=== PATIENT | female | born 1940 | race Caucasian/White ===

== ENCOUNTER 2019-12-24 14:30 | Outpatient (CLI) | payer OTHER, SELFPAY ==
[2019-12-24 16:51] LABS: CRP 0.5 mg/dL (<1.0); Rheumatoid Factor < 8.6 IU/ML (<12); Uric Acid 4.6 mg/dL (2.5-7.5)
[2019-12-24 16:55] LABS: Erythrocyte Sedimentation Rate 25 mm/hr (0-20)
[2019-12-26 09:56] LABS: ANA Cascade Screen Positive (Negative)
[2019-12-26 22:09] LABS: Anti Cyclic Citrullinated Pept <16 Units (<20)
[2019-12-27 10:32] LABS: ANCA Screen Negative (Negative); Myeloperoxidase Ab <1.0 AI (<1.0); Proteinase-3 Ab <1.0 AI (<1.0); S cerevisiae Ab (IgA) 4.9 U (<=20.0); S cerevisiae Ab (IgG) 13.4 U (<=20.0)
[2019-12-29 11:56] LABS: Chromatin (Nucleosomal) Ab <1.0; Chromatin Antibody Charge YES; DNA (ds) Antibody Charge YES; RNP Antibody 1.4; RNP Antibody Charge YES; Sm Antibody <1.0; Sm Antibody Charge YES; Sm/RNP Antibody <1.0; Sm/RNP Antibody Charge YES
== END 2019-12-24 14:31 | disposition home or self-care (01) ==
PROVIDERS: PCP Family Medicine; Visit Provider Internal Medicine
DX: M19.90 Unspecified osteoarthritis, unspecified site (principal); Z11.59 Encounter for screening for other viral diseases
CPT/HCPCS: 36415; 84550; 85652; 86021; 86038; 86140; 86200; 86430; 86671

== ENCOUNTER 2019-12-24 15:29 | Outpatient (CLI) | payer OTHER, SELFPAY ==
--- NOTE | ~2019-12-24 | XR_ITS ---
EXAMINATION: XR foot LT standing 2V EXAM DATE: 12/24/2019 16:15 INDICATION: Polyarticular osteoarthritis. TECHNIQUE: Frontal and lateral projections of the left foot. There is no prior study for comparison . FINDINGS: There is moderate left 1st MTP primary osteoarthritis. There is severe talonavicular primar y osteoarthritis. Otherwise relatively mild osteoarthritis. There are no acute fractures or dislocati ons identified. There is no subcutaneous gas. The soft tissue is unremarkable. There are no radio paque foreign bodies. There are no bony erosions identified. IMPRESSION: Advanced left talonavicular and moderate 1st MTP osteoarthritis. Reviewed, dictated and finalized at location G.
--- NOTE | ~2019-12-24 | XR_ITS ---
EXAMINATION: XR foot RT standing 2V EXAM DATE: 12/24/2019 16:15 INDICATION: Osteoarthritis. TECHNIQUE: Frontal and lateral projections of the right foot. There is no prior study for compariso n. 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 There is severe hallu x valgus and moderate 1st MTP osteoarthritis. There are no bony erosions identified. There are no acu te fractures or dislocations identified. There is no subcutaneous gas. The soft tissue is unremarka ble. There are no radiopaque foreign bodies. IMPRESSION: Severe right hallux valgus, moderate 1st MTP osteoarthritis. Reviewed, dictated and finalized at location G.
--- NOTE | ~2019-12-24 | XR_ITS ---
XR knee LT 3V, XR knee RT 3V 12/24/2019 16:16 (accession [id number]), 12/24/2019 16:15 (accession [id number]) Indication: Osteoarthritis. Knee pain. Procedure: 3 views of each knee Comparison: No prior studies for comparison. Findings: There is mild tricompartment osteoarthritis of the right knee. No significant degenerative change of the left knee. No fracture or traumatic malalignment. No significant joint effusion. Impression: 1: Mild tricompartment osteoarthritis of the right knee. Reviewed, dictated and finalized at location A. Impression: 1: Mild tricompartment osteoarthritis of the right knee. Impression: 1: Mild tricompartment osteoarthritis of the right knee.
--- NOTE | ~2019-12-24 | XR_ITS ---
EXAMINATION: XR hand BI arthritis min 3V EXAM DATE: 12/24/2019 16:16 INDICATION: Osteoarthritis. TECHNIQUE: Right hand frontal, lateral and oblique projections obtained and reviewed. Left hand fron joey, lateral and oblique projections obtained and reviewed. Catchers projection of both hands. There is no prior study for comparison. FINDINGS: Right hand: Severe primary osteoarthritis at the 3rd, 4th and 5th MCP joints and the 1st carpometacar pal joint with subluxations. Moderate primary osteoarthritis at the distal interphalangeal joints and triscaphe joint. This osteoarthritis at other joints. There are no bony erosions identified. Left hand: Symmetric to the contralateral side with severe osteoarthritis at the 3rd 4th and 5th MCP joints and 1st carpometacarpal joint, with subluxations. There is moderate distal interphalangeal umair nt and triscaphe primary osteoarthritis. There are no bony erosions identified. IMPRESSION: Symmetric advanced bilateral osteoarthritis with the 2nd-5th MCP joints and 1st CMC joint s most affected. Reviewed, dictated and finalized at location G. IMPRESSION: Symmetric advanced bilateral osteoarthritis with the 2nd-5th MCP raya ints and 1st CMC joints most affected.
== END 2019-12-24 15:30 | disposition home or self-care (01) ==
LOC: ANHIMG 15:33
PROVIDERS: PCP Family Medicine; Visit Provider Internal Medicine
DX: M19.041 Primary osteoarthritis, right hand (principal); M19.042 Primary osteoarthritis, left hand; M20.11 Hallux valgus (acquired), right foot; M19.072 Primary osteoarthritis, left ankle and foot; M17.0 Bilateral primary osteoarthritis of knee
CPT/HCPCS: 36415; 73130; 73562; 73620; 84550; 85652; 86021; 86038; 86140; 86200; 86430; 86671

== ENCOUNTER 2020-01-27 11:01 | Observation (INO) | payer OTHER, SELFPAY ==
[2020-01-27] VITALS (9 sets, daily range): BP systolic 110–163; BP diastolic 50–94; PULSE 62–92; RESP 16–20; TEMP 36.8–37.1; O2SAT 96–100; BMI 21.9
--- NOTE | ~2020-01-27 | CT_ITS ---
EXAMINATION: CT abdomen pelvis w con DATE: 01/27/2020 13:59 INDICATION: Lower abdominal pain, diarrhea. Rectal bleeding. TECHNIQUE: Computed tomography (CT) of the abdomen and pelvis was performed with 100 cc Omnipaque 350 intravenous contrast. Automated exposure control and iterative reconstruction technique were employe d. Exam dose: 208.18 mGy-cm total exam DLP. COMPARISON: 03/02/2017 CT abdomen pelvis. FINDINGS: There are stable bilateral lower thoracic pleural and pulmonary nodules compared to 03/02/20 17. There are occasional hepatic hypoattenuating lesions, most likely hepatic cysts, measuring up to 8 mm . There is mild intrahepatic and extrahepatic bile duct prominence, likely secondary to cholecystect john. Bilateral renal cysts, measuring up to 12 mm on the right. 5.7 mm on the left. The liver, spleen, pancreas, adrenal glands and kidneys are otherwise unremarkable. No ureteral calc ulus or hydroureteronephrosis. The abdominal aorta is of normal caliber, without aneurysm or dissection. No intraperitoneal or retroperitoneal or pelvic mass lesion or lymphadenopathy. There is diffuse colonic wall thickening. Consider infectious, inflammatory or less likely ischemic c olitis. No bowel obstruction. The urinary bladder is unremarkable. Degenerative spurring of the lower thoracic spine. Status post posterior spinal fusion at L4-5. Multi-level degenerative disc disease of the lumbar spine. There is grade 1 anterolisthesis at L3-4, L4-5 IMPRESSION: Diffuse colonic wall thickening. Consider infectious, inflammatory or less likely ischem ic colitis. No bowel obstruction. Status post cholecystectomy, likely causing mild intrahepatic and extrahepatic bile duct dilatation Hepatic and renal cysts Reviewed, dictated and finalized at Location A. Reviewed, dictated and finalized at location B. IMPRESSION: Diffuse colonic wall thickening. Consider infectious, inflammatory or less likely ischemic colitis. No bowel obstruction. Status post cholecystectomy, likely causing mild intrahepatic and extrahepatic bile duct dilatation Hepatic and renal cysts
--- NOTE | 2020-01-27 12:01 | ED.GIBLEED ---
HPI - GI Bleed General Chief complaint: Nausea/Vomiting/Diarrhea Stated complaint: BLOODY DIAHRREA Time Seen by Provider: 01/27/20 11:53 History of Present Illness HPI Narrative: Patient presents with abdominal pain and rectal bleeding. Yesterday afternoon she had diarrhea which then proceeded to just jimy blood. Today she is only had blood. She has a history of diverticulosis, but not diverticulitis. She has not had rectal bleeding before. The pain was 10 out of 10 earlier today but now is gone. She has not been sick with cough cold fever or chills. She has been self isolating due to COVID. She does not smoke drink or do drugs. Her previous surgeries include hysterectomy, appendectomy, and oophorectomy. Related Data Home Medications Medication Instructions Recorded Confirmed magnesium 250 mg tablet 250 mg PO 3XW 05/28/19 zinc acetate 50 mg (zinc) capsule 50 mg PO DAILY 01/07/20 Allergies Allergy/AdvReac Type Severity Reaction Status Date / Time alendronate sodium Allergy Severe Severe Verified 01/14/20 14:29 joint pain Review of Systems Review of Systems: Narrative: CONSTITUTIONAL: Denies fever, chills, or sweats. EYES: Denies visual changes, redness, or discharge. ENT: Denies rhinorrhea, congestion, sore throat, or otalgia. CARDIOVASCULAR: Denies chest pain, palpitations, or edema. RESPIRATORY: Denies cough or dyspnea. GASTROINTESTINAL: He had abdominal pain, and diarrhea, but not nausea or vomiting. GENITOURINARY: Denies dysuria or hematuria. SKIN: Denies rash or itching. MUSCULOSKELETAL: Denies back pain, joint pain, or myalgia. NEUROLOGIC: Denies headache, numbness, or weakness. PSYCHIATRIC: Denies anxiety or depression. 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 Hx of blood clots Hyperlipidemia LDL goal <100 Inflammatory arthritis Osteoporosis (~2008) Other specified counseling Screening for malignant neoplasm of breast Undifferentiated connective tissue disease (~2017) Surgical History Surgical History H/O dilation and curettage H/O: hysterectomy History of carpal tunnel release of both wrists History of oophorectomy Hx of cholecystectomy Hx of repair of right rotator cuff Social History Social History Smoking status: Never smoker Alcohol intake: current Exam Narrative: Exam Narrative: GENERAL: Well-appearing, well-nourished, and in no acute distress. Aleksandra little lady HEAD: Normocephalic, atraumatic. EYES: PERRLA and EOMI. ENT: Nares clear, no rhinorrhea or epistaxis. Mucous membranes moist. NECK: Supple. CHEST: Clear to auscultation. No respiratory distress. HEART: Regular rate and rhythm. No murmur heard. Normal peripheral pulses. ABDOMEN: Soft, nontender, nondistended, normal active bowel sounds. Rectal exam has nontender hemorrhoid, and blood-streaked mucus. EXTREMITIES: Normal range of motion. No edema. SKIN: Warm, dry, no rash. NEURO: No focal deficits. Alert and oriented x3. PSYCH: Normal mood and affect. Course Reevaluation(s) Reevaluation #1: We need to talk to the patient about colitis and being admitted. She is very worried about her cat Jose Luis, who has lymphoma, that needs to be fed every 6 hours soft Food not hard food. She has 2 daughters that she is going to try to call and see if they can feed the cat. I explained she needed to stay to get the blood counts to be sure she did not need a blood transfusion. She will also get IV antibiotics to kill the infection. She agreed to stay. Date: 01/27/20 Time: 15:15 Consultations Consultation #1: Call Dr. Sifuentes to consult on the colitis and he agrees. Date:
[2020-01-27] MEDS: SODIUM CHLORIDE 0.9% IV 1,000 ML 500 ML IV CONT (12:05)
[2020-01-27 12:38] LABS: Basophils Percent Auto 0.3 % (0.2-1.2); Eosinophils Percent Auto 0.1 % (0-4.4); Hematocrit 40.3 % (37.0-47.0); Hemoglobin 12.8 g/dL (12.0-15.0); Immature Granulocyte Absolute 0.03 K/mm3 (0.00-0.031); Immature Granulocyte Percent A 0.3 % (0-0.5); Lymphocytes Absolute Auto 1.26 K/mm3 (0.9-3.2); Lymphocytes Percent Auto 11.5 % (18.3-44.2); Mean Corpuscular HGB Conc 31.8 g/dl (32-36); Mean Corpuscular Hemoglobin 27.9 pg (26-34); Mean Platelet Volume 9.7 fl (7.4-10.4); Monocytes Absolute Auto 0.6 K/mm3 (0.1-0.6); Monocytes Percent Auto 5.8 % (2.6-8.5); Platelet Count Result 272 k/mm3 (150-375); Red Blood Count 4.58 M/mm3 (4.2-5.4)
[2020-01-27 13:42] LABS: Alanine Aminotransferase 15 U/L (4-35); Alkaline Phosphatase 115 U/L (38-126); Aspartate Amino Transferase 28 U/L (14-36); Bilirubin,Total 0.8 mg/dL (0.2-1.3); Blood Urea Nitrogen 19 mg/dL (7-17); Calcium 9.5 mg/dL (8.4-10.2); Carbon Dioxide 23 mmol/L (22-30); Chloride 105 mmol/L (98-107); Estimated CRCL calculation 47 ml/min; Estimated Glomerular Filt Rate > 60; Glucose 91 mg/dL (65-105); Lipase 61 U/L (23-300); Potassium 3.6 mmol/L (3.4-5.0); Sodium 140 mmol/L (137-145)
[2020-01-27 14:54] LABS: Add Urine Microscopic? YES; Appearance Urine Clear (Clear); Bilirubin Urine Negative (Negative); Blood Urine 1+ (Negative); Color Urine Yellow (Yellow); Glucose Urine UA Negative (Negative); Ketones Urine 2+ mg/dL (Negative); Leukocyte Esterase Ur Trace LEU/UL (Negative); Mucus Urine Rare /lpf; Nitrate Urine Negative (Negative); Protein Urine Negative (Negative); Squamous Epithelial Cell Urine Rare /hpf (Few); Urobilinogen Urine Negative mg/dL (<2.0); WBC Urine 0-3 /hpf
[2020-01-27 14:58] LABS: Specific Grav Ur 1.034 (1.001-1.035)
[2020-01-27 15:33] LABS: Hematocrit 44.6 % (37.0-47.0); Hemoglobin 14.3 g/dL (12.0-15.0)
--- NOTE | 2020-01-27 16:44 | ADMGEN ---
This patient, Rula Nix, was admitted to 2 Medical Room 249-01. Patient/family oriented to hospital policies and general routines including ID bracelet, bed and alarms, visiting hours, pain management, procedures, bathroom and other care routines, personal items, smoking policy, room service/diet, and visiting hours. Valuables list has been completed. Information on how to activate the Rapid Response Team has been discussed. Patient/Family are encouraged to report perceived risks to care and to ask questions if they do not understand what they are told or what they should do.
[2020-01-27 20:52] LABS: Hematocrit 36.8 % (37.0-47.0); Hemoglobin 11.9 g/dL (12.0-15.0)
--- NOTE | 2020-01-28 00:12 | PM.IMHP ---
H&P: HPI History of Present Illness Chief complaint: colitis Narrative: Rula Nix is a 79 year old female who has a history of lupus possibly RA and has been on Plaquenil. The patient stated that a couple days ago she got some yogurts from the store and they felt warm. The patient stated that she eats those on her cereal every day. She ate it on her cereal yesterday morning. She started to have diarrhea and settle down for few hours and she did a few things at home and she started to feel weak in then the diarrhea started again last night but it was normal color. There was no blood in her stool at that time. Later in the evening she noticed that there was bright red blood and that it was leaking in her underpants. She said she had 3 bloody stools last night and then 3 more bloody stools this morning. She said at 1st they were hard black stools with blood around it. And then it just turned did to watery blood. She has not seen any more blood since she has been admitted. Of any hemorrhoids. A DVT in the past but is no longer on any antibiotics not for some time. She is not currently on any anticoagulation or aspirin. The patient stated that she stop taking her Plaquenil couple days ago because she thought maybe it was causing her to have some side effects. She said she has kind of had an upset stomach for couple days I cramping and acid reflux. Patient has been self isolating due to covid 19. Patient feels like she got food poisoning from her yogurt. She had severe pain earlier and a CT scan was obtained diffuse colonic wall thickening. Consider infectious inflammatory least likely ischemic colitis. No bowel obstruction. Status post cholecystectomy likely causing mild intrahepatic and extrahepatic biliary duct dilatation. Hepatic and renal cyst. GI specialist has been consulted. H&H is been ordered every 6 hours. Her H&H went from 14.3 and 44.6 to 11.9 and 36.8. At this time her bleeding has stopped. Patient has been typed and screened but no blood is ordered at this time. She is not having any signs and symptoms. Earlier which had all the regular diarrhea she did have some weakness but not at this point. Patient was started on and IV fluids. No fever no nausea no vomiting no chills. Date of service 01/27/2020 Review of Systems Review of Systems: All systems reviewed & are unremarkable except as noted in HPI and below Constitutional: Constitutional: Reports as per HPI and Reports no additional constitutional complaints Eyes: Eyes: Reports as per HPI and Reports no additional eye complaints ENT: Reports system reviewed and no additional complaints, except as documented and Reports Normal hearing present Cardiovascular: Cardiovascular: Reports no additional cardiovascular complaints Respiratory: Respiratory: Reports no additional respiratory complaints and Reports no additional respiratory complaints Gastrointestinal: Gastrointestinal: Reports as per HPI and Reports no additional gastrointestinal complaints Musculoskeletal: Musculoskeletal: Reports no additional musculoskeletal complaints Integumentary/Breasts: Skin/Breast: Reports system reviewed and no additional complaints, except as docu and Reports as per HPI Neurologic: Reports system reviewed and no additional complaints, except as documented, Reports as per HPI and Reports Normal hearing present Psychiatric: Psychiatric: Reports no additional psychiatric complaints and Reports as per HPI Endocrine: Endocrine: Reports no additional endocrine complaints Hematologic/Lymphatic: Hematologic/Lymphatic: Reports no additional hematologic/lymphatic complaints Allergic/Immunologic: Allergic/Immunologic: Reports no additional allergic/immunologic complaints PMFSH Past Medical History Medical History Allergies LITA positive Arthritis Encounter for screening for other viral diseases Generalized osteoarthritis of multiple
[2020-01-28 02:00] VITALS: BP 100/44; PULSE 68; RESP 20; TEMP 36.1; O2SAT 98
[2020-01-28 04:07] LABS: Hematocrit 36.5 % (37.0-47.0); Hemoglobin 11.8 g/dL (12.0-15.0)
[2020-01-28 06:00] VITALS: BP 110/57; PULSE 66; RESP 21; TEMP 36.8; O2SAT 100
[2020-01-28 09:00] LABS: Hematocrit 42.7 % (37.0-47.0)
[2020-01-28 10:14] LABS: IFOB Positive Control Positive; Immunochemical Fecal Occult Bl Positive (N)
--- NOTE | 2020-01-28 13:08 | ECG_ITS ---
Measurements Intervals [place] Rate: 70 P: 52 KS: 168 QRS: -2 QRSD: 98 T: 36 QT: 400 QTc: 432 Interpretive Statements SINUS RHYTHM EARLY PRECORDIAL R/S TRANSITION BORDERLINE ECG Electronically Signed On 01-28-2020 14:08:38 CDT by Cruz Weinstein D.O.
--- NOTE | 2020-01-28 14:51 | PM.DS ---
DS: Admitting Diagnosis Admitting Diagnosis Admitting Diagnosis: Noninfective gastroenteritis and colitis, unspecified DS: Discharge Diagnosis Discharge Diagnosis (1) Colitis: Code(s): K52.9 - Noninfective gastroenteritis and colitis, unspecified Status: Acute Assessment and Plan: Patient admitted for abdominal pain, colitis on CT, and diarrhea with some blood had to have colitis. Patient states this has resolved she is not having any more abdominal pain or diarrhea. She explains that she ate some yogert and then had symptoms. She is eager for discharge as she has a sick pet at home. I do believe she is stable for discharge since she is having no more symptoms, no diarrhea, WBC is normal, and she has no fevers. She is up walking around the room without issue. I have called GI and discussed this with him. He saw the patient and agreed. May consider getting an EGD later on. She does have stool cultures pending and these will be monitored until finaliazed. She was given 3 days of azithromycin and told to hold her Plaquenil until monday. Her QTc is normal, low risk of ventricular arrhythmias. She should follow up with GI and her PCP (2) RB (rectal bleeding): Code(s): K62.5 - Hemorrhage of anus and rectum Status: Acute Assessment and Plan: Hgb wax and wanes but back to normal today. Last colonoscopy 2019 normal with some hemorrhoids. No additional blood per rectum. (3) Generalized osteoarthritis of multiple sites: Code(s): M15.9 - Polyosteoarthritis, unspecified Status: Acute Assessment and Plan: Patient initially was diagnosed with RA and then lupus she had been on Plaquenil but decided to stop taking it. f/u with prescribing doctor. (4) Lupus: Code(s): M32.9 - Systemic lupus erythematosus, unspecified Status: Chronic Assessment and Plan: seee above DS: Summary Hospital Course Reason for hospitalization: colitis Hospital Course: Patient is 79-year-old female who presented emergency room for diffuse abdominal pain, diarrhea and blood per rectum after eating warm yogurt. Patient's vitals in the ER were temperature 98.2?, pulse 92, respiratory rate 18, blood pressure 155/80, pulse ox 98 on room air. White blood cell count slightly elevated 11.0, hemoglobin 12.8, hematocrit 40.3, platelets 272. BMP within normal limits. CT of the abdomen pelvis showed diffuse colonic wall thickening with no obstruction. Patient was started on IV Zosyn and admitted to the hospitalist Service, her hemoglobin wax and waned but was stable at discharge. She had no fevers, further diarrhea, or further bleeding per rectum. Please see above for further details. Patient was eager for discharge and was stable. Patient was educated about the worrisome signs and symptoms to come back to emergency room for was discharged stable condition. Status at Discharge Functional status at discharge: independent ambulation Overall status at discharge: patient is back to baseline Time Spent with Patient Time attestation: Total time spent providing and/or coordinating discharge services:38 min Time spent: Greater than 30 minutes Exam Narrative: Exam Narrative: General: Elderly patient resting comfortably in bed in no acute distress HEENT: normocephalic Neck: supple Neuro: Alert and oriented x4 CV:RRR Resp:CTA Abd: Soft, non distended. No pain to palpation. Positive bowel sounds Extremities: No swelling, erythema, or pain to palpation. DS: Data Data Completed and Pending Labs on day of discharge: Labs from last 24 hours 01/28/20 01/28/20 01/28/20 09:56 09:55 08:50 Hgb 14.0 Hct 42.7 Urine Color Urine Appearance Urine pH Ur Specific [place] Urine Protein Urine Glucose (UA) Urine Ketones Ur Blood (Man) Urine Nitrate Urine Bilirubin Urine Urobilinogen Leukocyte Esterase Rfl Urine RBC Urine WBC Ur [place]
--- NOTE | 2020-01-28 15:37 | WPDGICN ---
Assessment and Plan Assessment and plan (1) Colitis: Code(s): K52.9 - Noninfective gastroenteritis and colitis, unspecified Status: Acute Assessment and Plan: improved now, she is doing better and no more rectal bleeding, could have been infectious or ischemic. tolerating diet, exam is benign stool samples pending ok to go home with 3 more days of abx and follow up office in ~ 2 weeks. (2) RB (rectal bleeding): Code(s): K62.5 - Hemorrhage of anus and rectum Status: Acute Assessment and Plan: hb stable, resolved- from colitis (3) Epigastric discomfort: Code(s): R10.13 - Epigastric pain Status: Acute Assessment and Plan: intermittent, will reassess when she comes to office may need to have EGD as outpatient (4) Undifferentiated connective tissue disease: Onset Date: ~2017 Code(s): M35.9 - Systemic involvement of connective tissue, unspecified Status: Acute Assessment and Plan: she has seen rheumatologits, now holding plaquenil with recent diarrhea (5) Lupus: Code(s): M32.9 - Systemic lupus erythematosus, unspecified Status: Chronic GI Consult Note Consult date/time: 01/28/20 15:37 Reason for consult: diarrhea, colitis HPI: Rula Nix is a 79 year old female history of RA and recently diagnosed of SLU started on Plaquenil, also few days ago had some yogurt that she thinks could have been . She had new onset of liquid stools then followed by bloody stools with abdominal pain. She came to ER, CT scan showed diffuse colitis and admitted to the hospital, got iv zosyn. No more blood in stools and feeling much better. She had a colonoscopy about a year ago in [facility], had EGD but years ago. She also is complaining of intermittent epigastric discomfort, gurgling sensation and wonders if could have gas/gerd but prefers not to take antacids. Review of Systems Constitutional: Constitutional: Denies headache(s) and Denies weakness Eyes: Eyes: Denies blurry vision ENT: Reports Normal hearing present, Denies headache(s) and Denies neck pain Cardiovascular: Cardiovascular: Denies chest pain and Denies dyspnea Respiratory: Respiratory: Denies dyspnea Gastrointestinal: Gastrointestinal: Reports no additional gastrointestinal complaints Genitourinary: Genitourinary: Denies dysuria Musculoskeletal: Musculoskeletal: Denies neck pain Integumentary/Breasts: Skin/Breast: Denies dry skin Neurologic: Reports Normal hearing present, Denies headache(s) and Denies weakness Psychiatric: Psychiatric: Denies anxiety Endocrine: Endocrine: Denies change in body appearance Hematologic/Lymphatic: Hematologic/Lymphatic: Denies easy bleeding Allergic/Immunologic: Allergic/Immunologic: Denies urticaria PMFSH Past Medical History Medical History (Updated 01/28/20 @ 15:42 by Sam Merrill MD) Allergies LITA positive Arthritis Encounter for screening for other viral diseases Epigastric discomfort 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 Screening for malignant neoplasm of breast Undifferentiated connective tissue disease (~2017) Surgical History Surgical History (Updated 01/28/20 @ 00:23 by Dianna Gurbbs NP) H/O dilation and curettage H/O: hysterectomy History of appendectomy History of carpal tunnel release of both wrists History of oophorectomy Hx of cholecystectomy Hx of repair of right rotator cuff Family History Family History (Updated 01/28/20 @ 00:21 by Dianna Grubbs NP) Mother Family history of malignant neoplasm of breast in first degree relative, Onset Age: 70 Family history of arthritis Sibling Family history of arthritis Father Pneumo
[2020-02-04 23:41] LABS: Norovirus RNA PCR, Stool NOT DETECTED
--- NOTE | 2020-02-05 11:09 | PC.NURSE ---
Stool cx and Noro virus are both negative.
== END 2020-01-28 16:55 | disposition home or self-care (01) ==
LOC: ANHED 15:05 → ANH2MED 16:03
PROVIDERS: Emergency Medicine Emergency Medical Services; Nurse Practitioner; Admitting Provider Family Medicine; Emergency Provider Emergency Medicine; PCP Family Medicine; Visit Provider Internal Medicine
DX: K52.9 Noninfective gastroenteritis and colitis, unspecified (principal); K62.5 Hemorrhage of anus and rectum; E78.5 Hyperlipidemia, unspecified; M81.0 Age-related osteoporosis without current pathological fracture; M32.9 Systemic lupus erythematosus, unspecified; M19.90 Unspecified osteoarthritis, unspecified site
CPT/HCPCS: 36415; 74177; 80053; 81001; 82274; 83690; 85014; 85018; 85025; 85610; 86850; 86900; 86901; 87045; 87046; 87427; 87798; 89055; 93005; 96361; 96365; 96366; 96367; 99285; G0378; J2543; J7030; Q9967

== ENCOUNTER 2020-03-16 00:46 | Outpatient (CLI) | payer OTHER, SELFPAY ==
[2020-03-16 19:34] LABS: SARS-CoV-2 RNA PCR Negative
== END 2020-03-16 00:47 | disposition home or self-care (01) ==
LOC: ANHCOVIDDT 00:46
PROVIDERS: PCP Family Medicine; Visit Provider Internal Medicine Gastroenterology
DX: Z01.812 Encounter for preprocedural laboratory examination (principal); Z20.828 Contact with and (suspected) exposure to other viral communicable diseases
CPT/HCPCS: 87635; C9803; U0003

== ENCOUNTER 2020-03-18 01:48 | Day surgery (SDC) | payer OTHER, SELFPAY ==
[2020-03-10 10:38] VITALS: BMI 22.4
--- NOTE | 2020-03-16 14:48 | WPDANESEPPF ---
Anes - Initial Pre Proc Eval Procedure: Operation Date: 03/18/20 10:30 Proposed Procedures p Esophagogastroduodenoscopy - Sam Merrill MD Date/Time: 03/16/20 14:48 Surgeon: Sam Merrill MD Pre Op Diagnosis: ABDOMINAL PAIN Patient Data Age: 79 Gender: F Height: 1.52 m Weight: 52 kg Allergies Allergy/AdvReac Type Severity Reaction Status Date / Time alendronate sodium Allergy Severe Severe Verified 03/18/20 09:49 joint pain wheat Allergy Mild Abdominal Verified 03/18/20 09:49 Pain Home Medications Medication Instructions Recorded Confirmed Type magnesium 250 mg tablet 250 mg PO 3XW 05/28/19 03/10/20 History zinc acetate 50 mg (zinc) capsule 50 mg PO DAILY 01/07/20 03/10/20 History hydroxychloroquine 200 mg tablet 400 mg PO DAILY #60 tablet 01/14/20 03/10/20 Rx Patient hx anesthesia problems: none Family hx anesthesia problems: none PMFSH Social History Social History Smoking status: Never smoker Alcohol intake: former Substance use: never Substance use type: does not use Gender identity (if verbalized by the patient): Female Spiritual care concerns: No Anes - Eval Final PreProcedure Day of Procedure 03/16/20 14:48 Patient weight: normal Heart: regular rate and rhythm Lungs: clear to auscultation and normal air movement Airway: Mallampati scale class II Neurological: alert and oriented Last oral intake: >/= 8 hours ASA classification: III Emergent: no Anesthetic plan: proceed Anesthesia type and monitoring: general GIVS and standard monitoring Informed Consent: The patient's anesthetic plan and its attendant risks and benefits were discussed with the patient/family/POA. Questions were solicited and answers provided to the satisfaction of the patient/family/POA.
[2020-03-18 09:50] VITALS: BP 144/67; PULSE 72; RESP 18; TEMP 36.6; O2SAT 99
[2020-03-18] MEDS: LACTATED RINGERS 1,000 ML 150 ML IV CONT (10:15)
--- NOTE | 2020-03-18 10:15 | PM.HPGS ---
History of Present Illness History of Present Illness Consent: Risks, benefits, and alternatives have been discussed and questions answered. Patient agrees to proceed with procedure. Chief complaint: ABDOMINAL PAIN Narrative: Rula Nix is a 79 year old female with bloating and occasionally throat discomfort after swallowing Review of Systems Constitutional: Constitutional: Denies headache(s) and Denies weakness Eyes: Eyes: Denies blurry vision ENT: Reports Normal hearing present, Denies headache(s) and Denies neck pain Cardiovascular: Cardiovascular: Denies chest pain and Denies dyspnea Respiratory: Respiratory: Denies dyspnea Gastrointestinal: Gastrointestinal: Reports no additional gastrointestinal complaints Genitourinary: Genitourinary: Denies dysuria Musculoskeletal: Musculoskeletal: Denies neck pain Integumentary/Breasts: Skin/Breast: Denies dry skin Neurologic: Reports Normal hearing present, Denies headache(s) and Denies weakness Psychiatric: Psychiatric: Denies anxiety Endocrine: Endocrine: Denies change in body appearance Hematologic/Lymphatic: Hematologic/Lymphatic: Denies easy bleeding Allergic/Immunologic: Allergic/Immunologic: Denies urticaria [facility] Social History Social History Smoking status: Never smoker Alcohol intake: former Substance use: never Substance use type: does not use Gender identity (if verbalized by the patient): Female Spiritual care concerns: No Meds Home Medications and Allergies Home Medications Medication Instructions Recorded Confirmed Type magnesium 250 mg tablet 250 mg PO 3XW 05/28/19 03/10/20 History zinc acetate 50 mg (zinc) capsule 50 mg PO DAILY 01/07/20 03/10/20 History hydroxychloroquine 200 mg tablet 400 mg PO DAILY #60 tablet 01/14/20 03/10/20 Rx Allergies Allergy/AdvReac Type Severity Reaction Status Date / Time alendronate sodium Allergy Severe Severe Verified 03/18/20 09:49 joint pain wheat Allergy Mild Abdominal Verified 03/18/20 09:49 Pain Vital Signs Vital Signs - 24 hr 03/18/20 09:50 Temperature 97.9 F Pulse Rate 72 Respiratory Rate 18 Blood Pressure 144/67 H Pulse Oximetry 99 Exam Const: General: comfortable and no acute distress HENMT: General nose exam: Normal nares present Eyes: General: appearance normal, both eyes and all related structures Neck: Neck: no JVD Resp: Auscultation: clear to auscultation bilaterally Cardio: Rate: regular rate Rhythm: regular rhythm GI: Inspection: non-distended GI Palp: Yes Soft to palpation Skin: General skin exam: normal color Neuro: General: gait normal Speech: normal speech Extrem: General: normal to inspection Psych: Mental Status: mental status grossly normal Assessment and Plan Assessment and plan (1) Epigastric discomfort: Code(s): R10.13 - Epigastric pain Status: Acute Assessment and Plan: will proceed with egd (2) Rheumatoid arthritis: Code(s): M06.9 - Rheumatoid arthritis, unspecified Status: Acute
[2020-03-18] MEDS: BENZOCAINE (*SP) 60 ML SPRAY CAN (HURRICAINE) 1 SPRAY MUCOUS MEM (10:27)
[2020-03-18 10:40] VITALS: BP 92/46; PULSE 64; RESP 16; O2SAT 98
[2020-03-18 10:50] VITALS: BP 107/52; PULSE 66; RESP 22; O2SAT 99
[2020-03-18 11:00] VITALS: BP 107/55; PULSE 67; RESP 20; O2SAT 100
== END 2020-03-18 11:32 | disposition home or self-care (01) ==
PROVIDERS: PCP Family Medicine; Visit Provider Internal Medicine Gastroenterology
PROC: 0DJ08ZZ Inspection of Upper Intestinal Tract, Via Natural or Artificial Opening Endoscopic (ICD-10-PCS; CPT 43235; principal; 2020-03-18 10:30)
DX: R10.13 Epigastric pain (principal); K44.9 Diaphragmatic hernia without obstruction or gangrene; M06.9 Rheumatoid arthritis, unspecified; Z79.899 Other long term (current) drug therapy
CPT/HCPCS: 43239; 88305; J2704; J7120

== ENCOUNTER 2021-03-09 13:33 | Outpatient (RCR) | payer OTHER, SELFPAY ==
--- NOTE | 2021-03-09 14:47 | PTOPEVAL ---
PHYSICAL THERAPY EVALUATION AND PLAN OF CARE 03-09-21 Mrs. Nix attended the PT evaluation appointment for B LE lymphedema today. Rula was educated on lymphedema, what PT treatment involves, compression velcro garments, etc. The discussion was at length and she determined that she was not sure she wants therapy. She is to call if she has any questions. If she wants to start treatment for her legs or come in for more information about the compression garments, she is to call for an appointment. If she comes in for additional treatment, a plan of care and goals will be completed at that time. The treatment plan would be for 2-3 x/week, until 4 weeks from now, Apr 06, 2021. Thank you for referring Rula Nix to [facility] Please review, sign, date and return this plan of care MURPHY. I agree with and certify that the following plan of care is medically necessary. Referring Physician Date Attending Provider: Nohemy Wilburn NP PT Outpatient Evaluation Document 03/09/21 13:40 ANAHI (Rec: 03/09/21 14:47 ANAHI [id number]) Outpatient Past Medical History Past Medical History Source of Past Medical History Recalled from Previous Visit, Confirmed with Patient/Family Neurological History Hx Neurological Disorders No Significant History Cardiovascular History Hx Deep Vein Thrombosis Yes: 1980s in [place] Hx Heart Murmur Yes Hx Myocardial Infarction Yes Hx Other Cardiac Disorders Yes: pin hole in heart Respiratory History Hx Respiratory Disorders No Significant History Gastrointestinal History Hx Appendectomy Yes Hx Cholecystectomy Yes Hx Colitis Yes: BLOODY Hx Polyps Yes Hx Ulcerative Colitis Yes Genitourinary History Hx Genitourinary Disorders No Significant History Musculoskeletal History Hx Arthritis Yes: rheumatoid arthritis- effects hands Hx Back Pain Yes: chronic back pain, sciatica into R leg Hx Orthopedic Surgery Yes: back surgery; R and L rot cuff surgery Hx Other Musculoskeletal Disorders Yes: lupus, R hammer toe removed 2018;L ankle sprain/ calcium build up Hematological History Hx Hematological Disorders No Significant History Endocrine History Hx Endocrine Disorders No Significant History HEENT History Hx HEENT Disorders No Significant History Integumentary History Hx Skin Disorders No Significant History Reproductive History Hx Hysterectomy Yes Psychosocial History Hx Psychiatric Disorders No Significant History Pain History History of Any Previous or Ongoing No Significant History Instance of Pain Evaluation Information Problem Diagnosis B LE lymphedema Onset
--- NOTE | 2021-04-26 16:15 | PCPTNOTE ---
PHYSICAL THERAPY DISCHARGE 04-26-21 Attending Provider: Nohemy Wilburn NP Patient:Rula Nix Date of :1940 Mrs. Nix has not returned for any further treatments since the initial evaluation on 03/09/2021, therefore she will be discharged at this time. Thank you for referring this patient to [facility]. Please review, sign, date and return this discharge summary MURPHY. I have been updated about the patient's current status and I agree with discharge from the above service at this time. Referring Physician Date
== END 2021-04-27 08:46 | disposition home or self-care (01) ==
LOC: ANHPT 13:33
PROVIDERS: PCP Family Medicine; Visit Provider Nurse Practitioner
DX: I89.0 Lymphedema, not elsewhere classified (principal)
CPT/HCPCS: 97162

== ENCOUNTER 2021-09-23 16:11 | Outpatient (CLI) | payer OTHER, SELFPAY ==
--- NOTE | ~2021-09-23 | XR_ITS ---
XR lumbar spine min 4V 09/23/2021 17:15 Indication: Back pain Procedure: 5 views lumbar spine Comparison: No prior studies for comparison. Findings: There is levoscoliosis of the thoracolumbar spine. There are fusion changes posteriorly at L4-5. There is a prosthetic disc device at L4-5. There is grade 1 degenerative spondylolisthesis at L 3-4. There is disc narrowing at all lumbar levels. There are cholecystectomy clips. No acute fracture or traumatic malalignment. Impression: 1: Moderate lumbar spondylosis with levoscoliosis of the thoracolumbar spine. Reviewed, dictated and finalized at location A. L FOLDER Impression: 1: Moderate lumbar spondylosis with levoscoliosis of the thoracolumbar spine.
--- NOTE | ~2021-09-23 | XR_ITS ---
XR hip BI wo pelvis 09/23/2021 17:15 Indication: Hip pain after recent fall Procedure: 2 views of each hip Comparison: No prior studies for comparison. Findings: There is mild symmetric osteoarthritis of the hips. No acute fracture, subluxation or dislo cation. There is anatomic alignment. There are partially visualized surgical changes at the lumbosacr al junction. Osteopenia. Impression: 1: No acute fracture. Reviewed, dictated and finalized at location A. CAL TRANSCRIPTION EDITOR Impression: 1: No acute fracture.
== END 2021-09-23 16:12 | disposition home or self-care (01) ==
LOC: ANHIMG 16:17
PROVIDERS: PCP Family Medicine; Visit Provider Internal Medicine
DX: M25.552 Pain in left hip (principal); M47.896 Other spondylosis, lumbar region
CPT/HCPCS: 72110; 73521

== ENCOUNTER 2021-10-12 11:00 | Observation (INO) | payer OTHER, SELFPAY ==
[2021-10-12] VITALS (7 sets, daily range): BP systolic 101–130; BP diastolic 50–81; PULSE 65–77; RESP 14–21; TEMP 36.1–36.7; O2SAT 98–100; BMI 23.0
--- NOTE | ~2021-10-12 | XR_ITS ---
EXAMINATION: XR chest 2V DATE: 10/12/2021 12:34 INDICATION: Weakness. Falls. TECHNIQUE: frontal and lateral views of the chest were obtained. COMPARISON: Chest radiograph dated 06/04/[address] dated 09/03/2018 FINDINGS: Calcified left upper lobe nodule consistent with old granulomatous disease. Skinfold projects over th e lateral left lower lung zone. Or chronic mild bronchiectatic changes in the bilateral lower lobes. No pneumonia, pulmonary edema, pleural effusion or pneumothorax. The cardiomediastinal silhouette is within normal limits for AP technique. Cholecystectomy clips in right upper quadrant. Partially visua lized vertical katia and pedicle screw fixation for a nonvisualized lumbar spinal fusion. Advanced arth ritis at the bilateral shoulders which could represent secondary osteoarthritis superimposed over rep orted rheumatoid arthritis. IMPRESSION: 1. Chronic mild bronchiectatic changes at the bilateral lower lobes. No acute cardiopulmonary disease . Reviewed, dictated and finalized at location A. IMPRESSION: 1. Chronic mild bronchiectatic changes at the bilateral lower lobes. No acute c ardiopulmonary disease.
--- NOTE | ~2021-10-12 | US_ITS ---
EXAMINATION:US venous doppler LE RT INDICATION:Right leg pain and swelling TECHNIQUE: Multiple grayscale, color flow and Doppler images of the right lower extremity deep venous systems were obtained and reviewed. COMPARISON:No prior studies for comparison. FINDINGS: The common femoral, superficial femoral and popliteal veins demonstrate normal respiratory variation, augmentation and compressibility. Color flow is also seen within the posterior tibial, pe roneal, greater saphenous and profunda veins. IMPRESSION: 1: No lower extremity deep venous thrombosis. Reviewed, dictated and finalized at location A.
--- NOTE | ~2021-10-12 | US_ITS ---
EXAMINATION: US venous doppler [facility] DATE: 10/13/2021 09:04 INDICATION: Lower limb swelling TECHNIQUE: Grayscale ultrasound images without and with compression and Doppler ultrasound images of the left lower extremity veins were obtained. COMPARISON: None. FINDINGS: The visualized portions of left common femoral vein, profunda (deep) femoral vein, femoral vein, popl iteal vein, peroneal veins, posterior tibial veins, gastrocnemius vein and greater saphenous vein out flow are patent. IMPRESSION: 1. No deep venous thrombosis in the left lower limb. Reviewed, dictated and finalized at location A.
--- NOTE | ~2021-10-12 | XR_ITS ---
EXAMINATION: XR knee RT 3V DATE: 10/12/2021 12:34 INDICATION: Right knee pain and swelling TECHNIQUE: Anteroposterior, 2 oblique and crosstable lateral views of the right knee were obtained COMPARISON: None. FINDINGS: Alignment is normal. There appears to be depression of a portion of the right lateral tibial plateau with indistinct lateral cortical margin to the more elevated portion of the tibial plateau which rais es concern for fracture. Alternatively this could represent progressive remodeling related to severe osteoarthritis with suggestion of eburnation along both sides of the joint space in the lateral wayne rtment. Mild osteoarthritis in the medial and patellofemoral compartments. Moderate-sized right knee joint effusion without evident layering lipohemarthrosis. Diffuse soft tissue swelling with subcutane ous edema about the right knee and the size proximal calf. IMPRESSION: 1. There appears be new depression of a portion of the articular surface of the lateral tibial platea u which is suspicious for fracture including stress/insufficiency fracture. Alternatively this could represent interval progression to advanced osteoarthritis in the lateral compartment with secondary r emodeling of the lateral tibial plateau. Could consider further evaluation with either CT or MRI for more definitive determination. 2. Moderate-sized right knee joint effusion. Reviewed, dictated and finalized at location A. IMPRESSION: 1. There appears be new depression of a portion of the articular surface of the lateral tibial plateau which is suspicious for fracture including stress/insuf ficiency fracture. Alternatively this could represent interval progression to a dvanced osteoarthritis in the lateral compartment with secondary remodeling of the lateral tibial plateau. Could consider further evaluation with either CT or MRI for more definitive determination. 2. Moderate-sized right knee joint effusion.
--- NOTE | ~2021-10-12 | CT_ITS ---
EXAMINATION: CT knee RT wo con DATE: 10/12/2021 13:57 INDICATION: Right leg pain and swelling with abnormal right knee radiographs TECHNIQUE: High resolution computed tomography (CT) of the right knee was performed without intraveno us contrast. Additional sagittal and coronal reconstructions were performed. Automated exposure contr ol and iterative reconstruction technique were employed. The dose-length product was 418.51 mGy-cm. COMPARISON: Right knee radiographs dated 10/12/2021 FINDINGS: Diffuse osteopenia. Bone alignment is normal. There is advanced osteoarthritis at the lateral compart ment with remodeling and loss of bone stock along the lateral two thirds of the lateral tibial platea u. There is subarticular sclerosis and cystlike change along both the lateral tibial plateau and juxt aposed weightbearing lateral femoral condyle. Fracture with mild fragmentation involving approximatel y 1 x 1 cm region of the lateral margin of the lateral tibial plateau. No other fractures identified. Moderate patellofemoral osteoarthritis and at least mild osteoarthritis in the medial compartment al though severity of joint space narrowing can be underestimated on nonweightbearing imaging. Nonspecif ic moderate-sized right knee joint effusion with moderate/is synovitis at the suprapatellar pouch. Cl uster small loose osteochondral bodies in the popliteal recess. Subcutaneous edema at the visualized proximal calf. Small saphenous varicosities along the lateral and posterior aspect of the knee. IMPRESSION: 1. Advanced osteoarthritis in the lateral compartment with remodeling of the lateral tibial plateau a ccounting for the depression seen on the prior radiographs. There is however a fracture with mild fra gmentation consistent with some subarticular cystic change along the lateral rim of the lateral tibia l plateau. 2. Aspect moderate-sized knee joint effusion with moderate synovitis. Reviewed, dictated and finalized at location A. IMPRESSION: 1. Advanced osteoarthritis in the lateral compartment with remodeling of the la teral tibial plateau accounting for the depression seen on the prior radiograph s. There is however a fracture with mild fragmentation consistent with some sub articular cystic change along the lateral rim of the lateral tibial plateau. 2. Aspect moderate-sized knee joint effusion with moderate synovitis.
--- NOTE | 2021-10-12 11:17 | ECG_ITS ---
Measurements Intervals [place] Rate: 72 P: 55 LA: 153 QRS: 17 QRSD: 104 T: 67 QT: 379 QTc: 415 Interpretive Statements SINUS RHYTHM NORMAL ECG COMPARED TO ECG 01/28/2020 13:25:11 NO SIGNIFICANT CHANGES Electronically Signed On 10-12-2021 17:10:44 CDT by Umair Shelton M.D.
[2021-10-12 11:40] LABS: Basophils Percent Auto 0.5 % (0.2-1.2); Eosinophils Absolute Auto 0.1 K/mm3 (0-0.3); Eosinophils Percent Auto 1.2 % (0-4.4); Hematocrit 41.2 % (37.0-47.0); Hemoglobin 12.9 g/dL (12.0-15.0); Immature Granulocyte Absolute 0.02 K/mm3 (0.00-0.031); Immature Granulocyte Percent A 0.3 % (0-0.5); Lymphocytes Absolute Auto 1.32 K/mm3 (0.9-3.2); Lymphocytes Percent Auto 17.8 % (18.3-44.2); Mean Corpuscular HGB Conc 31.3 g/dl (32-36); Mean Corpuscular Hemoglobin 28.7 pg (26-34); Mean Corpuscular Volume 91.6 fl (80-100); Mean Platelet Volume 9.5 fl (7.4-10.4); Monocytes Absolute Auto 0.6 K/mm3 (0.1-0.6); Monocytes Percent Auto 7.8 % (2.6-8.5); Neutrophils Absolute Auto 5.4 K/mm3 (1.3-6.7); Neutrophils Percent Auto 72.4 % (45.5-73.1); Platelet Count Result 303 k/mm3 (150-375); Red Cell Distribution Width 14.9 % (11.5-14.5); White Blood Count 7.4 K/mm3 (4.5-10.0)
[2021-10-12 11:50] LABS: Alanine Aminotransferase 21 U/L (4-35); Albumin Level 4.2 g/dL (3.5-5.1); Alkaline Phosphatase 96 U/L (38-126); Anion Gap 5 mmol/L (8-16); Aspartate Amino Transferase 32 U/L (14-36); Bilirubin,Total 0.4 mg/dL (0.2-1.3); Blood Urea Nitrogen 16 mg/dL (7-17); Calcium 10.2 mg/dL (8.4-10.2); Carbon Dioxide 31 mmol/L (22-30); Chloride 102 mmol/L (98-107); Estimated Glomerular Filt Rate > 60; Glucose 72 mg/dL (65-110); Potassium 3.7 mmol/L (3.4-5.0); Sodium 138 mmol/L (137-145)
--- NOTE | 2021-10-12 12:20 | ED.EXTPRO ---
HPI - Extremity Problem General Chief complaint: Extremity Problem,Nontraumatic Stated complaint: leg pain and swelling Time Seen by Provider: 10/12/21 11:51 History of Present Illness HPI Narrative: 81 y/o female presents to the ER today for right knee pain. She has history of RA and lupus. She has had problems with this knee for a very long time but has gotten much worse over the past couple of weeks and she is having a hard time walking because of the pain. She has swelling in the right lower leg for the past month that has gotten worse. She has had swelling in this leg in the past but it had gotten better. She also has a history of DVT in the right leg many years ago. She is not currently on any blood thinners. She has problems with frequent falls at home. Her gear hobber set up operator has referred her to ortho for left hip pain she has been having but that appointment is not for another month. She denies any chest pain or shortness of breath. Related Data Home Medications Medication Instructions Recorded Confirmed magnesium 250 mg tablet 250 mg PO 3XW 05/28/19 09/23/21 zinc acetate 50 mg (zinc) capsule 50 mg PO DAILY 01/07/20 09/23/21 Allergies Allergy/AdvReac Type Severity Reaction Status Date / Time alendronate sodium Allergy Severe Severe Verified 09/23/21 14:30 joint pain wheat Allergy Mild Abdominal Verified 09/23/21 14:30 Pain Review of Systems Constitutional: Constitutional: Denies chills and Denies fever(s) Eyes: Eyes: Denies change in vision ENT: Denies dizziness Cardiovascular: Cardiovascular: Denies chest pain Respiratory: Respiratory: Denies chest congestion, Denies dyspnea and Denies wheezing Gastrointestinal: Gastrointestinal: Denies constipation, Denies diarrhea, Denies nausea and Denies vomiting Genitourinary: Genitourinary: Denies dysuria Musculoskeletal: Musculoskeletal: Denies back pain and Reports arthralgias Neurologic: Denies dizziness and Denies syncope Endocrine: Endocrine: Reports no additional endocrine complaints Hematologic/Lymphatic: Hematologic/Lymphatic: Reports no additional hematologic/lymphatic complaints [facility] Past Medical History Medical History Allergies LITA positive Arthritis Colitis Fall (on) (from) unspecified stairs and steps, initial encounter (~08/2021) 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 Undifferentiated connective tissue disease (~2017) Vitamin D deficiency Surgical History Surgical History H/O dilation and curettage (~1986) H/O: hysterectomy (~1986) History of appendectomy (~1986) History of carpal tunnel release of both wrists (~1973) History of lumbosacral spine surgery 03/2011 History of oophorectomy (Unknown) Hx of cholecystectomy (Unknown) Hx of repair of right rotator cuff (Unknown) Family History Family History Mother Family history of malignant neoplasm of breast in first degree relative, Onset Age: 70 Family history of arthritis Sibling Family history of arthritis Father Pneumonia Other Carcinoma of colon Diabetes mellitus Family history of cardiovascular disease Family history of malignant neoplasm Social History Social History Smoking status: Never smoker Alcohol intake: former Substance use: never Substance use type: does not use Gender identity (if verbalized by the patient): Female Sexual Orientation (if Verbalized by the Patient): Straight or Heterosexual Spiritual care concerns: No Exam Const: General: healthy appearing, no acute distress and alert Orientation/consciousness: patient oriented x3 HENMT: Head
[2021-10-12 12:59] LABS: Prothrombin Time 12.4 Seconds (11.1-14.7)
[2021-10-12 15:09] LABS: Add Urine Microscopic? YES; Amorphous Sediment Urine Few; Appearance Urine Cloudy (Clear); Bilirubin Urine Negative (Negative); Blood Urine Negative (Negative); Color Urine Yellow (Yellow); Glucose Urine UA Negative (Negative); Ketones Urine Negative (Negative); Leukocyte Esterase Ur Negative LEU/UL (Negative); Nitrate Urine Negative (Negative); Protein Urine Negative (Negative); RBC Urine 0-2 /hpf (0-2); Specific Grav Ur 1.011 (1.001-1.035); Urobilinogen Urine Negative mg/dL (<2.0); WBC Urine 0-3 /hpf
--- NOTE | 2021-10-12 18:00 | PM.IMHP ---
H&P: HPI History of Present Illness Date/Time: 10/12/21 18:00 Chief Complaint: Severe right knee pain. Narrative: This is a very pleasant 81-year-old female with rheumatoid arthritis, systemic lupus erythematosus, osteoporosis, and history of DVT who presented to the emergency department from home for evaluation of right knee pain. She endorses chronic right knee pain and swelling dating back many years due to her rheumatoid arthritis. Several weeks ago she sustained a fall when she slid off of the toilet where she was sitting, with the lid close, attempting to put on compression stockings. She fell forward onto her hands and knees and she was unable to get herself up. Eventually she was able to crawl to her phone and call her daughter who came to help her up. Since that time she has had worsening right knee pain and for about a week or so she was able to gingerly place weight on that right foot while ambulating however these last 2 days she has had severe pain in the right knee and she was unable to bear weight today because of that. X-ray of the knee showed an area suspicious for fracture and a subsequent CT of the right knee showed advanced osteoarthritis in the lateral compartment with remodeling of the lateral tibial plateau accounting for the abnormality seen on prior radiographs. There was however a fracture with mild fragmentation consistent with some sub articular cystic change along the lateral rim of the lateral tibial plateau as well as a moderate-sized knee joint effusion and synovitis. Due to her severe pain she is not able to go home where she lives alone as she is unable to walk, and she is being admitted in this setting. She has minimal, chronic discomfort when resting. She sustained no other injuries in the aforementioned fall however nearly a month ago she had a fall and since that time she has had ongoing pain in her left hip. She saw her patient resource coordinator regarding this a couple of weeks ago and she was referred to an unknown orthopedic surgeon with an upcoming appointment in the next several weeks. Review of Systems Review of Systems: Twelve systems were reviewed. No headache or neck ache. She denies syncope and near syncope. No focal weakness. She has noticed increasing swelling in her lower legs recently and tingling like sensations in both of her feet which she thinks is probably due to a ?nerve issue in my lower back.? She has had discomfort in her left hip for which she was referred to an orthopedic surgeon. She has issues with bunions and she has noticed that her walking is now being affected due to those. She is only on hydroxychloroquine for her rheumatoid arthritis and she has continued to refuse other medications. She ambulates with 2 canes or walker. No chest pain, pleuritic pain, or shortness of breath. Appetite has been fair. No nausea, vomiting, or diarrhea. Except as documented, all other systems were reviewed and are negative. 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 Undifferentiated connective tissue disease (2017) Vitamin D deficiency Surgical History Surgical History (Updated 10/12/21 @ 18:16 by Apurva Jordan PA-C) History of appendectomy (1986) History of carpal tunnel release of both wrists (1973) History of cholecystectomy History of dilatation and curettage (1986) History of hysterectomy (1986) History of lumbosacral spine surgery (03/2011) History of oophorectomy (Unknown) History of repair of right rotator cuff Family History Family History Mother Family history of malignant neoplasm of breast in first degree relative, Onset Age: 70 Famil
--- NOTE | 2021-10-12 18:51 | ADMGEN ---
This patient, Rula Nix, was admitted to Medical Room 343-01. Patient/family oriented to hospital policies and general routines including ID bracelet, bed and alarms, visiting hours, pain management, procedures, bathroom and other care routines, personal items, smoking policy, room service/diet, and visiting hours. Information on how to activate the Rapid Response Team has been discussed. Patient/Family are encouraged to report perceived risks to care and to ask questions if they do not understand what they are told or what they should do.
[2021-10-13 02:27] VITALS: O2SAT 98
[2021-10-13 05:01] LABS: Hematocrit 33.7 % (37.0-47.0); Hemoglobin 10.7 g/dL (12.0-15.0); Mean Corpuscular HGB Conc 31.8 g/dl (32-36); Mean Corpuscular Hemoglobin 28.7 pg (26-34); Mean Corpuscular Volume 90.3 fl (80-100); Mean Platelet Volume 9.5 fl (7.4-10.4); Platelet Count Result 260 k/mm3 (150-375); Red Blood Count 3.73 M/mm3 (4.2-5.4); Red Cell Distribution Width 14.7 % (11.5-14.5); White Blood Count 6.8 K/mm3 (4.5-10.0)
[2021-10-13 05:25] LABS: Anion Gap 2 mmol/L (8-16); Blood Urea Nitrogen 15 mg/dL (7-17); CRP < 0.5 mg/dL (<1.0); Calcium 9.2 mg/dL (8.4-10.2); Carbon Dioxide 28 mmol/L (22-30); Chloride 106 mmol/L (98-107); Estimated Glomerular Filt Rate > 60; Glucose 83 mg/dL (65-110); Magnesium 2.1 mg/dL (1.6-2.3); Potassium 3.4 mmol/L (3.4-5.0); Sodium 136 mmol/L (137-145)
[2021-10-13 05:41] LABS: Erythrocyte Sedimentation Rate 21 mm/hr (0-20)
[2021-10-13 06:00] VITALS: BP 106/47; PULSE 66; RESP 20; TEMP 36.1; O2SAT 98
[2021-10-13] MEDS: HYDROXYCHLOROQUINE SULFATE 200 MG TABLET PO (10:42)
--- NOTE | 2021-10-13 11:42 | PM.IMPN ---
Progress Note: A&P Assessment and Plan (1) Closed fracture of lateral portion of tibial plateau: Code(s): S82.123A - Displaced fracture of lateral condyle of unspecified tibia, initial encounter for closed fracture Status: Acute (2) Right knee pain: Code(s): M25.561 - Pain in right knee Status: Acute (3) Effusion of right knee joint: Code(s): M25.461 - Effusion, right knee Status: Acute (4) Synovitis of right knee: Code(s): M65.9 - Synovitis and tenosynovitis, unspecified Status: Acute (5) Falls frequently: Code(s): R29.6 - Repeated falls Status: Acute (6) Rheumatoid arthritis: Code(s): M06.9 - Rheumatoid arthritis, unspecified Status: Acute (7) Lower extremity edema: Code(s): R60.0 - Localized edema Status: Acute Additional Plan The patient presents today for evaluation of severe right knee pain after sustaining a fall a week and half for so ago. She endorses chronic right knee swelling and pain due to her rheumatoid arthritis however she has never had pain like this before and she is now on able to ambulate due to the pain. CT of the knee showed a fracture with mild fragmentation involving a 1 x 1 cm region of the lateral margin of the left lateral tibial plateau as well as advanced osteoarthritis and moderate size knee joint effusion with synovitis. The patient is being admitted in this setting for PT/OT evaluation and pain control. She may need to do rehab prior to returning home. The ED provider spoke with Dr. Oconnor who was on-call for orthopedics and per her report, he feels this fracture is not acute and she can follow-up with him in the office. No recommendations were listed in the ED provider's notes, unfortunately. Analgesics available as needed. Fall precautions will be initiated. Her home medications will be reviewed and resumed as appropriate. Given her lower extremity edema and history of DVT, will obtain venous Doppler ultrasounds. -venous doppler LLE negative, however R side was not completed. I have added this on. Subjective Date/time seen: 10/13/21 11:42 Interval history: 81-year-old female with rheumatoid arthritis, systemic lupus erythematosus, osteoporosis, and history of DVT, admitted for pain control s/p tibial plateau fracture. Pt states she is doing okay, has no pain at rest. She has not gotten up with therapy yet today. No erythema or warmth. No calf tenderness. No cp/sob. Review of Systems Review of Systems: All systems reviewed & are unremarkable except as noted in HPI and below Exam Narrative: General: Thin, frail elderly female. NAD. Non toxic. Weight: 51.7 kg. BMI: 23.0. HEENT: PERRL. Sclerae anicteric. Oral mucosa moist. Neck: Supple. Respiratory: Lungs are clear to auscultation bilaterally. Cardiovascular: Regular rate and rhythm with S1-S2. Gastrointestinal: Abdomen is soft, nontender, and nondistended with positive bowel sounds. Skin: Warm and dry. No significant rashes. Extremities: No cyanosis or clubbing. She has pitting bilateral lower extremity edema right greater than left. No palpable knots or cords. Negative Khadijah sign bilaterally. Arthritic changes noted of the hands with ulnar deviation. Bunions noted. Radial and pedal pulses palpable. No significant bruising noted. Musculoskeletal: No tenderness to palpation over the hip and pelvis. Mild discomfort with flexion and abduction of the left hip. Right knee is swollen without warmth or tenderness to palpation. She complains of discomfort and there is limited range of motion in that knee secondary to the swelling. There is some tenderness to palpation in the suprapatellar region. Spine: No midline vertebral tenderness. Neurological: Alert and oriented. Cranial nerves 2-12 are grossly intact. No gross focal deficits to casual conversation. Psychiatric: Pleasant and cooperative with normal mood and affect. Judgment and insight intac
[2021-10-13 12:14] VITALS: BP 108/57; PULSE 69; RESP 16; TEMP 36.3; O2SAT 96
[2021-10-13 16:02] VITALS: BP 111/60; PULSE 68; RESP 20; TEMP 36.2; O2SAT 97
[2021-10-13 21:58] VITALS: BP 108/49; PULSE 79; RESP 18; TEMP 37.6; O2SAT 97
[2021-10-14 06:00] VITALS: BP 106/51; PULSE 63; RESP 18; TEMP 36.3; O2SAT 98
[2021-10-14] MEDS: HYDROXYCHLOROQUINE SULFATE 200 MG TABLET PO (09:11)
--- NOTE | 2021-10-14 11:02 | PM.IMPN ---
Progress Note: A&P Assessment and Plan (1) Closed fracture of lateral portion of tibial plateau: Code(s): S82.123A - Displaced fracture of lateral condyle of unspecified tibia, initial encounter for closed fracture Status: Acute (2) Right knee pain: Code(s): M25.561 - Pain in right knee Status: Acute (3) Effusion of right knee joint: Code(s): M25.461 - Effusion, right knee Status: Acute (4) Synovitis of right knee: Code(s): M65.9 - Synovitis and tenosynovitis, unspecified Status: Acute (5) Falls frequently: Code(s): R29.6 - Repeated falls Status: Acute (6) Rheumatoid arthritis: Code(s): M06.9 - Rheumatoid arthritis, unspecified Status: Acute (7) Lower extremity edema: Code(s): R60.0 - Localized edema Status: Acute Additional Plan 10/12/21 The patient presents today for evaluation of severe right knee pain after sustaining a fall a week and half for so ago. She endorses chronic right knee swelling and pain due to her rheumatoid arthritis however she has never had pain like this before and she is now on able to ambulate due to the pain. CT of the knee showed a fracture with mild fragmentation involving a 1 x 1 cm region of the lateral margin of the left lateral tibial plateau as well as advanced osteoarthritis and moderate size knee joint effusion with synovitis. The patient is being admitted in this setting for PT/OT evaluation and pain control. She may need to do rehab prior to returning home. The ED provider spoke with Dr. Oconnor who was on-call for orthopedics and per her report, he feels this fracture is not acute and she can follow-up with him in the office. No recommendations were listed in the ED provider's notes, unfortunately. Analgesics available as needed. Fall precautions will be initiated. Her home medications will be reviewed and resumed as appropriate. Given her lower extremity edema and history of DVT, will obtain venous Doppler ultrasounds. 10/13/21 -venous dopplers bilateral negative 10/14/21 -pt attempting to work with therapy but unable to bear any weight. Requested ortho consult to see if there is anything that can be done prior to her discharging to rehab, steroid/brace/etc? Appreciate any recommendations. Subjective Date/time seen: 10/14/21 11:02 Interval history: 81-year-old female with rheumatoid arthritis, systemic lupus erythematosus, osteoporosis, and history of DVT, admitted for pain control s/p tibial plateau fracture. Pt states she is doing okay, has no pain at rest but cannot bear any weight on it when working with therapy. No erythema or warmth. No calf tenderness. No cp/sob. She has never had a steroid injection or tried a knee brace. Review of Systems Review of Systems: All systems reviewed & are unremarkable except as noted in HPI and below Exam Narrative: General: Thin, frail elderly female. NAD. Non toxic. Weight: 51.7 kg. BMI: 23.0. HEENT: PERRL. Sclerae anicteric. Oral mucosa moist. Neck: Supple. Respiratory: Lungs are clear to auscultation bilaterally. Cardiovascular: Regular rate and rhythm with S1-S2. Gastrointestinal: Abdomen is soft, nontender, and nondistended with positive bowel sounds. Skin: Warm and dry. No significant rashes. Extremities: No cyanosis or clubbing. She has pitting bilateral lower extremity edema right greater than left. No palpable knots or cords. Negative Khadijah sign bilaterally. Arthritic changes noted of the hands with ulnar deviation. Bunions noted. Radial and pedal pulses palpable. No significant bruising noted. Musculoskeletal: No tenderness to palpation over the hip and pelvis. Mild discomfort with flexion and abduction of the left hip. Right knee is moderately swollen without warmth or tenderness to palpation. She complains of discomfort and there is limited range of motion in that knee secondary to the swelling. There is some tenderness to palpation i
[2021-10-14 14:00] VITALS: BP 99/50; PULSE 77; RESP 16; TEMP 37; O2SAT 99
[2021-10-14 19:55] VITALS: O2SAT 96
[2021-10-14 20:13] VITALS: BP 108/51; PULSE 69; RESP 16; TEMP 36.4; O2SAT 97
[2021-10-15 05:22] VITALS: BP 106/50; PULSE 58; RESP 16; TEMP 36.4; O2SAT 98
[2021-10-15] MEDS: HYDROXYCHLOROQUINE SULFATE 200 MG TABLET PO (09:00)
--- NOTE | 2021-10-15 10:10 | PM.IMPN ---
Progress Note: A&P Assessment and Plan (1) Closed fracture of lateral portion of tibial plateau: Code(s): S82.123A - Displaced fracture of lateral condyle of unspecified tibia, initial encounter for closed fracture Status: Acute (2) Right knee pain: Code(s): M25.561 - Pain in right knee Status: Acute (3) Effusion of right knee joint: Code(s): M25.461 - Effusion, right knee Status: Acute (4) Synovitis of right knee: Code(s): M65.9 - Synovitis and tenosynovitis, unspecified Status: Acute (5) Falls frequently: Code(s): R29.6 - Repeated falls Status: Acute (6) Rheumatoid arthritis: Code(s): M06.9 - Rheumatoid arthritis, unspecified Status: Acute (7) Lower extremity edema: Code(s): R60.0 - Localized edema Status: Acute Additional Plan 10/12/21 The patient presents today for evaluation of severe right knee pain after sustaining a fall a week and half for so ago. She endorses chronic right knee swelling and pain due to her rheumatoid arthritis however she has never had pain like this before and she is now on able to ambulate due to the pain. CT of the knee showed a fracture with mild fragmentation involving a 1 x 1 cm region of the lateral margin of the left lateral tibial plateau as well as advanced osteoarthritis and moderate size knee joint effusion with synovitis. The patient is being admitted in this setting for PT/OT evaluation and pain control. She may need to do rehab prior to returning home. The ED provider spoke with Dr. Oconnor who was on-call for orthopedics and per her report, he feels this fracture is not acute and she can follow-up with him in the office. No recommendations were listed in the ED provider's notes, unfortunately. Analgesics available as needed. Fall precautions will be initiated. Her home medications will be reviewed and resumed as appropriate. Given her lower extremity edema and history of DVT, will obtain venous Doppler ultrasounds. 10/13/21 -venous dopplers bilateral negative 10/14/21 -pt attempting to work with therapy but unable to bear any weight. Requested ortho consult to see if there is anything that can be done prior to her discharging to rehab, steroid/brace/etc? Appreciate any recommendations. 10/15/21 -pt still unable to bear any weight. Refusing all interventions from me. Wants to discuss with Dr. Galicia. Will be discharging to rehab facility. Subjective Date/time seen: 10/15/21 10:10 Interval history: 81-year-old female with rheumatoid arthritis, systemic lupus erythematosus, osteoporosis, and history of DVT, admitted for pain control s/p tibial plateau fracture. Pt states she is doing okay, has no pain at rest but cannot bear any weight on it when working with therapy. No erythema or warmth. No calf tenderness. No cp/sob. Pt refuses Tylenol because she states it gives her heartburn. Cannot take NSAIDs due to previous ulcer. Does not want narcotics. Does not want steroids. Does not want cortisone injection. Review of Systems Review of Systems: All systems reviewed & are unremarkable except as noted in HPI and below Exam Narrative: General: Thin, frail elderly female. NAD. Non toxic. Weight: 51.7 kg. BMI: 23.0. HEENT: PERRL. Sclerae anicteric. Oral mucosa moist. Neck: Supple. Respiratory: Lungs are clear to auscultation bilaterally. Cardiovascular: Regular rate and rhythm with S1-S2. Gastrointestinal: Abdomen is soft, nontender, and nondistended with positive bowel sounds. Skin: Warm and dry. No significant rashes. Extremities: No cyanosis or clubbing. She has pitting bilateral lower extremity edema right greater than left. No palpable knots or cords. Negative Khadijah sign bilaterally. Arthritic changes noted of the hands with ulnar deviation. Bunions noted. Radial and pedal pulses palpable. No significant bruising noted. Musculoskeletal: No tenderness to palpation over the h
[2021-10-15 14:29] VITALS: BP 112/55; PULSE 78; RESP 20; TEMP 37; O2SAT 98
--- NOTE | 2021-10-15 14:35 | PM.DS ---
DS: Admitting Diagnosis Discharge Date 10/15/21 Admitting Diagnosis knee pain DS: Discharge Diagnosis Discharge Diagnosis (1) Closed fracture of lateral portion of tibial plateau: Code(s): S82.123A - Displaced fracture of lateral condyle of unspecified tibia, initial encounter for closed fracture Status: Acute Assessment and Plan: 10/12/21 The patient presents today for evaluation of severe right knee pain after sustaining a fall a week and half for so ago. She endorses chronic right knee swelling and pain due to her rheumatoid arthritis however she has never had pain like this before and she is now on able to ambulate due to the pain. CT of the knee showed a fracture with mild fragmentation involving a 1 x 1 cm region of the lateral margin of the left lateral tibial plateau as well as advanced osteoarthritis and moderate size knee joint effusion with synovitis. The patient is being admitted in this setting for PT/OT evaluation and pain control. She may need to do rehab prior to returning home. The ED provider spoke with Dr. Oconnor who was on-call for orthopedics and per her report, he feels this fracture is not acute and she can follow-up with him in the office. No recommendations were listed in the ED provider's notes, unfortunately. Analgesics available as needed. Fall precautions will be initiated. Her home medications will be reviewed and resumed as appropriate. Given her lower extremity edema and history of DVT, will obtain venous Doppler ultrasounds. 10/13/21 -venous dopplers bilateral negative 10/14/21 -pt attempting to work with therapy but unable to bear any weight. Requested ortho consult to see if there is anything that can be done prior to her discharging to rehab, steroid/brace/etc? Appreciate any recommendations. 10/15/21 -pt still unable to bear any weight. Refusing all interventions from me. Seen at bedside by Dr. Galicia who performed aspiration at bedside. He states she is stable to go to rehab at this time. She has scheduled a follow up appt with him. (2) Right knee pain: Code(s): M25.561 - Pain in right knee Status: Acute (3) Effusion of right knee joint: Code(s): M25.461 - Effusion, right knee Status: Acute (4) Synovitis of right knee: Code(s): M65.9 - Synovitis and tenosynovitis, unspecified Status: Acute (5) Falls frequently: Code(s): R29.6 - Repeated falls Status: Acute (6) Rheumatoid arthritis: Code(s): M06.9 - Rheumatoid arthritis, unspecified Status: Acute (7) Lower extremity edema: Code(s): R60.0 - Localized edema Status: Acute DS: Summary Hospital Course Reason for hospitalization: 81-year-old female with rheumatoid arthritis, systemic lupus erythematosus, osteoporosis, and history of DVT, admitted for pain control s/p tibial plateau fracture. Please see HPI for further details. Hospital Course: Please see above for details of hospital course. Time spent discussing smoking cessation with patient: more than 10 minutes Status at Discharge Cognitive/behavioral status at discharge: stable Functional status at discharge: uses cane/walker Overall status at discharge: patient is progressing back to baseline Time Spent with Patient Time attestation: Total time spent providing and/or coordinating discharge services: 32 Time spent: Greater than 30 minutes Exam Narrative: General: Thin, frail elderly female. NAD. Non toxic. Weight: 51.7 kg. BMI: 23.0. HEENT: PERRL. Sclerae anicteric. Oral mucosa moist. Neck: Supple. Respiratory: Lungs are clear to auscultation bilaterally. Cardiovascular: Regular rate and rhythm with S1-S2. Gastrointestinal: Abdomen is soft, nontender, and nondistended with positive bowel sounds. Skin: Warm and dry. No significant rashes. Extremities: No cyanosis or clubbing. She has pitting bilateral lower extremity edema right greater than left. No palpable knots or
--- NOTE | 2021-10-15 16:52 | PM.CNOR ---
Assessment and Plan Assessment and plan (1) Rheumatoid arthritis: Qualifiers: Rheumatoid arthritis location: multiple sites Rheumatoid factor presence: unspecified presence Qualified Code(s): M06.9 - Rheumatoid arthritis, unspecified Code(s): M06.9 - Rheumatoid arthritis, unspecified Status: Acute (2) Right knee DJD: Qualifiers: Osteoarthritis type: other secondary Qualified Code(s): M17.5 - Other unilateral secondary osteoarthritis of knee Code(s): M17.11 - Unilateral primary osteoarthritis, right knee Status: Acute Additional Plan KATY IS HERE FOR SEVERE RIGHT KNEE PAIN. AFTER REVIEWING THE XRAYS AND CT SCAN I DO NOT BELIEVE SHE HAS FORMAL TIBIAL PLATEAU FRACTURE BUT SEVERE DEGENERATION OF THE LATERAL COMPARTMENT DUE TO RA AND LUPUS RESULTING IN A COLLAPSE OF THE LATERAL PLATEAU AND JOINT COMPARTMENT.. RECOMMEND ASPIRATION AND INJECTION. SHE WILL F/U IN MY OFFICE NEEDED. SHE MAY BE WBAT. SHE WILL REQUIRE REHAB AND AGREE WITH PLACEMENT. HISTORY, EXAM AND RADIOGRAPHS REVIEWED WITH THE PATIENT. REFERRING PHYSICIAN RECORDS AND IMAGES REVIEWED. CONDITION, NATURE, ETIOLOGY AND COURSE OF NATURAL HISTORY REVIEWED. CONSERVATIVE AND OPERATIVE TREATMENT OPTIONS REVIEWED WELL THE RISKS AND BENEFITS OF EACH. THE RISKS OF INJECTION WERE REVIEWED INCLUDING BUT NOT LIMITED TO SKIN COLOR CHANGES, ATROPHY OF THE SOFT TISSUE, TENDON OR SOFT TISSUE RUPTURE, JOINT DEGENERATION, HYPER INFLAMMATORY RESPONSE, ALLERGIC REACTION, CONTINUED PAIN OR DYSFUNCTION. SPECIFIC RISKS OF THE PROCEDURE INCLUDING DEEP INFECTION OR SOFT TISSUE RUPTURE OR RECURRENCE OF SYMPTOMS REVIEWED. NO GUARANTEES WERE OFFERED. THE PATIENT UNDERSTANDS THE NEED FOR POSSIBLE FURTHER TREATMENT. History of Present Illness HPI Consult date: 10/15/21 Consult reason: joint pain Chief complaint: RIGHT KNEE PAIN AND SWELLING Narrative: KATY IS HERE FOR EVALUATION OF HER RIGHT KNEE PAIN. THERE WAS SOME QUESTION OF AN INJURY BUT THE PATIENT STATES SHE HAD A MINOR TWISTING OF THE RIGHT KNEE. SHE HAS A LONG HISTORY OF RIGHT KNEE PAIN AND SWELLING FROM RA AND LUPUS. SHE ALSO HAS A LONG HISTORY OF LEFT HIP PAIN. SHE DENIES ANY RECENT FEVER OR CHILLS. Review of Systems Review of Systems: All systems reviewed & are unremarkable except as noted in HPI and below Eyes: Eyes: Reports no additional eye complaints ENT: Reports system reviewed and no additional complaints, except as documented Cardiovascular: Cardiovascular: Reports no additional cardiovascular complaints Respiratory: Respiratory: Reports no additional respiratory complaints Gastrointestinal: Gastrointestinal: Reports no additional gastrointestinal complaints Genitourinary: Genitourinary: Reports no additional female genitourinary complaints Musculoskeletal: Musculoskeletal: Reports no additional musculoskeletal complaints Neurologic: Reports system reviewed and no additional complaints, except as documented [facility] Past Medical History Medical History LITA positive Arthritis Colitis Generalized osteoarthritis of multiple sites Histoplasmosis pneumonia History of deep venous thrombosis Hyperlipidemia LDL goal <100 Osteoporosis (2008) Rheumatoid arthritis Ruptured varicose vein Surgically repaired. Undifferentiated connective tissue disease (2017) Vitamin D deficiency Surgical History Surgical History History of appendectomy (1986) History of carpal tunnel release of both wrists (1973) History of cholecystectomy History of dilatation and curettage (1986) History of hysterectomy (1986) History of lumbosacral spine surgery (03/2011) History of oophorectomy (Unknown) History of repair of right rotator cuff Family History Family History Mother Family history of malignant neoplasm of breast in first d
[2021-10-15 18:01] LABS: EDCOVIDSCREEN Negative (Negative)
== END 2021-10-15 18:30 ==
LOC: ANHED 16:09 → ANH3MED 16:38
PROVIDERS: Emergency Medicine; Physician Assistant; Admitting Provider Internal Medicine; Emergency Provider Nurse Practitioner Family; PCP Family Medicine; Visit Provider Internal Medicine
DX: M06.861 Other specified rheumatoid arthritis, right knee (principal); M17.11 Unilateral primary osteoarthritis, right knee; M32.9 Systemic lupus erythematosus, unspecified; R29.6 Repeated falls; W19.XXXA Unspecified fall, initial encounter; E78.5 Hyperlipidemia, unspecified; E55.9 Vitamin D deficiency, unspecified; M19.90 Unspecified osteoarthritis, unspecified site; M25.552 Pain in left hip; M81.0 Age-related osteoporosis without current pathological fracture; Z90.49 Acquired absence of other specified parts of digestive tract; Z90.710 Acquired absence of both cervix and uterus; Z86.718 Personal history of other venous thrombosis and embolism; Z20.822 Contact with and (suspected) exposure to COVID-19; Z66 Do not resuscitate
CPT/HCPCS: 36415; 71046; 73562; 73700; 80048; 80053; 81001; 83735; 85025; 85027; 85610; 85652; 85730; 86140; 87426; 93005; 93971; 97110; 97161; 97165; 97530; 97535; 99285; A9270; C9803; G0378

== ENCOUNTER 2022-04-29 10:07 | Outpatient (CLI) | payer OTHER, SELFPAY ==
--- NOTE | 2022-04-29 10:13 | ECG_ITS ---
Measurements Intervals [place] Rate: 74 P: 54 DE: 163 QRS: -13 QRSD: 83 T: 46 QT: 378 QTc: 420 Interpretive Statements SINUS RHYTHM LOW QRS VOLTAGE IN PRECORDIAL LEADS [QRS DEFLECTION < 1.0 mV IN CHEST LEADS] OTHERWISE WITHIN NORMAL LIMITS COMPARED TO ECG 10/12/2021 11:26:40 NO SIGNIFICANT CHANGES Electronically Signed On 04-29-2022 13:48:30 CDT by Alber Miller M.D.
[2022-04-29 10:50] LABS: Basophils Absolute Auto 0.1 K/mm3 (0.0-0.1); Basophils Percent Auto 0.6 % (0.2-1.2); Eosinophils Absolute Auto 0.1 K/mm3 (0-0.3); Hematocrit 36.5 % (37.0-47.0); Hemoglobin 11.6 g/dL (12.0-15.0); Immature Granulocyte Absolute 0.02 K/mm3 (0.00-0.031); Immature Granulocyte Percent A 0.2 % (0-0.5); Lymphocytes Absolute Auto 1.51 K/mm3 (0.9-3.2); Lymphocytes Percent Auto 18.5 % (18.3-44.2); Mean Corpuscular HGB Conc 31.8 g/dl (32-36); Mean Corpuscular Hemoglobin 27.7 pg (26-34); Mean Corpuscular Volume 87.1 fl (80-100); Mean Platelet Volume 8.9 fl (7.4-10.4); Monocytes Absolute Auto 0.7 K/mm3 (0.1-0.6); Monocytes Percent Auto 8.8 % (2.6-8.5); Neutrophils Absolute Auto 5.8 K/mm3 (1.3-6.7); Neutrophils Percent Auto 70.9 % (45.5-73.1); Platelet Count Result 322 k/mm3 (150-375); Red Blood Count 4.19 M/mm3 (4.2-5.4); Red Cell Distribution Width 14.9 % (11.5-14.5); White Blood Count 8.2 K/mm3 (4.5-10.0)
[2022-04-29 11:02] LABS: Appearance Urine Clear (Clear); Bilirubin Urine Negative (Negative); Blood Urine 1+ (Negative); Color Urine Light Yellow (Yellow); Glucose Urine UA Negative (Negative); Ketones Urine Negative (Negative); Leukocyte Esterase Ur Negative LEU/UL (Negative); Nitrate Urine Negative (Negative); Protein Urine Negative (Negative); Urobilinogen Urine 0.2 mg/dL (<2.0); pH Urine 6.5 (5.0-9.0)
[2022-04-29 11:11] LABS: Add Urine Microscopic? YES
[2022-04-29 11:19] LABS: Squamous Epithelial Cell Urine Rare /hpf (Few); WBC Urine 0-3 /hpf
[2022-04-29 12:18] LABS: Albumin Level 4.2 g/dL (3.5-5.1); Anion Gap 11 mmol/L (8-16); Blood Urea Nitrogen 18 mg/dL (7-17); Calcium 10.2 mg/dL (8.4-10.2); Carbon Dioxide 28 mmol/L (22-30); Chloride 101 mmol/L (98-107); Estimated Glomerular Filt Rate > 60; Glucose 98 mg/dL (65-110); Potassium 3.8 mmol/L (3.4-5.0); Sodium 140 mmol/L (137-145)
== END 2022-04-29 10:08 | disposition home or self-care (01) ==
PROVIDERS: PCP Family Medicine; Visit Provider Orthopaedic Surgery
DX: M17.11 Unilateral primary osteoarthritis, right knee (principal); M32.9 Systemic lupus erythematosus, unspecified
CPT/HCPCS: 36415; 80048; 81001; 82040; 85025; 93005

== ENCOUNTER 2022-05-25 13:48 | Outpatient (CLI) | payer OTHER, SELFPAY ==
[2022-05-25 16:36] LABS: Prothrombin Time 13.1 Seconds (11.1-14.7)
[2022-05-25 16:37] LABS: Partial Thromboplastin Time 32.3 SECONDS (22.3-36.8)
[2022-05-25 16:51] LABS: Urine Cotinine NEGATIVE
[2022-05-25 17:30] LABS: Hemoglobin A1C 5.7 % (<5.7)
== END 2022-05-25 13:49 | disposition home or self-care (01) ==
LOC: ANHSURGERY 13:53
PROVIDERS: PCP Family Medicine; Visit Provider Orthopaedic Surgery
DX: M17.11 Unilateral primary osteoarthritis, right knee (principal); Z01.818 Encounter for other preprocedural examination
CPT/HCPCS: 80307; 83036; 85610; 85730; 86850; 86900; 86901; 87081

== ENCOUNTER 2022-06-08 14:52 | Observation (INO) | payer OTHER, SELFPAY ==
[2022-05-25 14:03] VITALS: BMI 22.2
--- NOTE | 2022-05-25 15:00 | PC.NURSE ---
Report to the Outpatient Waiting Room, entrance under the green pavilion located off [facility], at time ___0600____ on date _06/07/22 . Planned Procedure Time: _729 . Time changes happen often and if your time is changed the preop area will call you the afternoon before. - You and your visitor will be asked to self-screen and do not enter if you have any COVID symptoms. - We encourage only one visitor and NO visitors under age 16 are allowed at this time. Your visitor will receive communication by the phone number that is given day of service. - The patient visitor is requested to social distance or may leave the building when not with patient due to restrictions. - A mask is required within the hospital. Patients may have clear liquids (water, carbonated beverages, clear teas, apple juice) until 3 hours prior to surgery with a maximum of 20 ounces. - No food from midnight until time of surgery - Infants may have breast milk until 4 hours before surgery, formula 6 hours prior to surgery. - Children will be allowed to drink immediately following surgery. If applicable, please bring a bottle or sippy cup to assist with drinking. Juice, water, soda, and popsicles are readily available. For infants on formula, please bring formula the day of surgery. Pacifiers are allowed. Take the following medications with a SIP of water the morning of surgery: ___NONE Medications to discontinue per physician VITAMIN D 3 DAYS PRE OP Date to take last dose____06/03/22 Please no make-up, nail citizen of [place], hairspray, perfume, deodorant, or body powder the day of surgery. No jewelry (including any body piercings) or valuables the day of surgery, leave them at home. Please take a shower or bath the night before, or the morning of, surgery with an antibacterial soap. Wear comfortable, loose fitting clothing. Children are encouraged to wear pajamas. - Jewelry must be removed prior to entering the operating room. Rings and piercings that are not removed may be cut off. - The hospital will not accept responsibility for valuables. - Please leave all valuables, including medications, at home the day of surgery. If you are going home after surgery, a licensed race car driver must drive you home. - NO public transportation without another adult. - We recommend that an adult stay with you for 24 hours following discharge. - We also recommend that you do not drive, make important decision, drink alcoholic beverages, or take any drugs that were not prescribed by your health care provider for at least 24 hours after your discharge time. For Pediatric surgeries, we recommend two adults accompany the child home. Follow any additional instructions given to you from your surgeon. If you or anyone in your household have experienced Covid symptoms in the past week, please notify your surgeon or the nurse liaison at the phone number below for possible testing. VERBAL AND WRITTEN instructions given to __PATIENT AND DAUGHTER MAGDALENO and asked if any additional questions and then verbalized understanding. Patient advised to call surgeon office or pre surgery nurse liaison [phone] if any additional questions.
[2022-05-25 15:28] VITALS: BP 112/64; PULSE 73; RESP 18; TEMP 36.7; O2SAT 100
--- NOTE | 2022-06-06 14:15 | WPDANESEPPF ---
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 Patient Data Age: 81 Gender: F Height: 1.51 m Weight: 50.8 kg Last Vital Signs Temp 36.7 C 05/25/22 15:28 Pulse 73 05/25/22 15:28 Resp 18 05/25/22 15:28 BP 112/64 05/25/22 15:28 Pulse Ox 100 05/25/22 15:28 O2 Del Method Room Air 05/25/22 15:28 Allergies Allergy/AdvReac Type Severity Reaction Status Date / Time alendronate sodium Allergy Severe Severe Verified 06/07/22 06:36 joint pain wheat Allergy Mild Abdominal Verified 06/07/22 06:36 Pain acetaminophen [From Tylenol] AdvReac Mild Gastrointestinal Verified 06/07/22 06:36 Upset Topical E Allergy Intermediate Blister Uncoded 06/07/22 06:36 Home Medications Medication Instructions Recorded Confirmed Type cholecalciferol (vitamin D3) 25 75 mcg PO DAILY #270 caps 12/29/21 06/07/22 Rx mcg (1,000 unit) capsule hydroxychloroquine 200 mg tablet See Rx Instructions .Route 05/18/22 06/07/22 Rx .COMPLEX #90 tabs Patient hx anesthesia problems: none Family hx anesthesia problems: none Results Review: All pre-operative results and documents have been reviewed as part of the pre-operative evaluation. [facility] Past Medical History Medical History LITA positive Arthritis Colitis Generalized osteoarthritis of multiple sites Histoplasmosis pneumonia History of deep venous thrombosis History of lupus History of pulmonary embolism Hyperlipidemia LDL goal <100 Osteoporosis (2009) Rheumatoid arthritis Ruptured varicose vein Surgically repaired. Undifferentiated connective tissue disease (2018) Vitamin D deficiency Surgical History Surgical History History of appendectomy (1986) History of carpal tunnel release of both wrists (1973) History of cholecystectomy History of dilatation and curettage (Unknown) Approx '[address] Orellana and Dr. Edward repectively. History of foot surgery Vein in R foot, approx 2019, Dr. Esparza History of hysterectomy (1986) History of lumbosacral spine surgery (03/2011) History of oophorectomy (Unknown) History of repair of right rotator cuff (~1990) Family History Family History Mother Family history of malignant neoplasm of breast in first degree relative, Onset Age: 70 Family history of arthritis Sibling Family history of arthritis Acute myocardial infarction Father Pneumonia Other Carcinoma of colon Diabetes mellitus Family history of cardiovascular disease Family history of malignant neoplasm Heart disease Social History Social History Social History: Surrogate decision maker: Veronica Baig or Bella Estuardo, rachel. Code status: Do not resuscitate. Smoking status: Never smoker Additional smoking assessment comments: DENIES ANY FORM OF TOBACCO USE Alcohol intake: never Substance use: never Substance use type: does not use Living arrangements: alone Gender identity (if verbalized by the patient): Female Spiritual care concerns: No Anes - Eval Final PreProcedure Day of Procedure 06/06/22 14:15 Patient weight: normal Heart: regular rate and rhythm Lungs: clear to auscultation and normal air movement Airway: Mallampati scale class II Neurological: alert and oriented Last oral intake: >/= 8 hours ASA classification: III Emergent: no Anesthetic plan: proceed Anesthesia type and monitoring: general LMA and standard monitoring Results Review: All pre-operative results and documents have been reviewed as part of the pre-operative evaluation. Informed Consent: The patie
--- NOTE | 2022-06-06 14:16 | WPDANESPNB ---
Anes - Peripheral Nerve Block Date/Time: 06/06/22 14:16 I have discussed with the patient/family/POA the placement of a peripheral nerve block for post-operative pain management, including associated risks, benefits, complications, and side effects. Alternative methods of post-operative analgesia were detailed. Questions were solicited and answers provided to the satisfaction of the patient/family/POA. Time-Out: A pre-procedural Time-Out was completed immediately before starting the procedure and confirmed: Patient Identification, Site, Procedure, Patient Position and the Availability of Requisite Equipment. Clinical Indications: Acute post-operative pain management requested by the operative surgeon. Nerve Block Insertion Note Anes-nerve block: adductor canal right Patient position: supine Skin prep: chlorhexidine Needle: 22 gauge, stimulating, insulated echogenic needle. Needle length: 80 mm Technique: ultrasound Technique comment: in plane Injectate: bupivacaine 0.25% with epi 5 mcg/ml (30cc) Observations: tolerated well Complications: none Procedure start time:: 725 Procedure end time:: 730
[2022-06-07] VITALS (12 sets, daily range): BP systolic 98–143; BP diastolic 49–80; PULSE 68–81; RESP 10–17; TEMP 36.2–36.9; O2SAT 93–100
[2022-06-07] MEDS: LACTATED RINGERS 1,000 ML 30 ML IV CONT ×2 (06:48→10:53)
--- NOTE | 2022-06-07 06:50 | SUR.PREOP ---
0605 pt states fell at home onto left side, denies injury. no bruising noted to left shoulder or hip. pt has allergy to tylenol and not given this am per order set,dr tony aware.
[2022-06-07] MEDS: TRANEXAMIC ACID 1,000MG/ISO100 1,000 MG/100 ML BAG 200 MG IVPB (07:11)
--- NOTE | 2022-06-07 07:17 | WPDHPUPDATE1 ---
History and Physical Update Update Date/Time: 06/07/22 07:17 History and Physical has been reviewed, including an updated exam of the patient. There are NO changes in the patient's condition. Risks, benefits, and alternatives have been discussed and questions answered. Patient agrees to proceed with procedure.
[2022-06-07] MEDS: ceFAZolin 2 GM/D5W 50 ML 2 GM/50 ML BAG IVPB ×3 (07:36→22:44)
[2022-06-07] MEDS: GENTAMICIN BONE CEMENT REFOBACIN 1 EACH TOPICAL (09:26)
[2022-06-07] MEDS: TRANEXAMIC ACID 1,000 MG/10 ML AMPUL 1000 MG IV PUSH (10:12)
--- NOTE | 2022-06-07 11:04 | P.OP_ITS ---
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 THERE WAS A 25 DE GREE FLEXION CONTRACTURE AND SEVERE VALGUS DEFORMITY. A MIDLINE SKIN INCISION WAS MADE. A MEDIAL PARAPATELLAR ARTHROTOMY WAS MADE. THE PATELLA WAS EVERTED. THERE WAS TRICOMPARTMENT DJD. AN INTRAMEDULLARY RUSSELL WAS PLACED IN THE FEMUR. A DISTAL FEMORAL CUT WAS MADE IN 5 DEGREES OF VALGUS REMOVING APPROXIMATELY 12 MM OF BONE FROM THE DISTAL FEMUR. THE FEMUR WAS SIZED TO 60. A 6O FEMORAL CUTTING BLOCK WAS PLACED IN ALIGNMENT WITH ERIN'S LINE AND THE TRANSEPICONDYLAR AXIS. ANTERIOR POSTERIOR AND CHAMFER CUTS WERE MADE. THE CUTS WERE EXCELLENT. NEXT AN INTRAMEDULLARY CUTTING GUIDE WAS PLACED IN THE TIBIA. A TRANS TIBIAL CUT WAS MADE ALONG THE LONG AXIS OF THE TIBIA. APPROXIMATELY 10 MM OF BONE WAS REMOVED FROM THE HIGH SIDE OF THE TIBIA. THE TIBIA WAS THEN PLANED TO A SMOOTH SURFACE. POSTERIOR FEMORAL OSTEOPHYTES WERE REMOVED FROM THE FEMORAL CONDYLES. A PUNCH AND REAMER WERE USED TO ACCOMMODATE AN 8 MM STEM FOR A 63 TIBIAL TRIAL WHICH WAS THEN PLACED IN ALIGNMENT WITH THE 1/3 MEDIAL ASPECT OF THE TIBIAL TUBERCLE. A 6O FEMORAL TRIAL/CUTTING BLOCK WAS THEN PLACED TO MAKE A FEMORAL BOX CUT. REAMERS FOR A 120/11 MM FEMORAL STEM WAS PREFORMED. FEMORAL TRIAL WITH STEM WAS PLACED. THE FIT WAS EXCELLENT. A 10 MM PS PLUS POLY TRIAL WAS PLACED AND THE KNEE WAS TAKEN THROUGH A RANGE OF MOTION. THE KNEE CAME OUT TO FULL EXTENSION. THERE WAS NO ABNORMAL TILT TO THE PATELLA. THERE WAS GOOD A/P AND VARUS/VALGUS STABILITY. THERE WAS NO EXCESSIVE ROLL BACK WITH FLEXION. THE TRIAL COMPONENTS WERE REMOVED. THEN A 6O FEMORAL COMPONENT WITH A 120/11 MM STEM AND 63 TIBIAL COMPONENT WITH AN 8 MM STEM WITH A 10 PS PLUS POLY WERE CEMENTED INTO PLACE. ONCE THE CEMENT WAS HARD THE KNEE WAS TAKEN THROUGH A ROM AGAIN AND FOUND TO BE STABLE WITH NO PATELLA TILT NO EXCESSIVE ROLL BACK WITH FLEXION AND GOOD STABILITY WITH COMPLETE AND FULL EXTENSION. THE KNEE WAS IRRIGATED WITH STERILE BETADINE AND WATER FOR ABOUT 3 MINUTES. THE BLEEDERS WERE CAUTERIZED. THE ARTHROTOMY WAS REPAIRED WITH NUMBER 1 VICRYL. THE SUB CUTANEOUS LAYER WITH 2-0 VICRYL AND THE SKIN WITH VIC. THE WOUND WAS WASHED AND A STERILE DRESSING WAS APPLIED. PATIENT WAS EXTUBATED. Estimated Blood Loss -150.0 Pathology None sent Complications No immediate complications Condition Stable Disposition PACU
--- NOTE | 2022-06-07 12:10 | ADMGEN ---
This patient, Rula Nix, was admitted to 2 Medical Room 259-01. Patient/family oriented to hospital policies and general routines including ID bracelet, bed and alarms, visiting hours, pain management, procedures, bathroom and other care routines, personal items, smoking policy, room service/diet, and visiting hours. Information on how to activate the Rapid Response Team has been discussed. Patient/Family are encouraged to report perceived risks to care and to ask questions if they do not understand what they are told or what they should do.
[2022-06-07] MEDS: SODIUM CHLORIDE 0.9% IV 1,000 ML 125 ML IV CONT (12:45)
[2022-06-07] MEDS: CELECOXIB 200 MG CAPSULE PO (16:57)
[2022-06-07] MEDS: SENNA/DOCUSATE SODIUM TABLET 2 TAB PO (16:57)
[2022-06-07] MEDS: ASPIRIN 325 MG ENTERIC TABLET PO (20:45)
[2022-06-07] MEDS: FAMOTIDINE 20 MG TABLET PO (20:45)
[2022-06-07] MEDS: oxyCODONE/ACETAMINOPHEN (*CRX) 5-325 MG TABLET 2 TABLET PO (22:41)
[2022-06-08] VITALS (7 sets, daily range): BP systolic 88–131; BP diastolic 38–81; PULSE 67–79; RESP 16; TEMP 37.1–37.3; O2SAT 95–98; BMI 21.5
--- NOTE | ~2022-06-08 | XR_ITS ---
EXAMINATION: XR knee RT 2V DATE: 06/07/2022 11:14 INDICATION: Total right knee arthroplasty. Postop. TECHNIQUE: 2 views of right knee were obtained. COMPARISON: Right knee radiographs 04/29/2022 FINDINGS: There is a total right knee arthroplasty without patellar resurfacing in near-anatomic alig nment. No fracture. There is gas in the knee joint and soft tissues, consistent with recent surgery. Anterior skin carly are noted. IMPRESSION: 1. Total right knee arthroplasty in near-anatomic alignment. Reviewed, dictated and finalized at location A. PITTER
[2022-06-08] MEDS: diazePAM (*CRX) 5 MG TABLET PO (00:33)
[2022-06-08] MEDS: oxyCODONE/ACETAMINOPHEN (*CRX) 5-325 MG TABLET 2 TABLET PO (04:37)
[2022-06-08 05:26] LABS: Anion Gap 7 mmol/L (8-16); Blood Urea Nitrogen 13 mg/dL (7-17); Calcium 8.9 mg/dL (8.4-10.2); Carbon Dioxide 28 mmol/L (22-30); Chloride 101 mmol/L (98-107); Estimated Glomerular Filt Rate > 60; Glucose 116 mg/dL (65-110); Sodium 136 mmol/L (137-145)
[2022-06-08 05:32] LABS: Basophils Percent Auto 0.2 % (0.2-1.2); Eosinophils Percent Auto 0.1 % (0-4.4); Hematocrit 28.5 % (37.0-47.0); Hemoglobin 8.9 g/dL (12.0-15.0); Immature Granulocyte Absolute 0.03 K/mm3 (0.00-0.031); Immature Granulocyte Percent A 0.3 % (0-0.5); Lymphocytes Absolute Auto 1.87 K/mm3 (0.9-3.2); Lymphocytes Percent Auto 20.6 % (18.3-44.2); Mean Corpuscular HGB Conc 31.2 g/dl (32-36); Mean Corpuscular Hemoglobin 27.9 pg (26-34); Mean Corpuscular Volume 89.3 fl (80-100); Mean Platelet Volume 9.3 fl (7.4-10.4); Monocytes Percent Auto 10.6 % (2.6-8.5); Neutrophils Absolute Auto 6.2 K/mm3 (1.3-6.7); Neutrophils Percent Auto 68.2 % (45.5-73.1); Platelet Count Result 251 k/mm3 (150-375); Red Blood Count 3.19 M/mm3 (4.2-5.4); Red Cell Distribution Width 14.6 % (11.5-14.5); White Blood Count 9.1 K/mm3 (4.5-10.0)
[2022-06-08] MEDS: ceFAZolin 2 GM/D5W 50 ML 2 GM/50 ML BAG IVPB (07:26)
--- NOTE | 2022-06-08 08:38 | PCPTNOTE ---
Attempted to see patient for PT at this time, however patient was working with OT.
[2022-06-08] MEDS: FAMOTIDINE 20 MG TABLET PO ×2 (09:25→20:38)
[2022-06-08] MEDS: SENNA/DOCUSATE SODIUM TABLET 2 TAB PO ×2 (09:25→17:00)
[2022-06-08] MEDS: CELECOXIB 200 MG CAPSULE PO ×2 (09:26→17:01)
[2022-06-08] MEDS: ASPIRIN 325 MG ENTERIC TABLET PO ×2 (09:26→20:38)
[2022-06-08] MEDS: polyethylene glycoL 3350 17 GM POWD.PACK PO (09:27)
[2022-06-08] MEDS: CHOLECALCIFEROL 1,000 UNITS TABLET 3000 UNITS PO (10:21)
--- NOTE | 2022-06-08 12:55 | P.PNAN_ITS ---
Anes - Prog Note Post-Op Date/Time: 06/08/22 12:55 Cardiovascular status: normal Respiratory status: normal Airway patency: baseline Mental status: baseline Post-Op hydration status: normal Vital Signs: Last Vital Signs Temp 37.1 C 06/08/22 10:23 Pulse 68 06/08/22 10:23 Resp 16 06/08/22 10:23 BP 103/44 L 06/08/22 10:23 Pulse Ox 96 06/08/22 10:23 O2 Del Method Room Air 06/08/22 09:20 O2 Flow Rate 8 06/07/22 11:30 Pain Score (VAS): 2 I/O: Intake & Output 06/07/22 06/08/22 06/08/22 23:59 07:59 15:59 Intake Total 392 250 240 Output Total 650 400 Balance -258 -150 240 Laboratory Tests 06/08/22 04:59 06/08/22 04:59 06/08/22 06/08/22 04:59 04:59 WBC 9.1 RBC 3.19 L Hgb 8.9 L Hct 28.5 L MCV 89.3 MCH 27.9 MCHC 31.2 L RDW 14.6 H Plt Count 251 MPV 9.3 Immature Gran % (Auto) 0.3 Neut % (Auto) 68.2 Lymph % (Auto) 20.6 [place] % (Auto) 10.6 H Eos % (Auto) 0.1 Baso % (Auto) 0.2 Lymph # (Auto) 1.87 [place] # (Auto) 1.0 H Eos # (Auto) 0.0 Baso # (Auto) 0.0 Abs Immat Gran (auto) 0.03 Absolute Neuts (auto) 6.2 Absolute Nucleated RBC 0.0 Nucleated RBC % 0.0 Sodium 136 L Potassium 4.0 Chloride 101 Carbon Dioxide 28 Anion Gap 7 L BUN 13 D Creatinine 0.70 Estim Creat Clear Calc Not Reportable Estimated GFR > 60 Glucose 116 H Calcium 8.9 Post-procedural complaints: none Patient Feedback: Patient satisfied with anesthetic care.
--- NOTE | 2022-06-08 16:17 | PM.PNORT ---
Progress Note: A&P Assessment and Plan (1) S/P total knee arthroplasty: Code(s): Z96.659 - Presence of unspecified artificial knee joint Status: Acute Assessment and Plan: POD 1 DOING WELL. SHE WILL CONTINUE PT NAD WE WILL OBSERVE HER OVERNIGHT FOR ANY OTHER BLOOD PRESSURE PROBLEMS. Subjective Subjective Date/Time Seen: 06/08/22 16:17 POD 1 DOING WELL. PRESSURES ARE MILDLY LABILE STILL. SHE HAS NO SOB OR CHEST PAIN. NO CALF PAIN Exam Extrem: Other: VSS AFEBRILE DRESSING DRY NV INTACT NEG HOMANS SIGN CALF SOFT PREVENA IN PLACE WORKING WELL Objective Data Vital Signs Vital Signs: Vital Signs - 24 hr 06/07/22 17:53 06/07/22 21:45 06/08/22 02:00 Temperature 36.5 C 36.9 C 37.2 C Pulse Rate 75 68 77 Respiratory Rate 16 16 16 Blood Pressure 110/52 L 100/80 131/81 Pulse Oximetry 98 93 95 Oxygen Delivery 06/08/22 06:34 06/08/22 10:23 06/08/22 09:20 Temperature 37.1 C 37.1 C Pulse Rate 73 68 Respiratory Rate 16 16 Blood Pressure 105/60 103/44 L Pulse Oximetry 97 96 Oxygen Delivery Room Air 06/08/22 14:00 Temperature 37.3 C Pulse Rate 67 Respiratory Rate 16 Blood Pressure 88/46 L Pulse Oximetry 98 Oxygen Delivery Intake/Output Intake/Output: Intake & Output 06/05/22 06/06/22 06/07/22 06/08/22 23:59 23:59 23:59 23:59 Intake Total 1592 490 Output Total 650 400 Balance 942 90 Meds/Results Medications: Active Medications Generic Name Dose Route Start Last Admin Trade Name Freq PRN Reason Stop Dose Admin Acetaminophen 1,000 mg 06/07/22 12:08 Acetaminophen 500 Mg Tablet PO Q6H PRN Pain Rated 1-3 Aspirin 325 mg 06/07/22 21:00 06/08/22 09:26 Aspirin 325 Mg Enteric Tablet PO 325 mg Q12HR TONY Administration Celecoxib 200 mg 06/07/22 17:00 06/08/22 09:26 Celecoxib 200 Mg Capsule PO 200 mg BIDWM TONY Administration Diazepam 5 mg 06/07/22 12:08 06/08/22 00:33 Diazepam (*Crx) 5 Mg Tablet PO 5 mg Q8H PRN Administration Spasms Diphenhydramine HCl 25 mg 06/07/22 12:08 Diphenhydramine Hcl Inj 50 Mg/Ml Vial IV PUSH Q6H PRN Itching Famotidine 20 mg 06/07/22 21:00 06/08/22 09:25 Famotidine 20 Mg Tablet PO 20 mg Q12HR TONY Administration Magnesium Hydroxide 30 ml 06/07/22 12:08 Magnesium Hydroxide Susp 30 Ml Udc PO BID PRN Constipation Naloxone HCl 0.1 mg 06/07/22 12:08 Naloxone Hcl 0.4 Mg/Ml Vial IV PUSH Q2M PRN Opiate Reversal Ondansetron HCl 4 mg 06/07/22 12:08 Ondansetron Inj 4 Mg/2 Ml Vial IV PUSH Q4H PRN Nausea And Vomiting Oxycodone/Acetaminophen 1 tablet 06/07/22 12:08 Oxycodone/Acetaminophen (*Crx) 5-325 Mg Tablet PO Q4H PRN Pain Rated 4-6 Oxycodone/Acetaminophen 2 tablet 06/07/22 12:08 06/08/22 04:37 Oxycodone/Acetaminophen (*Crx) 5-325 Mg Tablet PO 2 tablet Q6H PRN Administration Pain Rated 7-10 Polyethylene Glycol 17 gm 06/08/22 09:00 06/08/22 09:27 Polyethylene Glycol 3350 17 Gm Powd.Pack PO 17 gm QAM TONY Administration Senna/Docusate Sodium 2 tab 06/07/22 17:00 06/08/22 09:25 Senna/Docusate Sodium Tablet PO 2 tab BID TONY Administration Vitamin D 3,000 units 06/08/22 09:00 06/08/22 10:21 Cholecalciferol 1,000 Units Tablet PO 3,000 units DAILY TONY Administration Radiology Results: ITS Impressions Knee X-Ray 06/07/22 11:16 IMPRESSION: 1. Total right knee arthroplasty in near-anatomic alignment. Labs Labs: Laboratory Results - last 24 hr 06/08/22 06/08/22 04:59 04:59 WBC 9.1 RBC 3.19 L Hgb 8.9 L Hct 28.5 L MCV 89.3 MCH 27.9 MCHC 31.2 L RDW 14.6 H Plt Count 251 MPV 9.3 Immature Gran % (Auto) 0.3 Neut % (Auto) 68.2 Lymph % (Auto) 20.6 [place] % (Auto) 10.6 H Eos % (Auto) 0.1 Baso % (Auto) 0.2 Lymph # (Auto) 1.87 [place] # (Auto) 1.0 H Eos # (Auto) 0.0 Baso # (Auto) 0.0 Abs Immat Gra
[2022-06-09 01:27] VITALS: BP 100/51; PULSE 72; RESP 14; TEMP 37.1; O2SAT 98
[2022-06-09 06:28] VITALS: BP 133/60; PULSE 70; RESP 14; TEMP 36.9; O2SAT 99
[2022-06-09] MEDS: CHOLECALCIFEROL 1,000 UNITS TABLET 3000 UNITS PO (08:29)
[2022-06-09] MEDS: polyethylene glycoL 3350 17 GM POWD.PACK PO (08:30)
[2022-06-09] MEDS: FAMOTIDINE 20 MG TABLET PO (08:30)
[2022-06-09] MEDS: ASPIRIN 325 MG ENTERIC TABLET PO (08:30)
[2022-06-09] MEDS: CELECOXIB 200 MG CAPSULE PO (08:30)
[2022-06-09] MEDS: SENNA/DOCUSATE SODIUM TABLET 2 TAB PO (08:30)
[2022-06-09] MEDS: oxyCODONE/ACETAMINOPHEN (*CRX) 5-325 MG TABLET 1 TABLET PO (08:32)
[2022-06-09 10:00] VITALS: BP 92/46; PULSE 82; RESP 16; TEMP 36.8; O2SAT 100
--- NOTE | 2022-06-09 10:28 | PM.PNORT ---
Progress Note: A&P Assessment and Plan (1) S/P total knee arthroplasty: Code(s): Z96.659 - Presence of unspecified artificial knee joint Status: Acute Assessment and Plan: POD #2 : Right TKA Continue PT/OT. WBAT. Walker. HIGH FALL RISK. Continue pain control. Ice knee. Protect skin. DVT prophylaxis with Aspirin. SCDs. Incentive Spirometry Use reviewed. Monitor Prevena dressing and output. Plan to keep in place x14 days. Bowel Regimen. Dispo: [facility] vs. SNF Plan Reviewed labs, assessment and current plan of care with Dr. Pittman. No further recommendations at this time. Subjective Subjective Date/Time Seen: 06/09/22 10:28 Post Op day: 2 (Right TKA ) Interval history: POD #2: Right TKA Patient doing well. Some increase in pain today and intermittent muscle spasms. Review of Systems Review of Systems: All systems reviewed & are unremarkable except as noted in HPI and below Constitutional: Constitutional: Denies fever(s) and Denies headache(s) ENT: Denies headache(s) Cardiovascular: Cardiovascular: Denies chest pain, Denies diaphoresis, Denies palpitations and Denies dyspnea Respiratory: Respiratory: Denies dyspnea Gastrointestinal: Gastrointestinal: Denies abdominal pain, Denies constipation, Denies nausea and Denies vomiting Genitourinary: Genitourinary: Reports nocturia and Denies dysuria Musculoskeletal: Musculoskeletal: Reports arthralgias (Right Knee ) and Reports joint swelling (Right Knee ) Neurologic: Denies headache(s) Endocrine: Endocrine: Denies palpitations Exam Const: General: comfortable and no acute distress Resp: Effort & Inspection: normal respiratory effort Cardio: Rate: regular rate Rhythm: regular rhythm GI: GI Palp: Yes Soft to palpation, No Tenderness to palpation present (GI) and No Guarding due to palpation present (GI) Skin: General skin exam: wounds noted Wounds: wounds noted Other: Incision c/d/i. No surrounding redness/warmth. No hematoma. Mild ecchymosis. No wound dehiscence Neuro: Cognition (Neuro): normal cognition Other: NV intact aside from block. Moves toes. Sensation intact to light touch. +ankle dorsiflexion/plantarflexion. Extrem: Right lower extremity: normal to inspection, knee Details: tenderness (diffuse, mild ) Location: of the patella, swelling (diffuse, consistent with surgical intervention ), abnormal ROM Details: pain with active ROM during, pain with passive ROM during and with range as follows (limited due to recent surgical intervention ); able to extend lower leg actively and ecchymosis (mild ), lower leg (Negative Khadijah's Sign ) Details: normal to inspection; no erythema and no tenderness, ankle (+ankle dorsiflexion/plantarflexion ) Details: normal to inspection, no edema and normal ROM; no tenderness, no swelling and no ecchymosis and foot Details: normal capillary refill, normal to inspection, vascular exam Details: dorsalis pedis pulse present and motor-sensory exam Details: light-touch normal; no tenderness Left lower extremity: normal to inspection Psych: Mental Status: mental status grossly normal Objective Data Vital Signs Vital Signs: Vital Signs - 24 hr 06/08/22 14:00 06/08/22 18:26 06/08/22 20:26 Temperature 37.3 C 37.2 C 37.1 C Pulse Rate 67 79 73 Respiratory Rate 16 16 16 Blood Pressure 88/46 L 88/38 L 100/56 L Pulse Oximetry 98 95 98 Oxygen Delivery 06/08/22 20:00 06/09/22 01:27 06/09/22 06:28 Temperature 37.1 C 36.9 C Pulse Rate 73 72 70 Respiratory Rate 16 14 14 Blood Pressure 100/51 L 133/60 Pulse Oximetry 98 98 99 Oxygen Delivery Room Air 06/09/22 08:30 Temperature Pulse Rate Respiratory Rate Blood Pressure Pulse Oximetry Oxygen Delivery Room Air Intake/Output Intake/Output: Intake & Output 06/06/22 06/07/22 06/08/22 06/09/22 23:59 23:59 23:59 23:59 Intake Total 1592 1130 350 Output Total 650 1300 700 Balance 942 170 350 Meds/Results Medic
--- NOTE | 2022-06-09 13:17 | PM.DS ---
DS: Admitting Diagnosis Discharge Date 06/09/22 Admitting Diagnosis Right knee DJD DS: Discharge Diagnosis Discharge Diagnosis (1) S/P total knee arthroplasty: Code(s): Z96.659 - Presence of unspecified artificial knee joint Status: Acute Assessment and Plan: POD #2 : Right TKA Continue PT/OT. WBAT. Walker. HIGH FALL RISK. Continue pain control. Ice knee. Protect skin. DVT prophylaxis with Aspirin. SCDs. Incentive Spirometry Use reviewed. Monitor Prevena dressing and output. Plan to keep in place x14 days. Bowel Regimen. Dispo: [facility] vs. SNF Plan Reviewed labs, assessment and current plan of care with Dr. Pittman. No further recommendations at this time. DS: Summary Hospital Course Reason for hospitalization: right TKA Hospital Course: 81 year old female admitted s/p Right TKA for postoperative medical management, paint control and mobilization with PT/OT. Patient progressed well with PT/OT on POD #1. Due to low BP, patient was held overnight. Improvement in BP on POD #2. Still with some hypotension which is asymptomatic. HgB/Hct Stable. Pain stable throughout. She has been cleared to be discharged home with home health at this time. Follow up planned for 3 weeks in the outpatient orthopedic clinic with Dr. Pittman. Status at Discharge Functional status at discharge: uses cane/walker Overall status at discharge: patient is progressing back to baseline Time Spent with Patient Time attestation: Total time spent providing and/or coordinating discharge services: Time spent: Less than 30 minutes Exam Const: General: comfortable and no acute distress Resp: Effort & Inspection: normal respiratory effort Cardio: Rate: regular rate Rhythm: regular rhythm Skin: General skin exam: wounds noted Wounds: wounds noted Other: Incision c/d/i. No surrounding redness/warmth. No hematoma. Mild ecchymosis. No wound dehiscence Neuro: Cognition (Neuro): normal cognition Other: NV intact aside from block. Moves toes. Sensation intact to light touch. +ankle dorsiflexion/plantarflexion. Extrem: Right lower extremity: normal to inspection, knee Details: tenderness (diffuse, mild ) Location: of the patella, swelling (diffuse, consistent with surgical intervention ), abnormal ROM Details: pain with active ROM during, pain with passive ROM during and with range as follows (limited due to recent surgical intervention ); able to extend lower leg actively and ecchymosis (mild ), lower leg (Negative Khadijah's Sign ) Details: normal to inspection; no erythema and no tenderness, ankle (+ankle dorsiflexion/plantarflexion ) Details: normal to inspection, no edema and normal ROM; no tenderness, no swelling and no ecchymosis and foot Details: normal capillary refill, normal to inspection, vascular exam Details: dorsalis pedis pulse present and motor-sensory exam Details: light-touch normal; no tenderness Left lower extremity: normal to inspection Other: VSS AFEBRILE DRESSING DRY NV INTACT NEG HOMANS SIGN CALF SOFT PREVENA IN PLACE WORKING WELL Psych: Mental Status: mental status grossly normal Discharge Plan Discharge Attending physician on discharge: Vincent Pittman Discharging Clinician: Amirah Snyder Patient Disposition: SNF Activity: may shower and follow weight bearing status Diet: as tolerated Wound Care Instructions: follow printed instructions Discharge Instructions: Post Op Total Knee Replacement Instructions Dr. Vincent Pittman [phone] operate machinery until you are released by Dr. Pittman. Do not walk without a walker for any reason until you are released by Dr. Pittman. Continue to use your ice machine. Please use a towel or pillow case to protect your skin before applying your ice machine. Do NOT place a pillow under your knee. You may use a pillow from the calf down if needed. This will prevent a flexion contracture postoperatively. You may begin use of your C
[2022-06-09 13:55] VITALS: BP 85/37; PULSE 73; RESP 16; TEMP 36.6; O2SAT 98
[2022-06-09 14:01] VITALS: BP 90/40
== END 2022-06-09 16:01 ==
PROVIDERS: Admitting Provider Orthopaedic Surgery; PCP Family Medicine; Visit Provider Orthopaedic Surgery
PROC: (CPT 27447; principal; 2022-06-07 07:30)
DX: M25.561 Pain in right knee (principal); M21.061 Valgus deformity, not elsewhere classified, right knee; L29.0 Pruritus ani; M06.9 Rheumatoid arthritis, unspecified; M17.11 Unilateral primary osteoarthritis, right knee; G89.18 Other acute postprocedural pain; Z86.718 Personal history of other venous thrombosis and embolism; M81.0 Age-related osteoporosis without current pathological fracture; E78.5 Hyperlipidemia, unspecified; Z82.61 Family history of arthritis
CPT/HCPCS: 27447; 64447; 36415; 73560; 80048; 80307; 83036; 85025; 85610; 85730; 86850; 86900; 86901; 87081; 97110; 97116; 97161; 97165; 97530; 97535; A9270; C1713; C1776; G0378; J0171; J0690; J1100; J1170; J1885; J2250; J2270; J2405; J2704; J2795; J3010; J7030; J7120

== ENCOUNTER 2022-07-03 12:24 | Emergency (ER) | payer OTHER, SELFPAY ==
[2022-07-03 12:44] VITALS: BP 120/63; PULSE 72; RESP 16; TEMP 36.9; O2SAT 100
[2022-07-03 14:03] VITALS: BP 123/93; PULSE 83; RESP 18; O2SAT 99
--- NOTE | 2022-07-03 14:17 | ED.NAVMDI ---
HPI - Nausea/Vomiting/Diarrhea General Chief complaint: Nausea/Vomiting/Diarrhea Stated complaint: DIARRHEA 06/23 OCCASIONAL NAUSEA Time Seen by Provider: 07/03/22 14:00 History of Present Illness HPI Narrative: This is an 81-year-old female with past medical history of lupus, ulcerative colitis on hydroxychloroquine, who presents to the emergency department complaining of loose stools for the past 10 days. She states she has had upwards of 6 loose stools without blood every time she eats, associated with burning sensation in the lower abdomen without any fevers or chills. She rates burning sensation 8 out of 10 without radiation. She denies any known sick contacts or use of antibiotics. She has no other complaints today. Related Data Allergies Allergy/AdvReac Type Severity Reaction Status Date / Time alendronate sodium Allergy Severe Severe Verified 07/03/22 12:56 joint pain wheat Allergy Mild Abdominal Verified 07/03/22 12:56 Pain acetaminophen [From Tylenol] AdvReac Mild Gastrointestinal Verified 07/03/22 12:56 Upset Topical E Allergy Intermediate Blister Uncoded 06/27/22 14:12 Review of Systems Review of Systems: CONSTITUTIONAL: Denies fever, chills, or sweats. EYES: Denies visual changes, redness, or discharge. ENT: Denies rhinorrhea, congestion, sore throat, or otalgia. CARDIOVASCULAR: Denies chest pain, palpitations, or edema. RESPIRATORY: Denies cough or dyspnea. GASTROINTESTINAL: Abdominal pain, nonbloody diarrhea denies nausea, vomiting, GENITOURINARY: Denies dysuria or hematuria. SKIN: Denies rash or itching. MUSCULOSKELETAL: Denies back pain, joint pain, or myalgia. NEUROLOGIC: Denies headache, numbness, dizziness, or weakness. PSYCHIATRIC: Denies anxiety or depression. 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 Undifferentiated connective tissue disease (2018) Vitamin D deficiency Surgical History Surgical History History of appendectomy (1986) History of carpal tunnel release of both wrists (1973) History of cholecystectomy History of dilatation and curettage (Unknown) Approx [address] Orellana and Dr. Edward repectively. History of foot surgery Vein in R foot, approx 2019, Dr. Esparza History of hysterectomy (1986) History of lumbosacral spine surgery (03/2011) History of oophorectomy (Unknown) History of repair of right rotator cuff (~1990) S/P total knee arthroplasty Family History Family History Mother Family history of malignant neoplasm of breast in first degree relative, Onset Age: 70 Family history of arthritis Sibling Family history of arthritis Acute myocardial infarction Father Pneumonia Other Carcinoma of colon Diabetes mellitus Family history of cardiovascular disease Family history of malignant neoplasm Heart disease Social History Social History Social History: Surrogate decision maker: Veronica Baig or Bella Marte, daughters. Code status: Do not resuscitate. Smoking status: Never smoker Additional smoking assessment comments: DENIES ANY FORM OF TOBACCO USE Alcohol intake: never Substance use: never Substance use type: does not use Lack of Transportation: No Lack of Food: Never True Current Housing: I Have Housing Concerned About Future Housing: No Difficulty Paying Gas/Electric Bills: No Difficulty Paying for Meds: No Currently Unemployed: No Education: High School Diploma/GED Difficulty w/ Childcare
[2022-07-03 14:43] LABS: Basophils Percent Auto 0.2 % (0.2-1.2); Eosinophils Absolute Auto 0.3 K/mm3 (0-0.3); Eosinophils Percent Auto 2.8 % (0-4.4); Hematocrit 35.2 % (37.0-47.0); Hemoglobin 10.9 g/dL (12.0-15.0); Immature Granulocyte Absolute 0.05 K/mm3 (0.00-0.031); Immature Granulocyte Percent A 0.5 % (0-0.5); Lymphocytes Absolute Auto 1.47 K/mm3 (0.9-3.2); Mean Corpuscular Hemoglobin 27.7 pg (26-34); Mean Corpuscular Volume 89.3 fl (80-100); Mean Platelet Volume 9.4 fl (7.4-10.4); Monocytes Absolute Auto 0.7 K/mm3 (0.1-0.6); Monocytes Percent Auto 7.8 % (2.6-8.5); Neutrophils Absolute Auto 6.7 K/mm3 (1.3-6.7); Neutrophils Percent Auto 72.7 % (45.5-73.1); Platelet Count Result 379 k/mm3 (150-375); Red Blood Count 3.94 M/mm3 (4.2-5.4); Red Cell Distribution Width 15.7 % (11.5-14.5); White Blood Count 9.2 K/mm3 (4.5-10.0)
[2022-07-03 14:54] LABS: Alanine Aminotransferase 15 U/L (6-35); Albumin Level 4.3 g/dL (3.5-5.1); Alkaline Phosphatase 157 U/L (38-126); Anion Gap 9 mmol/L (8-16); Aspartate Amino Transferase 31 U/L (14-36); Bilirubin,Total 0.5 mg/dL (0.2-1.3); Blood Urea Nitrogen 14 mg/dL (7-17); Calcium 10.1 mg/dL (8.4-10.2); Carbon Dioxide 27 mmol/L (22-30); Chloride 106 mmol/L (98-107); Estimated Glomerular Filt Rate > 60; Glucose 99 mg/dL (65-110); Lipase 51 U/L (23-300); Potassium 3.8 mmol/L (3.4-5.0); Sodium 142 mmol/L (137-145)
[2022-07-03 15:15] LABS: Influenza A QL RT-PCR Negative (Negative); Influenza B QL RT-PCR Negative (Negative); SARS-CoV-2 RNA PCR Negative
[2022-07-03] MEDS: SODIUM CHLORIDE 0.9% IV 1,000 ML 999 ML IV CONT (15:18)
[2022-07-03 16:24] LABS: Appearance Urine Clear (Clear); Bilirubin Urine 1+ (Negative); Blood Urine Trace-lysed (Negative); Color Urine Yellow (Yellow); Glucose Urine UA Negative (Negative); Ketones Urine 1+ mg/dL (Negative); Leukocyte Esterase Ur Negative LEU/UL (Negative); Nitrate Urine Negative (Negative); Protein Urine 1+ mg/dL (Negative); Specific Grav Ur >= 1.030 (1.001-1.035); Urobilinogen Urine 0.2 mg/dL (<2.0)
[2022-07-03 16:38] LABS: Mucus Urine Moderate /lpf; Squamous Epithelial Cell Urine Occasional /hpf (Few); WBC Urine 0-3 /hpf
[2022-07-03 16:39] LABS: Add Urine Microscopic? YES
[2022-07-03 18:12] VITALS: BP 114/68; PULSE 76; RESP 18; TEMP 36.6; O2SAT 100
== END 2022-07-03 18:20 ==
PROVIDERS: Emergency Provider Preventive Medicine Aerospace Medicine; PCP Family Medicine
DX: K52.9 Noninfective gastroenteritis and colitis, unspecified (principal); Z20.822 Contact with and (suspected) exposure to COVID-19; K51.90 Ulcerative colitis, unspecified, without complications; E78.5 Hyperlipidemia, unspecified; M35.9 Systemic involvement of connective tissue, unspecified; M06.9 Rheumatoid arthritis, unspecified; M81.0 Age-related osteoporosis without current pathological fracture; M19.90 Unspecified osteoarthritis, unspecified site; E55.9 Vitamin D deficiency, unspecified; Z66 Do not resuscitate; Z87.01 Personal history of pneumonia (recurrent); Z86.711 Personal history of pulmonary embolism; Z86.718 Personal history of other venous thrombosis and embolism; Z90.710 Acquired absence of both cervix and uterus; Z96.659 Presence of unspecified artificial knee joint
CPT/HCPCS: 36415; 51701; 80053; 81001; 83690; 85025; 87636; 96360; 99283; J7030

== ENCOUNTER 2022-10-04 13:41 | Outpatient (CLI) | payer OTHER, SELFPAY ==
[2022-10-04 13:58] LABS: Basophils Percent Auto 0.5 % (0.2-1.2); Eosinophils Absolute Auto 0.4 K/mm3 (0-0.3); Eosinophils Percent Auto 5.8 % (0-4.4); Hematocrit 40.2 % (37.0-47.0); Hemoglobin 12.5 g/dL (12.0-15.0); Immature Granulocyte Absolute 0.01 K/mm3 (0.00-0.031); Immature Granulocyte Percent A 0.1 % (0-0.5); Lymphocytes Absolute Auto 1.56 K/mm3 (0.9-3.2); Lymphocytes Percent Auto 21.2 % (18.3-44.2); Mean Corpuscular HGB Conc 31.1 g/dl (32-36); Mean Corpuscular Hemoglobin 27.1 pg (26-34); Mean Corpuscular Volume 87.2 fl (80-100); Mean Platelet Volume 9.5 fl (7.4-10.4); Monocytes Absolute Auto 0.5 K/mm3 (0.1-0.6); Monocytes Percent Auto 7.2 % (2.6-8.5); Neutrophils Absolute Auto 4.8 K/mm3 (1.3-6.7); Neutrophils Percent Auto 65.2 % (45.5-73.1); Platelet Count Result 267 k/mm3 (150-375); Red Blood Count 4.61 M/mm3 (4.2-5.4); Red Cell Distribution Width 15.7 % (11.5-14.5); White Blood Count 7.4 K/mm3 (4.5-10.0)
[2022-10-04 18:41] LABS: Iron 42 ug/dL (37-170)
[2022-10-04 18:53] LABS: Percent Iron Saturation 11 % (20-50); Vitamin D 25 Hydroxy 40.6 ng/mL
[2022-10-04 19:42] LABS: Folic Acid 7.6 ng/mL (2.76->20)
== END 2022-10-04 13:42 | disposition home or self-care (01) ==
LOC: ANHLAB 13:42
PROVIDERS: PCP Family Medicine; Visit Provider Family Medicine
DX: R63.4 Abnormal weight loss (principal); E55.9 Vitamin D deficiency, unspecified; Z13.29 Encounter for screening for other suspected endocrine disorder; D64.9 Anemia, unspecified
CPT/HCPCS: 36415; 82306; 82607; 82728; 82746; 83540; 83550; 84443; 85025

== ENCOUNTER 2023-04-02 14:01 | Observation (INO) | payer OTHER, SELFPAY ==
[2023-04-02] VITALS (11 sets, daily range): BP systolic 122–144; BP diastolic 58–75; PULSE 69–78; RESP 14–22; TEMP 37; O2SAT 94–100
--- NOTE | ~2023-04-02 | CT_ITS ---
EXAMINATION: CT abdomen pelvis w con DATE: 04/02/2023 18:54 INDICATION: Diffuse abdominal pain TECHNIQUE: Computed tomography (CT) of the abdomen and pelvis was performed with 100 mL Omnipaque-350 intravenous contrast. Automated exposure control and iterative reconstruction technique were employe d. The dose-length product was 325.69 mGy-cm. COMPARISON: None. FINDINGS: Lower thorax: Multiple stable pulmonary nodules. Bibasilar scar/atelectasis. Liver: Multiple hepatic cysts. Biliary/Gallbladder: Gallbladder is absent. Intrahepatic and extra hepatic bile duct dilation, unchan ged and likely secondary to age and cholecystectomy Pancreas: No mass or duct dilation. Spleen: Normal. Adrenals:No mass. Kidneys: Simple bilateral renal cysts. Multiple additional bilateral hypodensities, too small to toni acterize but most likely represent cysts. No suspicious mass, obstructing stone, or hydronephrosis. GI tract: Moderate distal esophageal and gastric wall edema. Bowel evaluation is limited by beam hard ening artifact, lack of abdominal fat, and variable bowel content including densely inspissated stool . Improved but persistent moderate sigmoid colon edema. Appendix not visualized. Mesentery/Peritoneum: No ascites or mass. Small-volume low-density free pelvic fluid. Retroperitoneum: No mass. Pelvis: Partial bladder distention, bladder wall thickening. Absent uterus. Soft Tissues: Soft tissues and body wall unremarkable. Bones: No acute osseous finding. Uncomplicated appearing posterior lumbar fusion hardware. IMPRESSION: Moderate esophagitis/gastritis. Sigmoid colitis. Small volume free pelvic fluid. Possible cystitis Reviewed, dictated and finalized at location K.
[2023-04-02 14:15] LABS: Basophils Percent Auto 0.2 % (0.2-1.2); Eosinophils Percent Auto 0.1 % (0-4.4); Hematocrit 43.4 % (37.0-47.0); Hemoglobin 14.2 g/dL (12.0-15.0); Immature Granulocyte Absolute 0.04 K/mm3 (0.00-0.031); Immature Granulocyte Percent A 0.3 % (0-0.5); Lymphocytes Absolute Auto 0.95 K/mm3 (0.9-3.2); Lymphocytes Percent Auto 6.2 % (18.3-44.2); Mean Corpuscular HGB Conc 32.7 g/dl (32-36); Mean Corpuscular Hemoglobin 29.4 pg (26-34); Mean Corpuscular Volume 89.9 fl (80-100); Monocytes Absolute Auto 1.5 K/mm3 (0.1-0.6); Monocytes Percent Auto 9.7 % (2.6-8.5); Neutrophils Absolute Auto 12.7 K/mm3 (1.3-6.7); Neutrophils Percent Auto 83.5 % (45.5-73.1); Platelet Count Result 249 k/mm3 (150-375); Red Blood Count 4.83 M/mm3 (4.2-5.4); Red Cell Distribution Width 14.1 % (11.5-14.5); White Blood Count 15.2 K/mm3 (4.5-10.0)
[2023-04-02 14:28] LABS: Alanine Aminotransferase 19 U/L (6-35); Albumin Level 4.7 g/dL (3.5-5.1); Alkaline Phosphatase 155 U/L (38-126); Anion Gap 9 mmol/L (8-16); Aspartate Amino Transferase 31 U/L (14-36); Bilirubin,Total 1.4 mg/dL (0.2-1.3); Blood Urea Nitrogen 22 mg/dL (7-17); Calcium 10.5 mg/dL (8.4-10.2); Carbon Dioxide 26 mmol/L (22-30); Chloride 104 mmol/L (98-107); Estimated Glomerular Filt Rate > 60; Glucose 152 mg/dL (65-110); Lipase 30 U/L (23-300); Potassium 3.7 mmol/L (3.4-5.0); Sodium 139 mmol/L (137-145)
[2023-04-02 17:21] LABS: Appearance Urine Clear (Clear); Bacteria Urine None Seen /hpf; Bilirubin Urine Negative (Negative); Blood Urine 3+ (Negative); Color Urine Dark Yellow (Yellow); Glucose Urine UA Negative (Negative); Ketones Urine 2+ mg/dL (Negative); Leukocyte Esterase Ur Negative LEU/UL (Negative); Mucus Urine Present /lpf; Need Manual Microscopic Reviewed; Nitrate Urine Negative (Negative); Protein Urine 1+ mg/dL (Negative); RBC Urine 21-50 /hpf (0-2); Specific Grav Ur 1.028 (1.001-1.035); Squamous Epithelial Cell Urine Occasional /hpf (Few); WBC Urine 0-5 /hpf
[2023-04-02 17:23] LABS: Add Urine Microscopic? YES
[2023-04-02] MEDS: ONDANSETRON INJ 4 MG/2 ML VIAL IV PUSH (18:09)
[2023-04-02] MEDS: SODIUM CHLORIDE 0.9% IV 1,000 ML 999 ML IV CONT (18:11)
--- NOTE | 2023-04-02 18:24 | ED.NAVMDI ---
HPI - Nausea/Vomiting/Diarrhea General Chief complaint: Nausea/Vomiting/Diarrhea Stated complaint: n/v/d Time Seen by Provider: 04/02/23 16:11 History of Present Illness HPI Narrative: This is an 82-year-old female, with past history of lupus,, who presents emergency department complaining of nausea, vomiting and diarrhea for the past 4 days. She is complains of fatigue and some lightheadedness along with irritation of hemorrhoids and small amount of blood with wiping, but has no other complaints. She denies any recent travel or known sick contacts. Related Data Home Medications Medication Instructions Recorded Confirmed No Home Medications 03/09/23 03/09/23 Allergies Allergy/AdvReac Type Severity Reaction Status Date / Time alendronate sodium Allergy Severe Severe Verified 03/09/23 14:04 joint pain wheat Allergy Mild Abdominal Verified 03/09/23 14:04 Pain acetaminophen [From Tylenol] AdvReac Mild Gastrointestinal Verified 03/09/23 14:04 Upset Topical E Allergy Intermediate Blister Uncoded 03/09/23 14:04 Review of Systems Review of Systems: CONSTITUTIONAL: Denies fever, chills, or sweats. CARDIOVASCULAR: Denies chest pain, palpitations, or edema. RESPIRATORY: Denies cough or dyspnea. GASTROINTESTINAL: Nausea, vomiting and diarrhea for the past 4 days denies abdominal pain GENITOURINARY: Denies dysuria or hematuria. SKIN: Denies rash or itching. MUSCULOSKELETAL: Denies back pain, joint pain, or myalgia. NEUROLOGIC: Denies headache, numbness, dizziness, or weakness. PSYCHIATRIC: Denies anxiety or depression. 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 Undifferentiated connective tissue disease (2018) Vitamin D deficiency Surgical History Surgical History History of appendectomy (1986) History of carpal tunnel release of both wrists (1973) History of cholecystectomy History of dilatation and curettage (Unknown) Approx '[address] Orellana and Dr. Edward repectively. History of foot surgery Vein in R foot, approx 2019, Dr. Esparza History of hysterectomy (1986) History of lumbosacral spine surgery (03/2011) History of oophorectomy (Unknown) History of repair of right rotator cuff (~1990) History of total right knee replacement (~06/07/22) S/P total knee arthroplasty Family History Family History Mother Family history of malignant neoplasm of breast in first degree relative, Onset Age: 70 Family history of arthritis Sibling Family history of arthritis Acute myocardial infarction Father Pneumonia Other Carcinoma of colon Diabetes mellitus Family history of cardiovascular disease Family history of malignant neoplasm Heart disease Social History Social History Social History: Surrogate decision maker: Veronica Baig or Bella Marte, daughters. Code status: Do not resuscitate. Smoking status: Never smoker Additional smoking assessment comments: DENIES ANY FORM OF TOBACCO USE Alcohol intake: never Substance use: never Substance use type: does not use Lack of Transportation: No Lack of Food: Never True Current Housing: I Have Housing Concerned About Future Housing: No Difficulty Paying Gas/Electric Bills: No Difficulty Paying for Meds: No Currently Unemployed: No Education: High School Diploma/GED Difficulty w/ Childcare or Family Care: No Living arrangements: alone Occupation/Education: retired Gender identity (if verbalize
[2023-04-02] MEDS: PIPERACILLN/TAZ 3.375GM/NS50ML 3.375 GM/50 ML BAG IVPB (23:04)
[2023-04-03 00:15] VITALS: BP 129/60; PULSE 72; RESP 14; TEMP 36.2; O2SAT 98; BMI 22.6
--- NOTE | 2023-04-03 00:27 | PC.NURSE ---
patient does not take any prescriptions medication, does take herbal supplement and does not know dosage.
[2023-04-03 00:36] VITALS: BMI 23.3
[2023-04-03 00:37] VITALS: O2SAT 98
[2023-04-03] MEDS: SODIUM CHLORIDE 0.9% IV 1,000 ML 150 ML IV CONT (01:26)
--- NOTE | 2023-04-03 02:49 | PC.NURSE ---
code changed to DNR
[2023-04-03 06:00] VITALS: BP 105/63; PULSE 65; RESP 14; TEMP 36.3; O2SAT 96
[2023-04-03 06:46] LABS: Basophils Percent Auto 0.3 % (0.2-1.2); Eosinophils Absolute Auto 0.1 K/mm3 (0-0.3); Eosinophils Percent Auto 0.4 % (0-4.4); Hematocrit 35.4 % (37.0-47.0); Hemoglobin 11.5 g/dL (12.0-15.0); Immature Granulocyte Absolute 0.03 K/mm3 (0.00-0.031); Immature Granulocyte Percent A 0.3 % (0-0.5); Lymphocytes Absolute Auto 2.39 K/mm3 (0.9-3.2); Lymphocytes Percent Auto 21.2 % (18.3-44.2); Mean Corpuscular HGB Conc 32.5 g/dl (32-36); Mean Corpuscular Hemoglobin 29.4 pg (26-34); Mean Corpuscular Volume 90.5 fl (80-100); Mean Platelet Volume 10.7 fl (7.4-10.4); Monocytes Absolute Auto 1.1 K/mm3 (0.1-0.6); Monocytes Percent Auto 9.6 % (2.6-8.5); Neutrophils Absolute Auto 7.7 K/mm3 (1.3-6.7); Neutrophils Percent Auto 68.2 % (45.5-73.1); Platelet Count Result 192 k/mm3 (150-375); Red Blood Count 3.91 M/mm3 (4.2-5.4); Red Cell Distribution Width 14.4 % (11.5-14.5); White Blood Count 11.3 K/mm3 (4.5-10.0)
[2023-04-03 07:15] LABS: Anion Gap 6 mmol/L (8-16); Blood Urea Nitrogen 15 mg/dL (7-17); Calcium 8.9 mg/dL (8.4-10.2); Carbon Dioxide 24 mmol/L (22-30); Chloride 111 mmol/L (98-107); Estimated Glomerular Filt Rate > 60; Glucose 80 mg/dL (65-110); Potassium 2.9 mmol/L (3.4-5.0); Sodium 141 mmol/L (137-145)
[2023-04-03 14:13] VITALS: BP 103/62; PULSE 58; RESP 16; TEMP 36.8; O2SAT 99
[2023-04-03] MEDS: POTASSIUM CHLORIDE INJ 40 MEQ in SODIUM CHLORIDE 0.9% IV 500 ML 90 MEQ IVPB (14:40)
--- NOTE | 2023-04-03 16:21 | WPDGICN ---
Assessment and Plan Assessment and plan (1) Nausea & vomiting: Code(s): R11.2 - Nausea with vomiting, unspecified Status: Acute Assessment and Plan: Last Monday she developed nausea and some vomiting but this has since resolved. She is hungry and would like to eat. (2) Diarrhea: Code(s): R19.7 - Diarrhea, unspecified Status: Inactive Assessment and Plan: While she was having nausea vomiting she also had loose stools. Yesterday she had a pasty stool. She is not having diarrhea. She denies any abdominal cramping and has not seen blood in her stools. (3) Ulcerative colitis: Code(s): K51.90 - Ulcerative colitis, unspecified, without complications Status: Acute Assessment and Plan: As I spoke with her and her daughter it appears that she never was truly diagnosed as having ulcerative colitis. She certainly has never been treated for that condition. She in fact takes no medications at this time. (4) Hiatal hernia: Code(s): K44.9 - Diaphragmatic hernia without obstruction or gangrene Status: Acute Assessment and Plan: she had an EGD couple of years ago by Dr. Sifuentes and was told that she had a hiatal hernia. She states she gets a tenderness under her ribs on the left side when she eats and she thought that that was her hernia. I explained to her that hiatal hernia is seen the diaphragm behind the heart. He is perplexed because all long she thought that the pain she gets in her costal margin was some sort of hernia. . We discussed acid reflux and relationship to a hiatal hernia. Plan I will advance her diet. If she tolerates it then from my perspective she could be discharged. I did suggest that she again tried to follow-up with her circular shear operator in [place] who knows her well. GI Consult Note Consult date/time: 04/03/23 16:21 HPI: Rula Nix is a 82 year old female who presented to emergency room yesterday with a several-day history of nausea vomiting and diarrhea. She has remote history of colitis. It is unclear whether she ever had ulcerative colitis. Her daughter stated that it was apparently diagnosed with a blood test . She has history of lupus and rheumatoid arthritis. She had been on Plaquenil but is not longer on any medication. She has history of a chronic nonhealing anal ulcer colon back about 10 years. She saw a surgeon last year for consultation regarding that prior to having orthopedic surgery. She was told that she should apply Desitin and use stool softeners. However the nurse practitioner in her circular shear operator's office told her that she could not find any evidence of her having that ulcer. She does pass mucus from time to time. She denies having diarrhea. She has been receiving letters from her circular shear operator in [place] stating it is time for colonoscopy because it has been 5 years she has try to schedule with them but we cannot get through. Reason I am asked to see her hours because of nausea vomiting diarrhea. She states that these have all resolved and she would like to eat. She does not have fever. She has not been traveling. She has not been on antibiotics in fact does not take any medications at this time. 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 Undifferentiated connective tissue disease (2018) Vitamin D deficiency Surgical History Surgical History History of appende
--- NOTE | 2023-04-03 17:44 | PM.IMHP ---
H&P: HPI History of Present Illness Date/Time: 04/03/23 17:44 Chief Complaint: 82-year-old female with history of lupus, rheumatoid arthritis, histoplasmosis, PE/DVT who is presenting with 3-5 day history of progressively worsening nausea, vomiting and diarrhea. She denies any chest pain or shortness of breath, no fevers or chills. No recent travel or sick contacts. She does states that she is starting to feel a little lightheaded and fatigued. She does have a history of an anal ulcer that appears to be draining serous fluid. She denies any rectal bleeding. 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 Undifferentiated connective tissue disease (2018) Vitamin D deficiency Surgical History Surgical History History of appendectomy (1986) History of carpal tunnel release of both wrists (1973) History of cholecystectomy History of dilatation and curettage (Unknown) Approx [address] Orellana and Dr. Edward repectively. History of foot surgery Vein in R foot, approx 2019, Dr. Esparza History of hysterectomy (1986) History of lumbosacral spine surgery (03/2011) History of oophorectomy (Unknown) History of repair of right rotator cuff (~1990) History of total right knee replacement (~06/07/22) S/P total knee arthroplasty Family History Family History Mother Family history of malignant neoplasm of breast in first degree relative, Onset Age: 70 Family history of arthritis Sibling Family history of arthritis Acute myocardial infarction Father Pneumonia Other Carcinoma of colon Diabetes mellitus Family history of cardiovascular disease Family history of malignant neoplasm Heart disease Social History Social History Social History: Surrogate decision maker: Veronica Baig or Bella Marte, daughters. Code status: Do not resuscitate. Smoking status: Never smoker Additional smoking assessment comments: DENIES ANY FORM OF TOBACCO USE Alcohol intake: never Substance use: never Substance use type: does not use Lack of Transportation: YES Lack of Food: Never True Current Housing: I Have Housing Concerned About Future Housing: No Difficulty Paying Gas/Electric Bills: No Difficulty Paying for Meds: No Currently Unemployed: No Education: High School Diploma/GED Difficulty w/ Childcare or Family Care: No Living arrangements: alone Occupation/Education: retired Gender identity (if verbalized by the patient): Female Sexual Orientation (if Verbalized by the Patient): Straight or Heterosexual Spiritual care concerns: No Meds Home Medications and Allergies Home Medications Medication Instructions Recorded Confirmed Type No Home Medications 03/09/23 04/03/23 History Allergies Allergy/AdvReac Type Severity Reaction Status Date / Time alendronate sodium Allergy Severe Severe Verified 04/03/23 00:26 joint pain wheat Allergy Mild Abdominal Verified 04/03/23 00:26 Pain acetaminophen [From Tylenol] AdvReac Mild Gastrointestinal Verified 04/03/23 00:26 Upset Topical E Allergy Intermediate Blister Uncoded 04/03/23 00:26 Vital Signs Vital Signs - 24 hr 04/02/23 17:50 04/02/23 18:00 04/02/23 18:15 Temperature Pulse Rate 72 69 76 Respiratory Rate 18 14 20 Blood Pressure Pulse Oximetry 99 Oxygen Delivery
[2023-04-03 21:14] VITALS: BP 102/59; PULSE 89; RESP 14; TEMP 36.3; O2SAT 100
[2023-04-03 22:38] VITALS: BP 102/60
[2023-04-04 05:48] VITALS: BP 111/56; PULSE 57; RESP 16; TEMP 36.2; O2SAT 99
[2023-04-04 06:06] VITALS: BP 110/60
[2023-04-04 08:00] VITALS: O2SAT 99
[2023-04-04 08:45] LABS: Basophils Percent Auto 0.5 % (0.2-1.2); Eosinophils Absolute Auto 0.1 K/mm3 (0-0.3); Eosinophils Percent Auto 1.2 % (0-4.4); Hemoglobin 12.1 g/dL (12.0-15.0); Immature Granulocyte Absolute 0.03 K/mm3 (0.00-0.031); Immature Granulocyte Percent A 0.4 % (0-0.5); Lymphocytes Absolute Auto 2.49 K/mm3 (0.9-3.2); Lymphocytes Percent Auto 32.5 % (18.3-44.2); Mean Corpuscular HGB Conc 31.8 g/dl (32-36); Mean Corpuscular Hemoglobin 29.2 pg (26-34); Mean Corpuscular Volume 91.6 fl (80-100); Mean Platelet Volume 10.3 fl (7.4-10.4); Monocytes Absolute Auto 0.5 K/mm3 (0.1-0.6); Monocytes Percent Auto 7.1 % (2.6-8.5); Neutrophils Absolute Auto 4.5 K/mm3 (1.3-6.7); Neutrophils Percent Auto 58.3 % (45.5-73.1); Platelet Count Result 202 k/mm3 (150-375); Red Blood Count 4.15 M/mm3 (4.2-5.4); Red Cell Distribution Width 14.6 % (11.5-14.5); White Blood Count 7.7 K/mm3 (4.5-10.0)
[2023-04-04 09:03] LABS: Alanine Aminotransferase 17 U/L (6-35); Albumin Level 3.7 g/dL (3.5-5.1); Alkaline Phosphatase 87 U/L (38-126); Anion Gap 3 mmol/L (8-16); Aspartate Amino Transferase 27 U/L (14-36); Bilirubin,Total 0.8 mg/dL (0.2-1.3); Blood Urea Nitrogen 8 mg/dL (7-17); Calcium 9.3 mg/dL (8.4-10.2); Carbon Dioxide 27 mmol/L (22-30); Chloride 108 mmol/L (98-107); Estimated Glomerular Filt Rate > 60; Glucose 96 mg/dL (65-110); Potassium 3.4 mmol/L (3.4-5.0); Sodium 138 mmol/L (137-145)
--- NOTE | 2023-04-04 11:30 | PM.IMPN ---
Progress Note: A&P Assessment and Plan (1) Nausea & vomiting: Code(s): R11.2 - Nausea with vomiting, unspecified Status: Acute Assessment and Plan: Resolving, IV fluids, supportive care, advance diet as tolerated Appreciate GI consultation (2) Anal ulcer: Code(s): K62.6 - Ulcer of anus and rectum Status: Acute Assessment and Plan: Consult general surgery (3) Rheumatoid arthritis: Code(s): M06.9 - Rheumatoid arthritis, unspecified Status: Acute Plan DVT prophylaxis with SCDs GI prophylaxis not indicated Code status DNR Subjective Date/time seen: 04/04/23 11:30 Interval history: 82-year-old female with history of lupus, rheumatoid arthritis, histoplasmosis, PE/DVT who is presenting with 3-5 day history of progressively worsening nausea, vomiting and diarrhea.? No overnight events noted. No chest pain or shortness of breath. No nausea, vomiting or diarrhea. No fevers or chills. Review of Systems Review of Systems: 12 point review of systems was assessed and was negative except as noted in the HPI Exam Narrative: General: No acute distress, alert and oriented per baseline HEENT: Atraumatic, normocephalic, mucous membranes moist CV: Regular rate and rhythm, S1, S2 Lungs: Clear to auscultation bilaterally, no rales or crackles noted, no wheezes, good air entry Abdomen: Soft, nontender, nondistended Extremities: Normal to inspection Skin: No rashes noted, no lesions or wounds seen Psych: Euthymic, normal affect Objective Data Vital Signs Vital Signs: Vital Signs - 24 hr 04/03/23 14:13 04/03/23 21:14 04/03/23 22:38 Temperature 98.2 F 97.4 F L Pulse Rate 58 L 89 Respiratory Rate 16 14 Blood Pressure 103/62 102/59 L 102/60 Pulse Oximetry 99 100 Oxygen Delivery 04/04/23 05:48 04/04/23 06:06 04/04/23 08:00 Temperature 97.1 F L Pulse Rate 57 L Respiratory Rate 16 Blood Pressure 111/56 L 110/60 Pulse Oximetry 99 99 Oxygen Delivery Room Air Intake/Output Intake/Output: Intake & Output 04/01/23 04/02/23 04/03/23 04/04/23 23:59 23:59 23:59 23:59 Intake Total 1000 1180 320 Balance 1000 1180 320 Meds/Results Medications: Active Medications Generic Name Dose Route Start Last Admin Trade Name Freq PRN Reason Stop Dose Admin Ondansetron HCl 4 mg 04/02/23 21:54 Ondansetron Inj 4 Mg/2 Ml Vial IV PUSH Q4H PRN Nausea Radiology Results: ITS Impressions Abdomen/Pelvis CT 04/02/23 19:02 IMPRESSION: Moderate esophagitis/gastritis. Sigmoid colitis. Small volume free pelvic fluid. Possible cystitis Labs Labs: Laboratory Results - last 24 hr 04/04/23 08:33 WBC 7.7 RBC 4.15 L Hgb 12.1 Hct 38.0 MCV 91.6 MCH 29.2 MCHC 31.8 L RDW 14.6 H Plt Count 202 MPV 10.3 Immature Gran % (Auto) 0.4 Neut % (Auto) 58.3 Lymph % (Auto) 32.5 [place] % (Auto) 7.1 Eos % (Auto) 1.2 Baso % (Auto) 0.5 Lymph # (Auto) 2.49 [place] # (Auto) 0.5 Eos # (Auto) 0.1 Baso # (Auto) 0.0 Abs Immat Gran (auto) 0.03 Absolute Neuts (auto) 4.5 Absolute Nucleated RBC 0.0 Nucleated RBC % 0.0 Sodium 138 Potassium 3.4 Chloride 108 H Carbon Dioxide 27 Anion Gap 3 L BUN 8 D Creatinine 0.50 L Estim Creat Clear Calc Not Reportable Estimated GFR > 60 Glucose 96 Calcium 9.3 Total Bilirubin 0.8 AST 27 ALT 17 Alkaline Phosphatase 87 Total Protein 7.0 Albumin 3.7
--- NOTE | 2023-04-04 13:11 | PM.CNGS ---
Assessment and Plan Assessment and plan (1) Colitis: Code(s): K52.9 - Noninfective gastroenteritis and colitis, unspecified Status: Acute Assessment and Plan: Patient presented with sigmoid colitis after presenting with vomiting and diarrhea. She has a history of an anal ulcer, which she was seen for by Dr. Moore in May of 2022. There is no anal ulcer on exam. She is not having any rectal pain and is nontender. Her previous anal ulcer has likely healed. We would recommend to continue medical treatment of her sigmoid colitis and further work-up per GI. No indication for any surgical intervention at this time. (2) Nausea & vomiting: Code(s): R11.2 - Nausea with vomiting, unspecified Status: Acute Assessment and Plan: Resolved (3) Hiatal hernia: Code(s): K44.9 - Diaphragmatic hernia without obstruction or gangrene Status: Acute Plan I have discussed the patient's case and plan of care with Dr. Moore. History of Present Illness Consult details Consult date: 04/04/23 Reason for consult: other (Anal ulcer) Requesting physician: Melida Bernard DO Narrative: This is an 82-year-old woman with a history of lupus and rheumatoid arthritis, who presented to the ER 2 days ago with complaints of nausea, vomiting, and diarrhea. She has a remote history of colitis, but is unclear if she has ever been diagnosed with ulcerative colitis. She had reportedly been having nausea, vomiting, and diarrhea for a few days prior to presenting. She does report also left-sided abdominal pain. This pain comes and goes and reportedly is something she deals with chronically. She reports that seems to be aggravated by certain foods. In the ER, she was found to CT evidence of sigmoid colitis, possible cystitis, and esophagitis/gastritis. She was admitted and GI was consulted. She reports having some loose stools since being admitted, but overall her diarrhea and nausea has improved. She reports having a colonoscopy about 5 years ago by a accuracy expert in [place]. She was scheduled to have another colonoscopy in March but had issues with scheduling. She reports having this intermittent bloody mucus-type drainage when she would wipe after a bowel movement and also when her stools were loose. No significant rectal bleeding. She reports having history of an anal ulcer, which she was seen in our office for in May of 2022. She was seen for evaluation by the request of her orthopedic surgeon prior to having orthopedic surgery to rule out infection. She was instructed to apply Desitin and take stool softeners and Metamucil. She does report dealing with chronic constipation that has not improved with any laxatives, stool softeners, or fiber supplements that she has tried. She also reports a history of internal hemorrhoids that she has used hydrocortisone for in the past. Our service has been consulted for an anal ulcer. She is now seen on the medical floor. Review of Systems Review of Systems: All systems reviewed & are unremarkable except as noted in HPI and below Constitutional: Constitutional: Reports no additional constitutional complaints, Denies chills, Denies fatigue and Denies fever(s) Eyes: Eyes: Reports no additional eye complaints ENT: Reports system reviewed and no additional complaints, except as documented and Denies dizziness Cardiovascular: Cardiovascular: Reports no additional cardiovascular complaints, Denies chest pain and Denies leg edema Respiratory: Respiratory: Reports no additional respiratory complaints, Denies cough and Denies dyspnea Gastrointestinal: Gastrointestinal: Reports as per HPI, Reports no additional gastrointestinal complaints, Reports abdominal pain, Reports constipation, Reports diarrhea, Reports nausea and Reports vomiting Musculoskeletal: Musculoskeletal: Reports no additional musculoskeletal complaints, Denies abnormal gait and Denies joint swelling Inte
[2023-04-04 13:45] VITALS: BP 110/52; PULSE 69; RESP 16; TEMP 36.7; O2SAT 98
--- NOTE | 2023-04-04 14:22 | PM.DS ---
DS: Admitting Diagnosis Discharge Date 04/04/2023 Admitting Diagnosis Nausea vomiting diarrhea DS: Discharge Diagnosis Discharge Diagnosis (1) Nausea & vomiting: Code(s): R11.2 - Nausea with vomiting, unspecified Status: Acute Assessment and Plan: Resolving, IV fluids, supportive care, advance diet as tolerated Appreciate GI consultation (2) Anal ulcer: Code(s): K62.6 - Ulcer of anus and rectum Status: Acute Assessment and Plan: Consult general surgery (3) Rheumatoid arthritis: Code(s): M06.9 - Rheumatoid arthritis, unspecified Status: Acute Plan DVT prophylaxis with SCDs GI prophylaxis not indicated Code status DNR DS: Summary Hospital Course Hospital Course: 82-year-old female with history of lupus, rheumatoid arthritis, histoplasmosis, PE/DVT who is presenting with 3-5 day history of progressively worsening nausea, vomiting and diarrhea.? Patient presented with sigmoid colitis after presenting with vomiting and diarrhea. She has a history of an anal ulcer, which she was seen for by Dr. Moore in May of 2022. There is no anal ulcer on exam. She is not having any rectal pain and is nontender. Her previous anal ulcer has likely healed. We would recommend to continue medical treatment of her sigmoid colitis and further work-up per GI. No indication for any surgical intervention at this time. All symptoms resolved supportive care and she was discharged in stable condition. Please see above and med rec for details. Outpatient follow-up arranged. Time Spent with Patient Time attestation: Total time spent providing and/or coordinating discharge services: Exam Narrative: General: No acute distress, alert and oriented per baseline HEENT: Atraumatic, normocephalic, mucous membranes moist CV: Regular rate and rhythm, S1, S2 Lungs: Clear to auscultation bilaterally, no rales or crackles noted, no wheezes, good air entry Abdomen: Soft, nontender, nondistended Extremities: Normal to inspection Skin: No rashes noted, no lesions or wounds seen Psych: Euthymic, normal affect DS: Data Data Completed and Pending Labs on day of discharge: Labs from last 24 hours 04/04/23 08:33 WBC 7.7 RBC 4.15 L Hgb 12.1 Hct 38.0 MCV 91.6 MCH 29.2 MCHC 31.8 L RDW 14.6 H Plt Count 202 MPV 10.3 Immature Gran % (Auto) 0.4 Neut % (Auto) 58.3 Lymph % (Auto) 32.5 Terry % (Auto) 7.1 Eos % (Auto) 1.2 Baso % (Auto) 0.5 Lymph # (Auto) 2.49 Terry # (Auto) 0.5 Eos # (Auto) 0.1 Baso # (Auto) 0.0 Abs Immat Gran (auto) 0.03 Absolute Neuts (auto) 4.5 Absolute Nucleated RBC 0.0 Nucleated RBC % 0.0 Sodium 138 Potassium 3.4 Chloride 108 H Carbon Dioxide 27 Anion Gap 3 L BUN 8 D Creatinine 0.50 L Estim Creat Clear Calc Not Reportable Estimated GFR > 60 Glucose 96 Calcium 9.3 Total Bilirubin 0.8 AST 27 ALT 17 Alkaline Phosphatase 87 Total Protein 7.0 Albumin 3.7 Discharge Plan Discharge Attending physician on discharge: Melida Bernard Consulting providers: Jose Taylor; Alfonzo Arndt; Faby Suarez Discharging Clinician: Melida Bernard Patient Disposition: Home, Self-Care Activity: as tolerated Diet: as tolerated and lactose free Patient Instructions: Antibiotic Form Stand Alone Forms: General Discharge Information Follow-up/Referrals: Jose Taylor MD [Physician] - Michael Rich MD [Primary Care Provider] - Discharge Medications: No Action omeprazole 40 mg capsule,delayed release(DR/EC) 40 mg PO DAILY Qty: 90 0RF Date of admission: 04/02/23 21:54 Primary Care Provider: Michael Rich Admitting Provider: Cassandra Walters Attending physician on admission: Melida Bernard Condition: Serious
== END 2023-04-04 15:10 | disposition home or self-care (01) ==
LOC: ANHED 16:23 → ANH3MEDSUR 23:10
PROVIDERS: Admitting Provider Internal Medicine; Emergency Provider Preventive Medicine Aerospace Medicine; PCP Family Medicine; Visit Provider Student in an Organized Health Care Education/Training Program
DX: K62.6 Ulcer of anus and rectum (principal); K52.9 Noninfective gastroenteritis and colitis, unspecified; K44.9 Diaphragmatic hernia without obstruction or gangrene; K64.9 Unspecified hemorrhoids; R42 Dizziness and giddiness; M15.9 Polyosteoarthritis, unspecified; E78.5 Hyperlipidemia, unspecified; M06.9 Rheumatoid arthritis, unspecified; M81.0 Age-related osteoporosis without current pathological fracture; D72.829 Elevated white blood cell count, unspecified; E83.52 Hypercalcemia; R74.8 Abnormal levels of other serum enzymes; R79.9 Abnormal finding of blood chemistry, unspecified; Z86.19 Personal history of other infectious and parasitic diseases; Z86.718 Personal history of other venous thrombosis and embolism; Z66 Do not resuscitate; Z82.61 Family history of arthritis
CPT/HCPCS: 36415; 74177; 80048; 80053; 81001; 83690; 85025; 96361; 96374; 96375; 99285; G0378; J2405; J2543; J3480; J7030; J7040; Q9967

== ENCOUNTER 2023-04-12 14:55 | Outpatient (CLI) | payer OTHER, SELFPAY ==
[2023-04-12 19:07] LABS: Appearance Urine Clear (Clear); Bacteria Urine None Seen /hpf; Bilirubin Urine Negative (Negative); Blood Urine 2+ (Negative); Color Urine Yellow (Yellow); Glucose Urine UA Negative (Negative); Ketones Urine 2+ mg/dL (Negative); Leukocyte Esterase Ur Negative LEU/UL (Negative); Nitrate Urine Negative (Negative); Non Pathogenic Casts 0-2; Protein Urine Negative (Negative); Specific Grav Ur 1.022 (1.001-1.035); Squamous Epithelial Cell Urine None seen /hpf (Few); Urobilinogen Urine 0.2 mg/dL (<2.0); WBC Urine 0-5 /hpf; pH Urine 5.5 (5.0-9.0)
[2023-04-12 19:19] LABS: Add Urine Microscopic? YES
== END 2023-04-12 14:56 | disposition home or self-care (01) ==
LOC: ANHGOSHLAB 14:56
PROVIDERS: PCP Family Medicine; Visit Provider Family Medicine
DX: R31.29 Other microscopic hematuria (principal)
CPT/HCPCS: 81001

== ENCOUNTER 2023-09-27 12:11 | Emergency (ER) | payer OTHER, SELFPAY ==
[2023-09-27 12:20] VITALS: BP 126/63; PULSE 89; RESP 16; TEMP 37.3; O2SAT 100
--- NOTE | 2023-09-27 12:49 | ED.URI ---
HPI - URI/Sore Throat General Chief Complaint: Upper Respiratory Infection Stated Complaint: throat/burnt roof of mouth Time Seen by Provider: 09/27/23 12:49 Source: patient, family, RN notes reviewed and old records reviewed Mode of arrival: ambulatory (walker) Limitations: no limitations History of Present Illness HPI Narrative: 83 year old female who presents to [facility] care accompanied by family member with complaints of burning the roof of her mouth on some hot mashed potatoes on Monday and then on Monday she developed cough, sinus congestion and drainage, ear pain, and sore throat. Patient reports that she has been gargling with salt water and taking Cloroseptic spray. Patient states her throat is really sore and it is paiinful to swallow. Patient does have a red growth on palate that patient reports has been there for some time. MD elicited complaint: cough, sore throat, rhinorrhea, nasal congestion and other (ear pain) Onset (ago): day(s) (4) Pain scale (0-10): 10 Able to tolerate fluids by mouth: Yes Exacerbating factors: swallowing Treatments prior to arrival: other (chloroseptic spray) Related Data Allergies Allergy/AdvReac Type Severity Reaction Status Date / Time alendronate sodium Allergy Severe Severe Verified 09/27/23 12:56 joint pain wheat Allergy Mild Abdominal Verified 09/27/23 12:56 Pain acetaminophen [From Tylenol] AdvReac Mild Gastrointestinal Verified 09/27/23 12:56 Upset Topical E Allergy Intermediate Blister Uncoded 06/26/23 13:23 Review of Systems Review of Systems: CONSTITUTIONAL: Reports malaise, chills, sweats, or fever. EYES: Denies visual changes, redness, or discharge. ENT: Reports rhinorrhea, congestion, sinus pain, otalgia and sore throat. CARDIOVASCULAR: Denies chest pain, palpitations, or edema. RESPIRATORY: Reports cough.? Denies dyspnea. GASTROINTESTINAL: Denies abdominal pain, nausea, vomiting, diarrhea SKIN: Denies rash or itching. MUSCULOSKELETAL: Denies myalgia. NEUROLOGIC: Denies headache. All systems reviewed & are unremarkable except as noted in HPI and below PMFSH Past Medical History Medical History LITA positive Arthritis Closed fracture of tibial plateau (~09/2021) Colitis Generalized osteoarthritis of multiple sites Histoplasmosis pneumonia History of deep venous thrombosis (~1987) RLE History of lupus Hyperlipidemia LDL goal <100 Osteoporosis (2008) Rheumatoid arthritis Ruptured varicose vein Surgically repaired. Undifferentiated connective tissue disease (2018) Vitamin D deficiency Surgical History Surgical History History of appendectomy (1986) History of carpal tunnel release of both wrists (1973) History of cholecystectomy History of dilatation and curettage (Unknown) Approx '[address] Orellana and Dr. Edward repectively. History of foot surgery Vein in R foot, approx 2019, Dr. Esparza History of hysterectomy (1986) History of lumbosacral spine surgery (03/2011) History of oophorectomy (Unknown) History of repair of right rotator cuff (~1990) History of total right knee replacement (~06/07/22) S/P total knee arthroplasty Family History Family History Mother Family history of malignant neoplasm of breast in first degree relative, Onset Age: 70 Family history of arthritis Sibling Family history of arthritis Acute myocardial infarction Father Pneumonia Other Carcinoma of colon Diabetes mellitus Family history of cardiovascular disease Family history of malignant neoplasm Heart disease Social History Social History Social History: Surrogate decision maker: Veronica Baig or Bella Estuardo, daughters. Code status: Do not resuscitate. Caffeine- none Smoking status: Never smoker Al
== END 2023-09-27 13:10 | disposition home or self-care (01) ==
PROVIDERS: Emergency Provider Registered Nurse; PCP Family Medicine
DX: J06.9 Acute upper respiratory infection, unspecified (principal); J02.9 Acute pharyngitis, unspecified; Z20.822 Contact with and (suspected) exposure to COVID-19; E78.5 Hyperlipidemia, unspecified; M81.0 Age-related osteoporosis without current pathological fracture; E55.9 Vitamin D deficiency, unspecified; M15.9 Polyosteoarthritis, unspecified; Z96.651 Presence of right artificial knee joint
CPT/HCPCS: 87081; 87426; 87804; 87880; 99213; G0463

== ENCOUNTER 2023-12-13 08:43 | Outpatient (CLI) | payer OTHER, SELFPAY ==
--- NOTE | ~2023-12-13 | CT_ITS ---
EXAMINATION: CT soft tissue neck w con DATE: 12/13/2023 09:29 INDICATION: Right tonsillar mass. TECHNIQUE: Computed tomography (CT) of the neck was performed with 75 mL Omnipaque-350 intravenous co ntrast. Automated exposure control and iterative reconstruction technique were employed. The dose-jayson gth product was 198.95 mGy-cm. COMPARISON: None FINDINGS: There are nodules in the thyroid measuring up to 11 mm, likely not clinically significant. There are no pathologically enlarged lymph nodes. Lingual tonsil is larger on the right. There is mil d plaque in proximal right internal carotid artery with 0% stenosis relative to normal distal artery lumen diameter. There are likely changes of ocular lens replacement surgeries. There is mild mucosal thickening in the paranasal sinuses. The mastoid air cells are normal. There is severe cervical spond ylosis. IMPRESSION: 1. Asymmetric lingual tonsil, which is larger on the right, most likely a normal variant. No lymphade nopathy to suggest malignancy. Reviewed, dictated and finalized at location A. IMPRESSION: 1. Asymmetric lingual tonsil, which is larger on the right, most likely a julio cesar l variant. No lymphadenopathy to suggest malignancy.
[2023-12-13 09:23] LABS: Estimated Glomerular Filt Rate > 60
== END 2023-12-13 08:44 | disposition home or self-care (01) ==
PROVIDERS: PCP Family Medicine; Visit Provider Otolaryngology
DX: J35.8 Other chronic diseases of tonsils and adenoids (principal); J31.0 Chronic rhinitis; K21.9 Gastro-esophageal reflux disease without esophagitis
CPT/HCPCS: 70491; Q9967

== ENCOUNTER 2024-07-24 12:27 | Emergency (ER) | payer OTHER, SELFPAY ==
--- NOTE | ~2024-07-24 | CT_ITS ---
EXAMINATION: CT abdomen pelvis w con DATE: 07/24/2024 16:43 INDICATION: abd pain, diarrhea TECHNIQUE: Computed tomography (CT) of the abdomen and pelvis was performed with 100 mL Omnipaque-350 intravenous contrast. Automated exposure control and iterative reconstruction technique were employe d. The dose-length product was 186.12 mGy-cm. COMPARISON: 04/02/2023, 01/27/2020. FINDINGS: Lower thorax: Stable granulomas. Liver: Multiple simple cysts. Biliary/Gallbladder: Gallbladder is absent. Stable mild intra and extrahepatic bile duct dilation lik katie secondary to cholecystectomy Pancreas: No mass or duct dilation. Spleen: Normal. Adrenals:No mass. Kidneys: No suspicious mass, obstructing stone, or hydronephrosis. Stable right renal cysts. GI tract: Moderate distal esophageal and gastric wall edema. Scattered areas of mild descending colon ic and sigmoid wall edema noting that the large bowel is difficult to confidently trace in its entire ty. No small or large bowel dilation. Appendix not confidently visualized Mesentery/Peritoneum: No ascites, mass, or free air. Retroperitoneum: No mass. Atherosclerotic abdominal aortic and/or arterial calcifications. Pelvis: Empty urinary bladder which limits evaluation. Absent uterus. Bilateral ovaries not visualize d. Soft Tissues: Small left inguinal hernia containing fat and marginal herniation of a small amount of nonobstructed small bowel. Bones: No acute osseous finding. Uncomplicated L4-5 posterior fusion hardware. IMPRESSION: Moderate esophagitis/gastritis. Mild descending colonic and sigmoid wall edema may reflect colitis in the appropriate clinical contex t. Reviewed, dictated and finalized at location [facility]. [facility] [employer] [facility] IMPRESSION: Moderate esophagitis/gastritis. Mild descending colonic and sigmoid wall edema may reflect colitis in the appro priate clinical context.
[2024-07-24 12:28] VITALS: BP 147/72; PULSE 64; RESP 18; TEMP 36.4; O2SAT 94
--- NOTE | 2024-07-24 14:18 | ED.NAVMDI ---
HPI - Nausea/Vomiting/Diarrhea General Chief complaint: Nausea/Vomiting/Diarrhea <HUAN Boo Last Filed: 07/24/24 14:23> Stated complaint: diarrhea <HUAN Boo Last Filed: 07/24/24 14:23> Time Seen by Provider: 07/24/24 14:18 <HUAN Boo Last Filed: 07/24/24 14:23> Focused HPI: Patient is an 84 y/o female who presents to the ED with c/o diarrhea. Patient reports diarrhea began on Monday. Reported having multiple episodes of BM per day. C/o diffuse pain in her abdomen, worst in RLQ, radiating around to her back. Denies N/V, fevers, dysuria, hematuria. Does note that her urine has been dark in color. She has had decreased PO intake. GENERAL: Elderly, thin/frail, and in no acute distress. HEAD: Normocephalic, atraumatic. CHEST: Clear to auscultation. ?No respiratory distress. HEART: Regular rate and rhythm.? ABD: Mild diffuse tenderness. Normoactive BS NEURO: ?Alert and oriented x3. Patient screened in triage and initial orders placed.? ?Additional care and disposition to be based upon?diagnostic testing and treatment. <HUAN Boo Last Filed: 07/24/24 14:23> Source: patient <HUAN Boo Last Filed: 07/24/24 14:23> Mode of arrival: ambulatory <HUAN Boo Last Filed: 07/24/24 14:23> Limitations: no limitations <HUAN Boo Last Filed: 07/24/24 14:23> History of Present Illness HPI Narrative: Agree with the above with the following additions/corrections: Diarrhea the past 5 days with multiple episodes per day. No appreciable blood in the stool. Denies any nausea or vomiting. She has been having generalized abdominal cramps. She passed flatus this morning. She states she did not have a bowel movement this morning but when she attempted to wipe she had yellow liquid on the toilet paper. Patient did recently have antibiotics as she had to take a very short course of amoxicillin, 4 tablets prior to a cavity being drilled and it was after she started taking these that her symptoms developed. No recent travel. She does receive routine colonoscopies including her most recent 1 which occurred in September 2023 with her curriculum coordinator Dr. Jack in [facility]. She states it was unable to be fully completed because her GI doctor told her her colon looks like an accordian. She states that she did have 2 polyps removed but does not know the results. Urgent care had told her something about high triglycerides and she is asking if araya frying a hamburger wound be considered fatty foods because she thinks that you would have to calzada it in lard for it to count as fatty/bad for you. <Jacquelyn Bynum MD - Last Filed: 07/24/24 18:38> Related Data Home medications: Home Medications ?Medication ?Instructions ?Recorded ?Confirmed ?Last Taken ?Type cyanocobalamin (B12)-cobamamide lesley sublingual 11/27/23 06/26/24 Unknown History 5,000 mcg-100 mcg sublingual lozenge (B12) lactobacillus combination no.9 4 4,000 mmu cells PO DAILY 11/27/23 06/26/24 Unknown History billion cell capsule (Adult 50 Plus Probiotic) magnesium oxide 200 mg PO DAILY 06/26/24 06/26/24 Unknown History selenium 50 mcg tablet 50 mcg PO DAILY 06/26/24 06/26/24 Unknown History zinc acetate 50 mg (zinc) capsule 50 mg PO DAILY 06/26/24 06/26/24 Unknown History (Galzin) <Tanya Villalobos PA-C - Last Filed: 07/24/24 14:23> Allergies/Adverse reactions: Allergies Allergy/AdvReac Type Severity Reaction Status Date / Time alendronate sodium Allergy Severe Severe Verified 07/24/24 12:27 joint pain wheat Allergy Mild Abdominal Verified 07/24/24 12:27 Pain acetaminophen (From Tylenol) AdvReac Mild Gastrointestinal Verified 07/24/24 12:27 Upset Topical E Allergy Intermediate Blister Uncoded 07/24/24 12:27 <Tanya Villalobos PA-C - Last Filed: 07/24/24 14:23> [facility] Past Medical History Medical History: Medical History History of lupus Rheumatoid arthritis History of deep venous thrombosis (~1987) RLE Closed fracture of tibial plateau (~09/2021) Vitamin D deficiency Ruptured varicose vein Surgically repaired. 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 Esparza History of cholecystectomy History of repair of right rotator cuff (~1990) History of hysterectomy (1986) History of dilatation and curettage (Unknown) Approx '[address] Orellana and Dr. Yarbroughint repectively. History of lumbosacral spine surgery (03/2011) History of oophorectomy (Unknown) History of appendectomy (1986) History of carpal tunnel release of both wrists (1973) <Tanya Villalobos PA-C - Last Filed: 07/24/24 14:23> Family History Family History: Family History Mother Family history of malignant neoplasm of breast in first degree relative, Onset Age: 70 Family history of arthritis Sibling Family history of arthritis Acute myocardial infarction Father Pneumonia Other Carcinoma of colon Diabetes mellitus Family history of cardiovascular disease Family history of malignant neoplasm Heart disease <Tanya Villalobos PA-C - Last Filed: 07/24/24 14:23> Social History Social History: Social History Social History: Surrogate decision maker: Veronica Baig or Bella Marte, rachel. Code status: Do not resuscitate. Caffeine- none Smoking status: Never smoker Alcohol intake: never Substance use: never Substance use type: does not use Lack of Transportation: YES Lack of Food: Never True Current Housing: I Have Housing Concerned About Future Housing: No Difficulty Paying Gas/Electric Bills: No Difficulty Paying for Meds: No Currently Unemployed: No Education: High School Diploma/GED Difficulty w/ Childcare or Family Care: No Living arrangements: alone Occupation/Education: retired Gender identity (if verbalized by the patient): Female Sexual Orientation (if Verbalized by the Patient): Straight or Heterosexual Spiritual care concerns: No <Tanya Villalobos PA-C - Last Filed: 07/24/24 14:23> Exam Narrative: GENERAL: Well-appearing, well-nourished, and in no acute distress. HEAD: Normocephalic, atraumatic. EYES: Non injected, non icteric ENT: Nares clear, no rhinorrhea or epistaxis. Tacky mucous membranes. NECK: Supple. CHEST: Speaking in full sentences. No respiratory distress. HEART: Regular rate and rhythm. . ABDOMEN: Soft, nondistended. Nontender palpation throughout. No rigidity or guarding. EXTREMITIES: Normal range of motion. No lower extremity edema. SKIN: Warm, dry, no rash. NEURO: No focal deficits. Alert and oriented x3. PSYCH: Normal mood and affect. <Jacquelyn Bynum MD - Last Filed: 07/24/24 18:38> Course Vital Signs Vital signs: Vital Signs Temperature 97.6 F 07/24/24 12:28 Pulse Rate 64 07/24/24 12:28 Respiratory Rate 18 07/24/24 12:28 Blood Pressure 147/72 H 07/24/24 12:28 Pulse Oximetry 94 07/24/24 12:28 Oxygen Delivery Room Air 07/24/24 12:28 Temperature 97.6 F 07/24/24 12:28 Pulse Rate 73 07/24/24 16:51 Respiratory Rate 18 07/24/24 16:51 Blood Pressure 132/74 07/24/24 16:51 Pulse Oximetry 100 07/24/24 16:51 Oxygen Delivery Room Air 07/24/24 12:28 <Tanya Villalobos PA-C - Last Filed: 07/24/24 14:23> Vital Signs Temperature 97.6 F 07/24/24 12:28 Pulse Rate 64 07/24/24 12:28 Respiratory Rate 18 07/24/24 12:28 Blood Pressure 147/72 H 07/24/24 12:28 Pulse Oximetry 94 07/24/24 12:28 Oxygen Delivery Room Air 07/24/24 12:28 Temperature 97.6 F 07/24/24 12:28 Pulse Rate 73 07/24/24 16:51 Respiratory Rate 18 07/24/24 16:51 Blood Pressure 132/74 07/24/24 16:51 Pulse Oximetry 100 07/24/24 16:51 Oxygen Delivery Room Air 07/24/24 12:28 <Jacquelyn Bynum MD - Last Filed: 07/24/24 18:38> MDM - Nausea/Vomiting/Diarrhea MDM Narrative Medical decision making narrative: MSE by JAKE in triage. <Tanya Villalobos PA-C - Last Filed: 07/24/24 14:23> MSE by JAKE in triage. Patient presents with diarrhea of 5 days duration multiple episodes per day. In the emergency department she is afebrile with vital signs that are acceptable although with very mild hypertension. The differential for acute ( less than 14d) diarrhea includes infectious etiologies (viral, preformed toxins, toxins formed after colonization, invasive bacteria, and parasites), medications, inflammatory causes (IBD, radiation enteritis, ischemic colitis, diverticulitis), malabsorption, secretory causes, or motility disorders. RBCs on urinalysis but otherwise without signs of infection. Some evidence of possible colitis on CT but will avoid administering antibiotics given she is overall well appearing and has a benign abdominal exam and antibiotics are potentially likely to worsen diarrhea. Patient has been unable to produce a stool sample and has been in the emergency department for over 5-1/2 hours, felt less likely to be C difficile as a result. Will discharge. <Jacquelyn Bynum MD - Last Filed: 07/24/24 18:38> Differential Diagnosis Differential diagnosis: Likely food poisoning, gastroenteritis, clostridium difficile infection and dehydration <Jacquelyn Bynum MD - Last Filed: 07/24/24 18:38> Lab Data Attestation: I reviewed the patient's lab results. <aJcquelyn Bynum MD - Last Filed: 07/24/24 18:38> Lab results narrative: No leukocytosis. Normal renal function <Jacquelyn Bynum MD - Last Filed: 07/24/24 18:38> Result diagrams: 07/24/24 14:31 07/24/24 14:31 <Tanya Villalobos PA-C - Last Filed: 07/24/24 14:23> Labs: Lab Results 07/24/24 07/24/24 07/24/24 Range/Units 14:31 14:31 14:31 WBC 6.5 (4.5-10.0) K/mm3 RBC 4.48 (4.2-5.4) M/mm3 Hgb 13.1 (12.0-15.0) g/dL Hct 40.0 (37.0-47.0) % MCV 89.3 (80-100) fl MCH 29.2 (26-34) pg MCHC 32.8 (32-36) g/dl RDW 14.2 (11.5-14.5) % Plt Count 206 (150-375) k/mm3 MPV 10.1 (7.4-10.4) fl Immature Gran % (Auto) 0.2 (0-0.5) % Neut % (Auto) 65.0 (45.5-73.1) % Lymph % (Auto) 26.7 (18.3-44.2) % [place] % (Auto) 7.0 (2.6-8.5) % Eos % (Auto) 0.6 (0-4.4) % Baso % (Auto) 0.5 (0.2-1.2) % Lymph # (Auto) 1.72 (0.9-3.2) K/mm3 [place] # (Auto) 0.5 (0.1-0.6) K/mm3 Eos # (Auto) 0.0 (0-0.3) K/mm3 Baso # (Auto) 0.0 (0.0-0.1) K/mm3 Abs Immat Gran (auto) 0.01 (0.00-0.031) K/mm3 Absolute Neuts (auto) 4.2 (1.3-6.7) K/mm3 Absolute Nucleated RBC 0.000 (0.0-0.012) K/mm3 Nucleated RBC % 0.0 (0.0-0.2) % Sodium 137 Cancelled (137-145) mmol/L Potassium 3.8 Cancelled (3.4-5.0) mmol/L Chloride 106 (98-107) mmol/L Carbon Dioxide (22-30) mmol/L Anion Gap (4-12) mmol/L BUN (7-17) mg/dL Creatinine (0.7-1.0) mg/dL Estim Creat Clear Calc Estimated GFR (59 - ) Glucose (65-110) mg/dL Lactic Acid (0.7-2.0) mmol/L Calcium (8.4-10.2) mg/dL Magnesium (1.6-2.3) mg/dL Total Bilirubin (0.2-1.3) mg/dL AST (14-36) U/L ALT (6-35) U/L Alkaline Phosphatase (38-126) U/L Total Protein (6.3-8.2) g/dL Albumin (3.5-5.1) g/dL Lipase (23-300) U/L Urine Color (Yellow) Urine Appearance (Clear) Urine pH (5.0-9.0) Ur Specific [place] (1.001-1.035) Urine Protein (Negative) mg/dL Urine Glucose (UA) (Negative) mg/dL Urine Ketones (Negative) mg/dL Ur Blood (Man) (Negative) Urine Nitrate (Negative) Urine Bilirubin (Negative) Urine Urobilinogen (<2.0) mg/dL Leukocyte Esterase Rfl (Negative) ARSENIO/UL Urine RBC (0-2) /hpf Urine WBC (0-3) /hpf Ur Squamous Epith Cells (Few) /hpf Urine Bacteria /hpf Urine Casts Influenza A (RT-PCR) (Negative) Influenza B (RT-PCR) (Negative) RSV (RT-PCR) (Negative) SARS-CoV-2 RNA (RT-PCR) (Negative) 07/24/24 07/24/24 07/24/24 Range/Units 14:31 14:31 14:31 WBC (4.5-10.0) K/mm3 RBC (4.2-5.4) M/mm3 Hgb (12.0-15.0) g/dL Hct (37.0-47.0) % MCV (80-100) fl MCH (26-34) pg MCHC (32-36) g/dl RDW (11.5-14.5) % Plt Count (150-375) k/mm3 MPV (7.4-10.4) fl Immature Gran % (Auto) (0-0.5) % Neut % (Auto) (45.5-73.1) % Lymph % (Auto) (18.3-44.2) % [place] % (Auto) (2.6-8.5) % Eos % (Auto) (0-4.4) % Baso % (Auto) (0.2-1.2) % Lymph # (Auto) (0.9-3.2) K/mm3 [place] # (Auto) (0.1-0.6) K/mm3 Eos # (Auto) (0-0.3) K/mm3 Baso # (Auto) (0.0-0.1) K/mm3 Abs Immat Gran (auto) (0.00-0.031) K/mm3 Absolute Neuts (auto) (1.3-6.7) K/mm3 Absolute Nucleated RBC (0.0-0.012) K/mm3 Nucleated RBC % (0.0-0.2) % Sodium (137-145) mmol/L Potassium (3.4-5.0) mmol/L Chloride Cancelled (98-107) mmol/L Carbon Dioxide 29 Cancelled (22-30) mmol/L Anion Gap 2 L Cancelled (4-12) mmol/L BUN 14 D (7-17) mg/dL Creatinine (0.7-1.0) mg/dL Estim Creat Clear Calc Estimated GFR (59 - ) Glucose (65-110) mg/dL Lactic Acid (0.7-2.0) mmol/L Calcium (8.4-10.2) mg/dL Magnesium (1.6-2.3) mg/dL Total Bilirubin (0.2-1.3) mg/dL AST (14-36) U/L ALT (6-35) U/L Alkaline Phosphatase (38-126) U/L Total Protein (6.3-8.2) g/dL Albumin (3.5-5.1) g/dL Lipase (23-300) U/L Urine Color (Yellow) Urine Appearance (Clear) Urine pH (5.0-9.0) Ur Specific [place] (1.001-1.035) Urine Protein (Negative) mg/dL Urine Glucose (UA) (Negative) mg/dL Urine Ketones (Negative) mg/dL Ur Blood (Man) (Negative) Urine Nitrate (Negative) Urine Bilirubin (Negative) Urine Urobilinogen (<2.0) mg/dL Leukocyte Esterase Rfl (Negative) ARSENIO/UL Urine RBC (0-2) /hpf Urine WBC (0-3) /hpf Ur Squamous Epith Cells (Few) /hpf Urine Bacteria /hpf Urine Casts Influenza A (RT-PCR) (Negative) Influenza B (RT-PCR) (Negative) RSV (RT-PCR) (Negative) SARS-CoV-2 RNA (RT-PCR) (Negative) 07/24/24 07/24/24 07/24/24 Range/Units 14:31 14:31 14:31 WBC (4.5-10.0) K/mm3 RBC (4.2-5.4) M/mm3 Hgb (12.0-15.0) g/dL Hct (37.0-47.0) % MCV (80-100) fl MCH (26-34) pg MCHC (32-36) g/dl RDW (11.5-14.5) % Plt Count (150-375) k/mm3 MPV (7.4-10.4) fl Immature Gran % (Auto) (0-0.5) % Neut % (Auto) (45.5-73.1) % Lymph % (Auto) (18.3-44.2) % [place] % (Auto) (2.6-8.5) % Eos % (Auto) (0-4.4) % Baso % (Auto) (0.2-1.2) % Lymph # (Auto) (0.9-3.2) K/mm3 [place] # (Auto) (0.1-0.6) K/mm3 Eos # (Auto) (0-0.3) K/mm3 Baso # (Auto) (0.0-0.1) K/mm3 Abs Immat Gran (auto) (0.00-0.031) K/mm3 Absolute Neuts (auto) (1.3-6.7) K/mm3 Absolute Nucleated RBC (0.0-0.012) K/mm3 Nucleated RBC % (0.0-0.2) % Sodium (137-145) mmol/L Potassium (3.4-5.0) mmol/L Chloride (98-107) mmol/L Carbon Dioxide (22-30) mmol/L Anion Gap (4-12) mmol/L BUN Cancelled (7-17) mg/dL Creatinine 0.50 L Cancelled (0.7-1.0) mg/dL Estim Creat Clear Calc Not Reportable Cancelled Estimated GFR > 60 (59 - ) Glucose (65-110) mg/dL Lactic Acid (0.7-2.0) mmol/L Calcium (8.4-10.2) mg/dL Magnesium (1.6-2.3) mg/dL Total Bilirubin (0.2-1.3) mg/dL AST (14-36) U/L ALT (6-35) U/L Alkaline Phosphatase (38-126) U/L Total Protein (6.3-8.2) g/dL Albumin (3.5-5.1) g/dL Lipase (23-300) U/L Urine Color (Yellow) Urine Appearance (Clear) Urine pH (5.0-9.0) Ur Specific [place] (1.001-1.035) Urine Protein (Negative) mg/dL Urine Glucose (UA) (Negative) mg/dL Urine Ketones (Negative) mg/dL Ur Blood (Man) (Negative) Urine Nitrate (Negative) Urine Bilirubin (Negative) Urine Urobilinogen (<2.0) mg/dL Leukocyte Esterase Rfl (Negative) ARSENIO/UL Urine RBC (0-2) /hpf Urine WBC (0-3) /hpf Ur Squamous Epith Cells (Few) /hpf Urine Bacteria /hpf Urine Casts Influenza A (RT-PCR) (Negative) Influenza B (RT-PCR) (Negative) RSV (RT-PCR) (Negative) SARS-CoV-2 RNA (RT-PCR) (Negative) 07/24/24 07/24/24 07/24/24 Range/Units 14:31 14:31 14:31 WBC (4.5-10.0) K/mm3 RBC (4.2-5.4) M/mm3 Hgb (12.0-15.0) g/dL Hct (37.0-47.0) % MCV (80-100) fl MCH (26-34) pg MCHC (32-36) g/dl RDW (11.5-14.5) % Plt Count (150-375) k/mm3 MPV (7.4-10.4) fl Immature Gran % (Auto) (0-0.5) % Neut % (Auto) (45.5-73.1) % Lymph % (Auto) (18.3-44.2) % [place] % (Auto) (2.6-8.5) % Eos % (Auto) (0-4.4) % Baso % (Auto) (0.2-1.2) % Lymph # (Auto) (0.9-3.2) K/mm3 [place] # (Auto) (0.1-0.6) K/mm3 Eos # (Auto) (0-0.3) K/mm3 Baso # (Auto) (0.0-0.1) K/mm3 Abs Immat Gran (auto) (0.00-0.031) K/mm3 Absolute Neuts (auto) (1.3-6.7) K/mm3 Absolute Nucleated RBC (0.0-0.012) K/mm3 Nucleated RBC % (0.0-0.2) % Sodium (137-145) mmol/L Potassium (3.4-5.0) mmol/L Chloride (98-107) mmol/L Carbon Dioxide (22-30) mmol/L Anion Gap (4-12) mmol/L BUN (7-17) mg/dL Creatinine (0.7-1.0) mg/dL Estim Creat Clear Calc Estimated GFR Cancelled (59 - ) Glucose 88 Cancelled (65-110) mg/dL Lactic Acid 1.0 (0.7-2.0) mmol/L Calcium 10.5 H Cancelled (8.4-10.2) mg/dL Magnesium 2.0 (1.6-2.3) mg/dL Total Bilirubin 1.0 (0.2-1.3) mg/dL AST (14-36) U/L ALT (6-35) U/L Alkaline Phosphatase (38-126) U/L Total Protein (6.3-8.2) g/dL Albumin (3.5-5.1) g/dL Lipase (23-300) U/L Urine Color (Yellow) Urine Appearance (Clear) Urine pH (5.0-9.0) Ur Specific [place] (1.001-1.035) Urine Protein (Negative) mg/dL Urine Glucose (UA) (Negative) mg/dL Urine Ketones (Negative) mg/dL Ur Blood (Man) (Negative) Urine Nitrate (Negative) Urine Bilirubin (Negative) Urine Urobilinogen (<2.0) mg/dL Leukocyte Esterase Rfl (Negative) ARSENIO/UL Urine RBC (0-2) /hpf Urine WBC (0-3) /hpf Ur Squamous Epith Cells (Few) /hpf Urine Bacteria /hpf Urine Casts Influenza A (RT-PCR) (Negative) Influenza B (RT-PCR) (Negative) RSV (RT-PCR) (Negative) SARS-CoV-2 RNA (RT-PCR) (Negative) 07/24/24 07/24/24 07/24/24 Range/Units 14:31 14:31 14:31 WBC (4.5-10.0) K/mm3 RBC (4.2-5.4) M/mm3 Hgb (12.0-15.0) g/dL Hct (37.0-47.0) % MCV (80-100) fl MCH (26-34) pg MCHC (32-36) g/dl RDW (11.5-14.5) % Plt Count (150-375) k/mm3 MPV (7.4-10.4) fl Immature Gran % (Auto) (0-0.5) % Neut % (Auto) (45.5-73.1) % Lymph % (Auto) (18.3-44.2) % [place] % (Auto) (2.6-8.5) % Eos % (Auto) (0-4.4) % Baso % (Auto) (0.2-1.2) % Lymph # (Auto) (0.9-3.2) K/mm3 [place] # (Auto) (0.1-0.6) K/mm3 Eos # (Auto) (0-0.3) K/mm3 Baso # (Auto) (0.0-0.1) K/mm3 Abs Immat Gran (auto) (0.00-0.031) K/mm3 Absolute Neuts (auto) (1.3-6.7) K/mm3 Absolute Nucleated RBC (0.0-0.012) K/mm3 Nucleated RBC % (0.0-0.2) % Sodium (137-145) mmol/L Potassium (3.4-5.0) mmol/L Chloride (98-107) mmol/L Carbon Dioxide (22-30) mmol/L Anion Gap (4-12) mmol/L BUN (7-17) mg/dL Creatinine (0.7-1.0) mg/dL Estim Creat Clear Calc Estimated GFR (59 - ) Glucose (65-110) mg/dL Lactic Acid (0.7-2.0) mmol/L Calcium (8.4-10.2) mg/dL Magnesium (1.6-2.3) mg/dL Total Bilirubin Cancelled (0.2-1.3) mg/dL AST 35 Cancelled (14-36) U/L ALT 19 Cancelled (6-35) U/L Alkaline Phosphatase 104 (38-126) U/L Total Protein (6.3-8.2) g/dL Albumin (3.5-5.1) g/dL Lipase (23-300) U/L Urine Color (Yellow) Urine Appearance (Clear) Urine pH (5.0-9.0) Ur Specific [place] (1.001-1.035) Urine Protein (Negative) mg/dL Urine Glucose (UA) (Negative) mg/dL Urine Ketones (Negative) mg/dL Ur Blood (Man) (Negative) Urine Nitrate (Negative) Urine Bilirubin (Negative) Urine Urobilinogen (<2.0) mg/dL Leukocyte Esterase Rfl (Negative) ARSENIO/UL Urine RBC (0-2) /hpf Urine WBC (0-3) /hpf Ur Squamous Epith Cells (Few) /hpf Urine Bacteria /hpf Urine Casts Influenza A (RT-PCR) (Negative) Influenza B (RT-PCR) (Negative) RSV (RT-PCR) (Negative) SARS-CoV-2 RNA (RT-PCR) (Negative) 07/24/24 07/24/24 07/24/24 Range/Units 14:31 14:31 14:31 WBC (4.5-10.0) K/mm3 RBC (4.2-5.4) M/mm3 Hgb (12.0-15.0) g/dL Hct (37.0-47.0) % MCV (80-100) fl MCH (26-34) pg MCHC (32-36) g/dl RDW (11.5-14.5) % Plt Count (150-375) k/mm3 MPV (7.4-10.4) fl Immature Gran % (Auto) (0-0.5) % Neut % (Auto) (45.5-73.1) % Lymph % (Auto) (18.3-44.2) % [place] % (Auto) (2.6-8.5) % Eos % (Auto) (0-4.4) % Baso % (Auto) (0.2-1.2) % Lymph # (Auto) (0.9-3.2) K/mm3 [place] # (Auto) (0.1-0.6) K/mm3 Eos # (Auto) (0-0.3) K/mm3 Baso # (Auto) (0.0-0.1) K/mm3 Abs Immat Gran (auto) (0.00-0.031) K/mm3 Absolute Neuts (auto) (1.3-6.7) K/mm3 Absolute Nucleated RBC (0.0-0.012) K/mm3 Nucleated RBC % (0.0-0.2) % Sodium (137-145) mmol/L Potassium (3.4-5.0) mmol/L Chloride (98-107) mmol/L Carbon Dioxide (22-30) mmol/L Anion Gap (4-12) mmol/L BUN (7-17) mg/dL Creatinine (0.7-1.0) mg/dL Estim Creat Clear Calc Estimated GFR (59 - ) Glucose (65-110) mg/dL Lactic Acid (0.7-2.0) mmol/L Calcium (8.4-10.2) mg/dL Magnesium (1.6-2.3) mg/dL Total Bilirubin (0.2-1.3) mg/dL AST (14-36) U/L ALT (6-35) U/L Alkaline Phosphatase Cancelled (38-126) U/L Total Protein 8.0 Cancelled (6.3-8.2) g/dL Albumin 4.5 Cancelled (3.5-5.1) g/dL Lipase 85 (23-300) U/L Urine Color (Yellow) Urine Appearance (Clear) Urine pH (5.0-9.0) Ur Specific [place] (1.001-1.035) Urine Protein (Negative) mg/dL Urine Glucose (UA) (Negative) mg/dL Urine Ketones (Negative) mg/dL Ur Blood (Man) (Negative) Urine Nitrate (Negative) Urine Bilirubin (Negative) Urine Urobilinogen (<2.0) mg/dL Leukocyte Esterase Rfl (Negative) ARSENIO/UL Urine RBC (0-2) /hpf Urine WBC (0-3) /hpf Ur Squamous Epith Cells (Few) /hpf Urine Bacteria /hpf Urine Casts Influenza A (RT-PCR) (Negative) Influenza B (RT-PCR) (Negative) RSV (RT-PCR) (Negative) SARS-CoV-2 RNA (RT-PCR) (Negative) 07/24/24 07/24/24 Range/Units 14:31 17:32 WBC (4.5-10.0) K/mm3 RBC (4.2-5.4) M/mm3 Hgb (12.0-15.0) g/dL Hct (37.0-47.0) % MCV (80-100) fl MCH (26-34) pg MCHC (32-36) g/dl RDW (11.5-14.5) % Plt Count (150-375) k/mm3 MPV (7.4-10.4) fl Immature Gran % (Auto) (0-0.5) % Neut % (Auto) (45.5-73.1) % Lymph % (Auto) (18.3-44.2) % [place] % (Auto) (2.6-8.5) % Eos % (Auto) (0-4.4) % Baso % (Auto) (0.2-1.2) % Lymph # (Auto) (0.9-3.2) K/mm3 [place] # (Auto) (0.1-0.6) K/mm3 Eos # (Auto) (0-0.3) K/mm3 Baso # (Auto) (0.0-0.1) K/mm3 Abs Immat Gran (auto) (0.00-0.031) K/mm3 Absolute Neuts (auto) (1.3-6.7) K/mm3 Absolute Nucleated RBC (0.0-0.012) K/mm3 Nucleated RBC % (0.0-0.2) % Sodium (137-145) mmol/L Potassium (3.4-5.0) mmol/L Chloride (98-107) mmol/L Carbon Dioxide (22-30) mmol/L Anion Gap (4-12) mmol/L BUN (7-17) mg/dL Creatinine (0.7-1.0) mg/dL Estim Creat Clear Calc Estimated GFR (59 - ) Glucose (65-110) mg/dL Lactic Acid (0.7-2.0) mmol/L Calcium (8.4-10.2) mg/dL Magnesium (1.6-2.3) mg/dL Total Bilirubin (0.2-1.3) mg/dL AST (14-36) U/L ALT (6-35) U/L Alkaline Phosphatase (38-126) U/L Total Protein (6.3-8.2) g/dL Albumin (3.5-5.1) g/dL Lipase Cancelled (23-300) U/L Urine Color Yellow (Yellow) Urine Appearance Clear (Clear) Urine pH 6.0 (5.0-9.0) Ur Specific [place] > 1.045 H (1.001-1.035) Urine Protein Negative (Negative) mg/dL Urine Glucose (UA) Negative (Negative) mg/dL Urine Ketones 2+ H (Negative) mg/dL Ur Blood (Man) 1+ H (Negative) Urine Nitrate Negative (Negative) Urine Bilirubin Negative (Negative) Urine Urobilinogen 1.0 (<2.0) mg/dL Leukocyte Esterase Rfl Negative (Negative) ARSENIO/UL Urine RBC 3-5 H (0-2) /hpf Urine WBC 0-5 (0-3) /hpf Ur Squamous Epith Cells None seen (Few) /hpf Urine Bacteria None seen /hpf Urine Casts 0-2 Influenza A (RT-PCR) Negative (Negative) Influenza B (RT-PCR) Negative (Negative) RSV (RT-PCR) Negative (Negative) SARS-CoV-2 RNA (RT-PCR) Negative (Negative) <Tanya Villalobos PA-C - Last Filed: 07/24/24 14:23> Lab Results 07/24/24 07/24/24 07/24/24 Range/Units 14:31 14:31 14:31 WBC 6.5 (4.5-10.0) K/mm3 RBC 4.48 (4.2-5.4) M/mm3 Hgb 13.1 (12.0-15.0) g/dL Hct 40.0 (37.0-47.0) % MCV 89.3 (80-100) fl MCH 29.2 (26-34) pg MCHC 32.8 (32-36) g/dl RDW 14.2 (11.5-14.5) % Plt Count 206 (150-375) k/mm3 MPV 10.1 (7.4-10.4) fl Immature Gran % (Auto) 0.2 (0-0.5) % Neut % (Auto) 65.0 (45.5-73.1) % Lymph % (Auto) 26.7 (18.3-44.2) % [place] % (Auto) 7.0 (2.6-8.5) % Eos % (Auto) 0.6 (0-4.4) % Baso % (Auto) 0.5 (0.2-1.2) % Lymph # (Auto) 1.72 (0.9-3.2) K/mm3 [place] # (Auto) 0.5 (0.1-0.6) K/mm3 Eos # (Auto) 0.0 (0-0.3) K/mm3 Baso # (Auto) 0.0 (0.0-0.1) K/mm3 Abs Immat Gran (auto) 0.01 (0.00-0.031) K/mm3 Absolute Neuts (auto) 4.2 (1.3-6.7) K/mm3 Absolute Nucleated RBC 0.000 (0.0-0.012) K/mm3 Nucleated RBC % 0.0 (0.0-0.2) % Sodium 137 Cancelled (137-145) mmol/L Potassium 3.8 Cancelled (3.4-5.0) mmol/L Chloride 106 (98-107) mmol/L Carbon Dioxide (22-30) mmol/L Anion Gap (4-12) mmol/L BUN (7-17) mg/dL Creatinine (0.7-1.0) mg/dL Estim Creat Clear Calc Estimated GFR (59 - ) Glucose (65-110) mg/dL Lactic Acid (0.7-2.0) mmol/L Calcium (8.4-10.2) mg/dL Magnesium (1.6-2.3) mg/dL Total Bilirubin (0.2-1.3) mg/dL AST (14-36) U/L ALT (6-35) U/L Alkaline Phosphatase (38-126) U/L Total Protein (6.3-8.2) g/dL Albumin (3.5-5.1) g/dL Lipase (23-300) U/L Urine Color (Yellow) Urine Appearance (Clear) Urine pH (5.0-9.0) Ur Specific [place] (1.001-1.035) Urine Protein (Negative) mg/dL Urine Glucose (UA) (Negative) mg/dL Urine Ketones (Negative) mg/dL Ur Blood (Man) (Negative) Urine Nitrate (Negative) Urine Bilirubin (Negative) Urine Urobilinogen (<2.0) mg/dL Leukocyte Esterase Rfl (Negative) ARSENIO/UL Urine RBC (0-2) /hpf Urine WBC (0-3) /hpf Ur Squamous Epith Cells (Few) /hpf Urine Bacteria /hpf Urine Casts Influenza A (RT-PCR) (Negative) Influenza B (RT-PCR) (Negative) RSV (RT-PCR) (Negative) SARS-CoV-2 RNA (RT-PCR) (Negative) 07/24/24 07/24/24 07/24/24 Range/Units 14:31 14:31 14:31 WBC (4.5-10.0) K/mm3 RBC (4.2-5.4) M/mm3 Hgb (12.0-15.0) g/dL Hct (37.0-47.0) % MCV (80-100) fl MCH (26-34) pg MCHC (32-36) g/dl RDW (11.5-14.5) % Plt Count (150-375) k/mm3 MPV (7.4-10.4) fl Immature Gran % (Auto) (0-0.5) % Neut % (Auto) (45.5-73.1) % Lymph % (Auto) (18.3-44.2) % [place] % (Auto) (2.6-8.5) % Eos % (Auto) (0-4.4) % Baso % (Auto) (0.2-1.2) % Lymph # (Auto) (0.9-3.2) K/mm3 [place] # (Auto) (0.1-0.6) K/mm3 Eos # (Auto) (0-0.3) K/mm3 Baso # (Auto) (0.0-0.1) K/mm3 Abs Immat Gran (auto) (0.00-0.031) K/mm3 Absolute Neuts (auto) (1.3-6.7) K/mm3 Absolute Nucleated RBC (0.0-0.012) K/mm3 Nucleated RBC % (0.0-0.2) % Sodium (137-145) mmol/L Potassium (3.4-5.0) mmol/L Chloride Cancelled (98-107) mmol/L Carbon Dioxide 29 Cancelled (22-30) mmol/L Anion Gap 2 L Cancelled (4-12) mmol/L BUN 14 D (7-17) mg/dL Creatinine (0.7-1.0) mg/dL Estim Creat Clear Calc Estimated GFR (59 - ) Glucose (65-110) mg/dL Lactic Acid (0.7-2.0) mmol/L Calcium (8.4-10.2) mg/dL Magnesium (1.6-2.3) mg/dL Total Bilirubin (0.2-1.3) mg/dL AST (14-36) U/L ALT (6-35) U/L Alkaline Phosphatase (38-126) U/L Total Protein (6.3-8.2) g/dL Albumin (3.5-5.1) g/dL Lipase (23-300) U/L Urine Color (Yellow) Urine Appearance (Clear) Urine pH (5.0-9.0) Ur Specific [place] (1.001-1.035) Urine Protein (Negative) mg/dL Urine Glucose (UA) (Negative) mg/dL Urine Ketones (Negative) mg/dL Ur Blood (Man) (Negative) Urine Nitrate (Negative) Urine Bilirubin (Negative) Urine Urobilinogen (<2.0) mg/dL Leukocyte Esterase Rfl (Negative) ARSENIO/UL Urine RBC (0-2) /hpf Urine WBC (0-3) /hpf Ur Squamous Epith Cells (Few) /hpf Urine Bacteria /hpf Urine Casts Influenza A (RT-PCR) (Negative) Influenza B (RT-PCR) (Negative) RSV (RT-PCR) (Negative) SARS-CoV-2 RNA (RT-PCR) (Negative) 07/24/24 07/24/24 07/24/24 Range/Units 14:31 14:31 14:31 WBC (4.5-10.0) K/mm3 RBC (4.2-5.4) M/mm3 Hgb (12.0-15.0) g/dL Hct (37.0-47.0) % MCV (80-100) fl MCH (26-34) pg MCHC (32-36) g/dl RDW (11.5-14.5) % Plt Count (150-375) k/mm3 MPV (7.4-10.4) fl Immature Gran % (Auto) (0-0.5) % Neut % (Auto) (45.5-73.1) % Lymph % (Auto) (18.3-44.2) % [place] % (Auto) (2.6-8.5) % Eos % (Auto) (0-4.4) % Baso % (Auto) (0.2-1.2) % Lymph # (Auto) (0.9-3.2) K/mm3 [place] # (Auto) (0.1-0.6) K/mm3 Eos # (Auto) (0-0.3) K/mm3 Baso # (Auto) (0.0-0.1) K/mm3 Abs Immat Gran (auto) (0.00-0.031) K/mm3 Absolute Neuts (auto) (1.3-6.7) K/mm3 Absolute Nucleated RBC (0.0-0.012) K/mm3 Nucleated RBC % (0.0-0.2) % Sodium (137-145) mmol/L Potassium (3.4-5.0) mmol/L Chloride (98-107) mmol/L Carbon Dioxide (22-30) mmol/L Anion Gap (4-12) mmol/L BUN Cancelled (7-17) mg/dL Creatinine 0.50 L Cancelled (0.7-1.0) mg/dL Estim Creat Clear Calc Not Reportable Cancelled Estimated GFR > 60 (59 - ) Glucose (65-110) mg/dL Lactic Acid (0.7-2.0) mmol/L Calcium (8.4-10.2) mg/dL Magnesium (1.6-2.3) mg/dL Total Bilirubin (0.2-1.3) mg/dL AST (14-36) U/L ALT (6-35) U/L Alkaline Phosphatase (38-126) U/L Total Protein (6.3-8.2) g/dL Albumin (3.5-5.1) g/dL Lipase (23-300) U/L Urine Color (Yellow) Urine Appearance (Clear) Urine pH (5.0-9.0) Ur Specific [place] (1.001-1.035) Urine Protein (Negative) mg/dL Urine Glucose (UA) (Negative) mg/dL Urine Ketones (Negative) mg/dL Ur Blood (Man) (Negative) Urine Nitrate (Negative) Urine Bilirubin (Negative) Urine Urobilinogen (<2.0) mg/dL Leukocyte Esterase Rfl (Negative) ARSENIO/UL Urine RBC (0-2) /hpf Urine WBC (0-3) /hpf Ur Squamous Epith Cells (Few) /hpf Urine Bacteria /hpf Urine Casts Influenza A (RT-PCR) (Negative) Influenza B (RT-PCR) (Negative) RSV (RT-PCR) (Negative) SARS-CoV-2 RNA (RT-PCR) (Negative) 07/24/24 07/24/24 07/24/24 Range/Units 14:31 14:31 14:31 WBC (4.5-10.0) K/mm3 RBC (4.2-5.4) M/mm3 Hgb (12.0-15.0) g/dL Hct (37.0-47.0) % MCV (80-100) fl MCH (26-34) pg MCHC (32-36) g/dl RDW (11.5-14.5) % Plt Count (150-375) k/mm3 MPV (7.4-10.4) fl Immature Gran % (Auto) (0-0.5) % Neut % (Auto) (45.5-73.1) % Lymph % (Auto) (18.3-44.2) % [place] % (Auto) (2.6-8.5) % Eos % (Auto) (0-4.4) % Baso % (Auto) (0.2-1.2) % Lymph # (Auto) (0.9-3.2) K/mm3 [place] # (Auto) (0.1-0.6) K/mm3 Eos # (Auto) (0-0.3) K/mm3 Baso # (Auto) (0.0-0.1) K/mm3 Abs Immat Gran (auto) (0.00-0.031) K/mm3 Absolute Neuts (auto) (1.3-6.7) K/mm3 Absolute Nucleated RBC (0.0-0.012) K/mm3 Nucleated RBC % (0.0-0.2) % Sodium (137-145) mmol/L Potassium (3.4-5.0) mmol/L Chloride (98-107) mmol/L Carbon Dioxide (22-30) mmol/L Anion Gap (4-12) mmol/L BUN (7-17) mg/dL Creatinine (0.7-1.0) mg/dL Estim Creat Clear Calc Estimated GFR Cancelled (59 - ) Glucose 88 Cancelled (65-110) mg/dL Lactic Acid 1.0 (0.7-2.0) mmol/L Calcium 10.5 H Cancelled (8.4-10.2) mg/dL Magnesium 2.0 (1.6-2.3) mg/dL Total Bilirubin 1.0 (0.2-1.3) mg/dL AST (14-36) U/L ALT (6-35) U/L Alkaline Phosphatase (38-126) U/L Total Protein (6.3-8.2) g/dL Albumin (3.5-5.1) g/dL Lipase (23-300) U/L Urine Color (Yellow) Urine Appearance (Clear) Urine pH (5.0-9.0) Ur Specific [place] (1.001-1.035) Urine Protein (Negative) mg/dL Urine Glucose (UA) (Negative) mg/dL Urine Ketones (Negative) mg/dL Ur Blood (Man) (Negative) Urine Nitrate (Negative) Urine Bilirubin (Negative) Urine Urobilinogen (<2.0) mg/dL Leukocyte Esterase Rfl (Negative) ARSNEIO/UL Urine RBC (0-2) /hpf Urine WBC (0-3) /hpf Ur Squamous Epith Cells (Few) /hpf Urine Bacteria /hpf Urine Casts Influenza A (RT-PCR) (Negative) Influenza B (RT-PCR) (Negative) RSV (RT-PCR) (Negative) SARS-CoV-2 RNA (RT-PCR) (Negative) 07/24/24 07/24/24 07/24/24 Range/Units 14:31 14:31 14:31 WBC (4.5-10.0) K/mm3 RBC (4.2-5.4) M/mm3 Hgb (12.0-15.0) g/dL Hct (37.0-47.0) % MCV (80-100) fl MCH (26-34) pg MCHC (32-36) g/dl RDW (11.5-14.5) % Plt Count (150-375) k/mm3 MPV (7.4-10.4) fl Immature Gran % (Auto) (0-0.5) % Neut % (Auto) (45.5-73.1) % Lymph % (Auto) (18.3-44.2) % [place] % (Auto) (2.6-8.5) % Eos % (Auto) (0-4.4) % Baso % (Auto) (0.2-1.2) % Lymph # (Auto) (0.9-3.2) K/mm3 [place] # (Auto) (0.1-0.6) K/mm3 Eos # (Auto) (0-0.3) K/mm3 Baso # (Auto) (0.0-0.1) K/mm3 Abs Immat Gran (auto) (0.00-0.031) K/mm3 Absolute Neuts (auto) (1.3-6.7) K/mm3 Absolute Nucleated RBC (0.0-0.012) K/mm3 Nucleated RBC % (0.0-0.2) % Sodium (137-145) mmol/L Potassium (3.4-5.0) mmol/L Chloride (98-107) mmol/L Carbon Dioxide (22-30) mmol/L Anion Gap (4-12) mmol/L BUN (7-17) mg/dL Creatinine (0.7-1.0) mg/dL Estim Creat Clear Calc Estimated GFR (59 - ) Glucose (65-110) mg/dL Lactic Acid (0.7-2.0) mmol/L Calcium (8.4-10.2) mg/dL Magnesium (1.6-2.3) mg/dL Total Bilirubin Cancelled (0.2-1.3) mg/dL AST 35 Cancelled (14-36) U/L ALT 19 Cancelled (6-35) U/L Alkaline Phosphatase 104 (38-126) U/L Total Protein (6.3-8.2) g/dL Albumin (3.5-5.1) g/dL Lipase (23-300) U/L Urine Color (Yellow) Urine Appearance (Clear) Urine pH (5.0-9.0) Ur Specific [place] (1.001-1.035) Urine Protein (Negative) mg/dL Urine Glucose (UA) (Negative) mg/dL Urine Ketones (Negative) mg/dL Ur Blood (Man) (Negative) Urine Nitrate (Negative) Urine Bilirubin (Negative) Urine Urobilinogen (<2.0) mg/dL Leukocyte Esterase Rfl (Negative) ARSENIO/UL Urine RBC (0-2) /hpf Urine WBC (0-3) /hpf Ur Squamous Epith Cells (Few) /hpf Urine Bacteria /hpf Urine Casts Influenza A (RT-PCR) (Negative) Influenza B (RT-PCR) (Negative) RSV (RT-PCR) (Negative) SARS-CoV-2 RNA (RT-PCR) (Negative) 07/24/24 07/24/24 07/24/24 Range/Units 14:31 14:31 14:31 WBC (4.5-10.0) K/mm3 RBC (4.2-5.4) M/mm3 Hgb (12.0-15.0) g/dL Hct (37.0-47.0) % MCV (80-100) fl MCH (26-34) pg MCHC (32-36) g/dl RDW (11.5-14.5) % Plt Count (150-375) k/mm3 MPV (7.4-10.4) fl Immature Gran % (Auto) (0-0.5) % Neut % (Auto) (45.5-73.1) % Lymph % (Auto) (18.3-44.2) % [place] % (Auto) (2.6-8.5) % Eos % (Auto) (0-4.4) % Baso % (Auto) (0.2-1.2) % Lymph # (Auto) (0.9-3.2) K/mm3 [place] # (Auto) (0.1-0.6) K/mm3 Eos # (Auto) (0-0.3) K/mm3 Baso # (Auto) (0.0-0.1) K/mm3 Abs Immat Gran (auto) (0.00-0.031) K/mm3 Absolute Neuts (auto) (1.3-6.7) K/mm3 Absolute Nucleated RBC (0.0-0.012) K/mm3 Nucleated RBC % (0.0-0.2) % Sodium (137-145) mmol/L Potassium (3.4-5.0) mmol/L Chloride (98-107) mmol/L Carbon Dioxide (22-30) mmol/L Anion Gap (4-12) mmol/L BUN (7-17) mg/dL Creatinine (0.7-1.0) mg/dL Estim Creat Clear Calc Estimated GFR (59 - ) Glucose (65-110) mg/dL Lactic Acid (0.7-2.0) mmol/L Calcium (8.4-10.2) mg/dL Magnesium (1.6-2.3) mg/dL Total Bilirubin (0.2-1.3) mg/dL AST (14-36) U/L ALT (6-35) U/L Alkaline Phosphatase Cancelled (38-126) U/L Total Protein 8.0 Cancelled (6.3-8.2) g/dL Albumin 4.5 Cancelled (3.5-5.1) g/dL Lipase 85 (23-300) U/L Urine Color (Yellow) Urine Appearance (Clear) Urine pH (5.0-9.0) Ur Specific [place] (1.001-1.035) Urine Protein (Negative) mg/dL Urine Glucose (UA) (Negative) mg/dL Urine Ketones (Negative) mg/dL Ur Blood (Man) (Negative) Urine Nitrate (Negative) Urine Bilirubin (Negative) Urine Urobilinogen (<2.0) mg/dL Leukocyte Esterase Rfl (Negative) ARSENIO/UL Urine RBC (0-2) /hpf Urine WBC (0-3) /hpf Ur Squamous Epith Cells (Few) /hpf Urine Bacteria /hpf Urine Casts Influenza A (RT-PCR) (Negative) Influenza B (RT-PCR) (Negative) RSV (RT-PCR) (Negative) SARS-CoV-2 RNA (RT-PCR) (Negative) 07/24/24 07/24/24 Range/Units 14:31 17:32 WBC (4.5-10.0) K/mm3 RBC (4.2-5.4) M/mm3 Hgb (12.0-15.0) g/dL Hct (37.0-47.0) % MCV (80-100) fl MCH (26-34) pg MCHC (32-36) g/dl RDW (11.5-14.5) % Plt Count (150-375) k/mm3 MPV (7.4-10.4) fl Immature Gran % (Auto) (0-0.5) % Neut % (Auto) (45.5-73.1) % Lymph % (Auto) (18.3-44.2) % [place] % (Auto) (2.6-8.5) % Eos % (Auto) (0-4.4) % Baso % (Auto) (0.2-1.2) % Lymph # (Auto) (0.9-3.2) K/mm3 [place] # (Auto) (0.1-0.6) K/mm3 Eos # (Auto) (0-0.3) K/mm3 Baso # (Auto) (0.0-0.1) K/mm3 Abs Immat Gran (auto) (0.00-0.031) K/mm3 Absolute Neuts (auto) (1.3-6.7) K/mm3 Absolute Nucleated RBC (0.0-0.012) K/mm3 Nucleated RBC % (0.0-0.2) % Sodium (137-145) mmol/L Potassium (3.4-5.0) mmol/L Chloride (98-107) mmol/L Carbon Dioxide (22-30) mmol/L Anion Gap (4-12) mmol/L BUN (7-17) mg/dL Creatinine (0.7-1.0) mg/dL Estim Creat Clear Calc Estimated GFR (59 - ) Glucose (65-110) mg/dL Lactic Acid (0.7-2.0) mmol/L Calcium (8.4-10.2) mg/dL Magnesium (1.6-2.3) mg/dL Total Bilirubin (0.2-1.3) mg/dL AST (14-36) U/L ALT (6-35) U/L Alkaline Phosphatase (38-126) U/L Total Protein (6.3-8.2) g/dL Albumin (3.5-5.1) g/dL Lipase Cancelled (23-300) U/L Urine Color Yellow (Yellow) Urine Appearance Clear (Clear) Urine pH 6.0 (5.0-9.0) Ur Specific [place] > 1.045 H (1.001-1.035) Urine Protein Negative (Negative) mg/dL Urine Glucose (UA) Negative (Negative) mg/dL Urine Ketones 2+ H (Negative) mg/dL Ur Blood (Man) 1+ H (Negative) Urine Nitrate Negative (Negative) Urine Bilirubin Negative (Negative) Urine Urobilinogen 1.0 (<2.0) mg/dL Leukocyte Esterase Rfl Negative (Negative) ARSENIO/UL Urine RBC 3-5 H (0-2) /hpf Urine WBC 0-5 (0-3) /hpf Ur Squamous Epith Cells None seen (Few) /hpf Urine Bacteria None seen /hpf Urine Casts 0-2 Influenza A (RT-PCR) Negative (Negative) Influenza B (RT-PCR) Negative (Negative) RSV (RT-PCR) Negative (Negative) SARS-CoV-2 RNA (RT-PCR) Negative (Negative) <Jacquelyn Bynum MD - Last Filed: 07/24/24 18:38> Imaging Data Radiologist's impression: Impressions Abdomen/Pelvis CT 07/24/24 16:46 IMPRESSION: Moderate esophagitis/gastritis. Mild descending colonic and sigmoid wall edema may reflect colitis in the appropriate clinical context. <Jacquelyn Bynum MD - Last Filed: 07/24/24 18:38> Discharge Plan Discharge Clinical Impression: Acute diarrhea, Esophagitis with gastritis, Colitis <HUAN Boo Last Filed: 07/24/24 14:23> Patient Disposition: Home, Self-Care <HUAN Boo Filed: 07/24/24 14:23> Condition: Stable <HUAN Boo Last Filed: 07/24/24 14:23> Instructions: Antibiotic Form, Gastritis (ED), Acute Diarrhea (ED), Colitis (ED), Esophagitis (ED) <HUAN Boo Last Filed: 07/24/24 14:23> Additional Instructions: The omeprazole prescribed can help with the esophagitis/gastritis that was seen on your CT scan. The dicyclomine/Bentyl can help with abdominal cramping. Trial the acetaminophen for pain. 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 Return to the emergency department any new, worsening symptoms. <HUAN Boo Last Filed: 07/24/24 14:23> Patient Language: Cypriot <HUAN Boo Filed: 07/24/24 14:23> Prescriptions: New omeprazole 10 mg capsule,delayed release(DR/EC) 10 mg PO DAILY Qty: 20 0RF dicyclomine 10 mg capsule 10 mg PO BID PRN (Reason: abdominal pain) Qty: 10 0RF No Action magnesium oxide 200 mg magnesium tablet 200 mg PO DAILY Galzin 50 mg (zinc) capsule 50 mg PO DAILY selenium 50 mcg tablet 50 mcg PO DAILY B12 5,000-100 mcg lozenge sublingual Adult 50 Plus Probiotic 4 billion cell capsule 4,000 mmu cells PO DAILY Rx Instructions: administer with a meal <HUAN Boo Last Filed: 07/24/24 14:23> Follow-up/Referrals: Michael Rich MD [Primary Care Provider] - <HUAN Boo Last Filed: 07/24/24 14:23> Time of Disposition: 18:12 <Tanya Villalobos PA-C - Last Filed: 07/24/24 14:23> 18:12 <Jacquelyn Bynum MD - Last Filed: 07/24/24 18:38>
[2024-07-24 14:39] LABS: Basophils Percent Auto 0.5 % (0.2-1.2); Eosinophils Percent Auto 0.6 % (0-4.4); Hemoglobin 13.1 g/dL (12.0-15.0); Immature Granulocyte Absolute 0.01 K/mm3 (0.00-0.031); Immature Granulocyte Percent A 0.2 % (0-0.5); Lymphocytes Absolute Auto 1.72 K/mm3 (0.9-3.2); Lymphocytes Percent Auto 26.7 % (18.3-44.2); Mean Corpuscular HGB Conc 32.8 g/dl (32-36); Mean Corpuscular Hemoglobin 29.2 pg (26-34); Mean Corpuscular Volume 89.3 fl (80-100); Mean Platelet Volume 10.1 fl (7.4-10.4); Monocytes Absolute Auto 0.5 K/mm3 (0.1-0.6); Neutrophils Absolute Auto 4.2 K/mm3 (1.3-6.7); Platelet Count Result 206 k/mm3 (150-375); Red Blood Count 4.48 M/mm3 (4.2-5.4); Red Cell Distribution Width 14.2 % (11.5-14.5); White Blood Count 6.5 K/mm3 (4.5-10.0)
[2024-07-24 15:15] LABS: Influenza A QL RT-PCR Negative (Negative); Influenza B QL RT-PCR Negative (Negative); RSV RNA, RT-PCR Negative (Negative); SARS-CoV-2 RNA PCR Negative (Negative)
[2024-07-24 16:27] LABS: Alanine Aminotransferase 19 U/L (6-35); Albumin Level 4.5 g/dL (3.5-5.1); Alkaline Phosphatase 104 U/L (38-126); Anion Gap 2 mmol/L (4-12); Aspartate Amino Transferase 35 U/L (14-36); Blood Urea Nitrogen 14 mg/dL (7-17); Calcium 10.5 mg/dL (8.4-10.2); Carbon Dioxide 29 mmol/L (22-30); Chloride 106 mmol/L (98-107); Estimated Glomerular Filt Rate > 60; Glucose 88 mg/dL (65-110); Lipase 85 U/L (23-300); Potassium 3.8 mmol/L (3.4-5.0); Sodium 137 mmol/L (137-145)
[2024-07-24] MEDS: SODIUM CHLORIDE 0.9% IV 1,000 ML 999 ML IV CONT (16:50)
[2024-07-24 16:51] VITALS: BP 132/74; PULSE 73; RESP 18; O2SAT 100
--- NOTE | 2024-07-24 17:06 | PC.NURSE ---
Pt states she attempted to give a urine sample but accidently missed the hat
[2024-07-24] MEDS: PANTOPRAZOLE 40 MG TABLET PO (17:36)
[2024-07-24 17:49] LABS: Add Urine Microscopic? YES; Appearance Urine Clear (Clear); Bacteria Urine None Seen /hpf; Bilirubin Urine Negative (Negative); Blood Urine 1+ (Negative); Color Urine Yellow (Yellow); Glucose Urine UA Negative (Negative); Ketones Urine 2+ mg/dL (Negative); Leukocyte Esterase Ur Negative LEU/UL (Negative); Nitrate Urine Negative (Negative); Non Pathogenic Casts 0-2; Protein Urine Negative (Negative); Specific Grav Ur > 1.045 (1.001-1.035); Squamous Epithelial Cell Urine None Seen /hpf (Few); WBC Urine 0-5 /hpf (0-3)
[2024-07-24] MEDS: DICYCLOMINE HCL 10 MG CAPSULE PO (18:29)
[2024-07-24] MEDS: MORPHINE SULFATE (*CRX) 2 MG/ML INJ IV PUSH (18:29)
[2024-07-24 19:06] VITALS: BP 138/79; PULSE 67; RESP 18; O2SAT 100
[2024-07-24 19:31] VITALS: BP 138/79; PULSE 64; RESP 15; O2SAT 100
--- OUTSIDE RECORDS SUMMARY | 2024-07-31 11:26 | XMS_ITS | Continuity of Care Document ---
Author Organization [facility] up Address [address] [place] [address] Care Team Providers Care Diffuser Operator Name Role Phone Thompson Meléndez M.D. Attending Provider [phone] Michael Rich MD Primary Care Provider Michael Rich MD Referring Provider Care Teams Patient Care Team Team Status: Active Member Role Status Dates Peggy Moore MD Family Provider Active Michael Rich MD Primary Care Provider Active Patient Care Team Team Status: Inactive Member Role Status Dates Michael Rich MD Primary Care Pro vider, Attending Provider, Referring Provider Active Visit Care Team Team Status: Inactive Member Role Status Dates Thompson Meléndez M.D. Attending Provider Active Michael Rich MD Primary Care Provider, Referri ng Provider Active Chief Complaint and Reason for Visit Chief Complaint Admit Date Throat January 31, 2024 1:15 pm Medicare Annual Wellness June 26 12:49pm Reason for Visit Admit Date Chronic nonallergic rhinitis January 31, 2024 1:15pm Laryngopharyngeal reflux January 31, 2024 1:15pm Lingual tonsil hypertrophy January 30 1:15pm Tonsillar hypertrophy January 31, 2024 1: 15pm Tonsillar mass January 31, 2024 1:15 pm Anal discharge June 26, 2024 1 2:49pm Anal ulcer June 26, 2024 1 2:49pm Generalized osteoarthritis of multiple s ites June 26, 2024 12:49pm Hyperlipidemia LDL goal <100 June 12:49pm Lower leg edema June 26, 2024 1 2:49pm Microscopic hematuria June 26, 2024 12:49pm Osteoporosis June 26, 2024 1 2:49pm Undifferentiated connective tissue disea se June 26, 2024 12:49pm Varicose veins of both lower extremities June 26, 2024 12:49pm Vitamin D deficiency June 26, 2024 12:49pm Encounter for Medicare annual wellness e xam June 26, 2024 12:49pm Skin cancer screening June 26, 2024 12:49pm Reason for Referral Referring Provider Name Referring Provider Address Referring Provider Phone Referral Date Requested Appointment Date Referral Reason June 26, 2024 R19.8 - Other specified symptoms and signs involving the digestive system and abdomen,K62.6 - Ulcer of anus and rectum Allergies, Adverse Reactions, Alerts Allergen Type Severity Reaction Last Updated Verified Status Comments alendronate sodium Allergy Severe Severe joint pain June 26, 2024 12:55pm Yes Active wheat Allergy Mild Abdominal Pain June 26, 2024 12:55pm Yes Active acetaminophen Adverse Reaction Mild Gastrointestinal Upset June 26, 2024 12:55pm Yes Active Topical E Allergy Moderate Blister June 26, 2024 12:55pm No Active Can't take NSAIDS because of Ulcers Social History Smoking Status Status Start Date End Date Date of Observa tion Never smoked tobacco (finding) June 26, 2024 1:06pm Observation Status Observation Response Date of Response Has Lack of Trans Kept You F rom Med Appts or Getting Meds? Yes April 12, 2023 1:05pm In Past 12 Months, Were You Worried Your Food Would Run Out? Never True April 12, 2023 1:05pm What is Your Housing Situati on Today? I Have Housing April 12, 2023 1:05pm Gender Identity (if Verbaliz ed by the Patient) Female April 12, 2023 1:05pm Sexual Orientation (if Verbalized by the Patient) Straight or Heterosexual April 12, 2023 1:05pm Are You Worried That in Next 2 Mo, You Won't Have Housing? No April 12, 2023 1:05p m Do You Have Trouble Paying Y our Heating Or Electricity Bill? No April 12, 2023 1:05 pm Do You Have Trouble Paying F or Medicines? No April 12, 2023 1:05pm Are You Currently Unemployed and Looking for Work? No April 12, 2023 1:05pm Highest Level of Education Completed High School Diploma/GED April 12, 2023 1:05pm Do You Have Trouble With Childcare/Care of a Family Member? No April 12, 2023 1:05pm alcohol intake never April 12, 2023 1:05pm Substance use type does not use March 1:05pm Patient Sex Female June 26 2:07pm Assigned Sex Female June Family History Relationship Condition Age at Onset Recorded Date/T kassandra Not Specified Family history of ca rdiovascular disease Unknown Diabetes mellitus Unknown Family history of malignant neoplasm Unkn own Heart disease Unknown Carcinoma of colon Unknown mother Family history of ma lignant neoplasm of breast in first degree relative 70 Family history of arthritis Unknown sibling Family history of arthritis Unknown Acute myocardial infarction Unknown father Pneumonia Unknown Problems Active Problems Medical Problem Onset Date Status Lingual tonsil hypertrophy Unknown Activ e Lower leg edema Unknown Active Tonsillar mass Unknown Active Anal discharge Unknown Active History of stomach ulcers Unknown Active Rheumatoid arthritis Unknown Active Lower extremity edema Unknown Active Tonsillar hypertrophy Unknown Active UTI symptoms Unknown Active Generalized osteoarthritis of multiple sites Unk nown Active Osteoporosis 2009 Active LITA positive Unknown Active Anemia Unknown Active Unsteady gait Unknown Active Colitis Unknown Active Dysphagia Unknown Active Hernia Unknown Active Microscopic hematuria Unknown Active Hyperlipidemia LDL goal <100 Unknown Act willow Varicose veins of both lower extremities Unknown Active Weight loss Unknown Active Perianal irritation Unknown Active Laryngopharyngeal reflux Unknown Active S/P total knee arthroplasty Unknown Acti ve Right knee DJD Unknown Active Excessive weight loss Unknown Active Undifferentiated connective tissue disease 2018 Active Chronic nonallergic rhinitis Unknown Act willow At risk for falls Unknown Active Esophageal dysphagia Unknown Active Vitamin D deficiency Unknown Active Anal ulcer Unknown Active Synovitis of right knee Unknown Active Hiatal hernia Unknown Active Inactive/Resolved Problems Medical Problem Onset Date Status Effusion of right knee joint Unknown Res olved Cloudy urine Unknown Resolved Human immunodeficiency virus [HIV] counseling Un known Resolved Rheumatoid arthritis Unknown Resolved Closed fracture of lateral portion of tibial cielo teau Unknown Resolved Abnormality of gait and mobility Unknown Resolved Fall (on) (from) unspecified stairs and steps, initial encounter August, Resolved Screening for HIV without presence of risk facto rs Unknown Resolved Fatigue Unknown Resolved Hematuria Unknown Resolved Chronic constipation Unknown Resolved Exudative pharyngitis Unknown Resolved Exudative pharyngitis Unknown Resolved Histoplasmosis pneumonia Unknown Resolve d URI (upper respiratory infection) Unknown Resolved URI (upper respiratory infection) Unknown Resolved Colitis Unknown Resolved Claudication Unknown Resolved Diarrhea Unknown Resolved Enteritis Unknown Resolved Generalized muscle weakness Unknown Reso lved Falls frequently Unknown Resolved History of appendectomy 1986 Resolved Closed fracture of tibial plateau 2021 Resolved RB (rectal bleeding) Unknown Resolved Callus of foot Unknown Resolved Right knee pain Unknown Resolved Nausea & vomiting Unknown Resolved Ulcerative colitis Unknown Resolved Constipation Unknown Resolved Slow transit constipation Unknown Resolv ed Hypomagnesemia Unknown Resolved Medications Medication Status Dose Units Route Directions Qty Days St art Date Stop Date End Date Instructions Adherence Magnesium Oxide 200 mg magnesium tablet Active [address] [facility] er 2023 12:00a m Zinc Acetate (Galzin) 50 mg (zinc) capsule Active [address] [facility] er 2023 12:00a m Selenium 50 mcg tablet Active [address] [facility] er 2023 12:00a m Cyanocobala min-Cobamam luke (B12) 5,000-100 mcg lozenge Active LOZENG E SUBLIN GUAL November 26, 2023 11:00p m Lactobacill us Combination No.9 (Adult 50 Plus Probiotic) 4 billion cell capsule Active 4000 MMU CELLS PO DAILY November 26, 2023 11:00p m administer with a meal Immunizations Immunization Event Date Not Given Reason Dose Number Screen Roller Lot Number Vaccine Information Statement (VIS) Detail Administration Location SARS-COV-2 (COVID-19) Moderna January 22, 2021 SARS-COV-2 (COVID-19) Moderna February 19, 2021 SARS-COV-2 (COVID-19) Moderna August 30, 2021 SARS-COV-2 (COVID-19) Spikevax January 22, 2021 SARS-COV-2 (COVID-19) Spikevax February 19, 2021 SARS-COV-2 (COVID-19) Spikevax August 30, 2021 Medical Equipment Device Date Implanted Device Details BIOMET BONE CEMENT R June 07, 2022 BIOMET BONE CEMENT REFOBACIN June 07, 2022 FEMORAL COMPONENT KEATONGUARD [id number] Nov [id number] MODULAR FINNED STEM 80/10MM June 07, 2022 PRIMARY TIBIAL MODULAR TRAY CEMENTED W/LOCKING BAR [id number] June 07, 2022 PS TIBIAL BEARING 10-63/67MM [id number] May SPLINED KNEE STEM V2 W/SCREW 12/120MM [id number] Vital Signs Vital Reading Result Reference Range Collection Date/Time Height 60 [in_i] January 31, 2024 12:18pm Weight 53.18 kg January 31, 2024 12:18pm Body Temperature 97.8 [degF] 97.6-99.6 January 31, 2024 12:18pm Heart Rate 57 /min 60-100 January 31, 2024 12:18pm Oxygen saturation by Pulse oximetry 96 % 90-100 January 31, 2024 12:1 8pm BP Systolic 108 mm[Hg] 100-140 January 31, 2024 12:18pm BP Diastolic 60 mm[Hg] 60-90 January 31, 2024 12:18pm BMI (Body Mass Index) 22.8 kg/m2 January 212023 12:18pm Height 60 [in_i] June 26, 2 024 12:50pm Weight 53.07 kg June 26, 2 024 12:50pm Body Temperature 97.8 [degF] 97.6-99.6 June 12:50pm Heart Rate 70 /min 60-100 June 26, 2 024 12:50pm Respiratory rate 16 /min 12-June 12:50pm Oxygen saturation by Pulse oximetry 100 % 90-100 June 26, 2024 1 2:50pm BP Systolic 136 mm[Hg] 100-140 June 26, 2 024 12:50pm BP Diastolic 67 mm[Hg] 60-90 June 26, 2 024 12:50pm BMI (Body Mass Index) 22.8 kg/m2 [facility] 2023 12:50pm Insurance Providers Guarantor Rula Nix Address [address] [facility] [address] Contact Info. Home Phone: Payer Policy Id Coverage Id Subscriber's Name Subscriber Id Effective Date Expiration Date [facility] [id number] Rula Nix [id number] 2018 Self Pay Self N/A Encounters Encounter Location(s) Arrival/Admit Date Discharge/Depart Date Provider(s) Departed Physician/Prov ider Office Visit [facility] Office January 31, 2024 12:15pm January 31, 2024 12:40pm Thompson Meléndez MD Departed Physician/Prov ider Office Visit [facility] June 26, 2024 12:49pm June 26, 2024 2:07pm Austin Rich MD Recent Diagnosis Onset Date Admit Date Chronic nonallergic rhinitis Unknown Jan 1:15pm Laryngopharyngeal reflux Unknown January 302023 1:15pm Lingual tonsil hypertrophy Unknown January 31, 2024 1:15pm Tonsillar hypertrophy Unknown January 31, 2024 1:15pm Tonsillar mass Unknown January 31, 2024 1:15pm Anal discharge Unknown June 26 12:49pm Anal ulcer Unknown June 26 12:49pm Generalized osteoarthritis of multiple sites Unk nown June 26, 2024 12:49pm Hyperlipidemia LDL goal <100 Unknown Jun 12:49pm Lower leg edema Unknown June 26 12:49pm Microscopic hematuria Unknown June 262023 12:49pm Osteoporosis 2008June 26 12:49pm Undifferentiated connective tissue disease 2017June 26, 2024 12:49pm Varicose veins of both lower extremities Unknown June 26, 2024 12:49pm Vitamin D deficiency Unknown June 12:49pm Encounter for Medicare annual wellness exam Unkn own June 26, 2024 12:49pm Skin cancer screening Unknown June 262023 12:49pm Mental Status Observation Response Date Recorded oriented to person Yes January 30 12:38pm oriented to place Yes January 30 12:38pm oriented to time Yes January 31, 2024 12:38pm patient oriented x3 Yes January 30, 12:38pm Assessments Diagnosis Onset Date Resolution Status Admit Date Chronic nonallergic rhinitis acute January 31, 2024 1:15pm Laryngopharyngeal reflux acute January 31, 2024 1:15pm Lingual tonsil hypertrophy acute January 31, 2024 1:15pm Tonsillar hypertrophy acute Jan 1:15pm Tonsillar mass acute January 31, 2024 1:15pm Anal discharge acute June 262023 12:49pm Anal ulcer acute June 26, 2024 12:49pm Generalized osteoarthritis o f multiple sites acute June 26 12:49pm Hyperlipidemia LDL goal <100 acute June 26, 2024 12:49pm Lower leg edema acute June 26, 2024 12:49pm Microscopic hematuria acute Jun 12:49pm Osteoporosis 2008 12:49pm Undifferentiated connective tissue disease 2018 acute June 26 12:49pm Varicose veins of both lower extremities acute June 26 12:49pm Vitamin D deficiency acute Dece mb2023 12:49pm Encounter for Medicare paul valdes wellness exam noneactive June 26 12:49pm Skin cancer screening noneactive Jun 12:49pm Plan of Treatment Author Austin coleman [facility] Authored June 26, 2024 1 :43pm no signs of depression or co gnitive deficits at risk for falls advised her to be cautious last colonoscopy in March 2017 was recommended to repeat in [address] Jack at [facility], refusing vaccinations 07/15: cholesterol 196, LDL 103, HDL 76, triglycerides 79 07/13: cholesterol 178 LDL 73, HDL 91, triglycerides 61 07/12: cholesterol 161, LDL 63, HDL 78, triglycerides 113 07/11: cholesterol 210, LDL 100, HDL 94, triglycerides 72 no longer following up with rheumatology no longer on hydroxychloroquine 200 mg p.o. q.day no longer taking vitamin-D 2000 units p.o. q.day right lower extremity edema with varicose veins advised her to use compression stockings and leg elevation refusing any medications advised her to take eikp-axy-pwcphyt calcium with vitamin-D 08/12: DEXA scan suggestive of osteo porosis with worst T-score of -2.5 at left femoral neck s/p right knee replacement(06/14) advised her to use compression stockings complains of mucus discharge denies any bowel incontinence. advised to schedule an appointment with her supervisor [employer] former at [facility] will refer to Dermatology she has seen Dr. Porter in the past all the workup was negative Author Thompson Meléndez [facility] Authored January 31, 2024 12:3 8pm I had a lengthy discussion w ith the patient and with her caregiver and I told her that perhaps the right lingual tonsillar hypertrophy had developed after an acute infection. Also she has laryngopharyngeal reflux that would aggravate this issue. There is no neck mass and the CT scan soft tissues of the neck revealed there is no evidence of any tumor. My examination had also revealed that there was no laryngeal paralysis or evidence of aspiration. At this point I do not think she would need any other medication other than the proton pump inhibitor for her laryngopharyngeal reflux. She seemed to understand the plans of treatment and agreed with them Future Tests Future scheduled test information is unavailable Pending Tests Test Name Ordered Date Scheduled Date Vitamin B12 June 26, 2024 1:35pm Hemoglobin A1C June 26, 2024 1:35pm Thyroid Stimulating Hormone Reflex June 26, 2024 1:35pm Future Visits Future appointment information is unavailable Referrals to Other Providers Reason for Referral Referral Start Date Provider Provider Contact Information Provider Address R19.8 - Other specified symptoms and signs involving the digestive system and abdomen,K62.6 - Ulcer of anus and rectum June 26, 2024 Randy Moore , DO Work Phone: [phone] [place] [address] Future Procedures Procedure Name Ordered Date Scheduled Date Complete Blood Count with Diff June 26 1:35pm Comprehensive Metabolic Panel June 26, 2024 1:35pm Lipid Panel June 26, 2024 1:35pm Vitamin D 25 Hydroxy June 26, 2024 1:35pm Future Medications Future medication information is unavailable Patient Instructions Patient instructions are unavailable Hospital Discharge Instructions Ambulatory Orders* General Surgery Referral Time Frame: 06/26/24, Location: None Selected * Vitamin B12 Time Frame: 06/26/24, Location: [facility] * Hemoglobin A1C Time Frame: 06/26/24, Location: [facility] * Lipid Panel Time Frame: 06/26/24, Location: [facility] * Vitamin D 25 Hydroxy Time Frame: 06/26/24, Location: [facility]
== END 2024-07-24 19:33 | disposition home or self-care (01) ==
PROVIDERS: Physician Assistant; Emergency Provider Student in an Organized Health Care Education/Training Program; PCP Family Medicine
DX: K52.9 Noninfective gastroenteritis and colitis, unspecified (principal); K20.90 Esophagitis, unspecified without bleeding; K29.70 Gastritis, unspecified, without bleeding; Z20.822 Contact with and (suspected) exposure to COVID-19; E55.9 Vitamin D deficiency, unspecified; E78.5 Hyperlipidemia, unspecified; M32.9 Systemic lupus erythematosus, unspecified; M06.9 Rheumatoid arthritis, unspecified; M81.0 Age-related osteoporosis without current pathological fracture; M19.90 Unspecified osteoarthritis, unspecified site; Z66 Do not resuscitate; Z87.01 Personal history of pneumonia (recurrent); Z86.718 Personal history of other venous thrombosis and embolism
CPT/HCPCS: 36415; 74177; 80053; 81001; 83605; 83690; 83735; 85025; 87637; 96361; 96374; 99284; A9270; J2270; J7030; Q9967

== ENCOUNTER 2024-08-19 13:22 | Outpatient (CLI) | payer OTHER, SELFPAY ==
--- NOTE | ~2024-08-19 | US_ITS ---
EXAMINATION: US venous doppler [facility] DATE: 08/19/2024 14:21 INDICATION: Soft tissue swelling and varicose veins of the lower extremities TECHNIQUE: Grayscale ultrasound images without and with compression and Doppler ultrasound images of the bilateral lower extremity veins were obtained. COMPARISON: None. FINDINGS: The visualized portions of right common femoral vein, profunda (deep) femoral vein, femoral vein, pop liteal vein, posterior tibial veins, peroneal veins, gastrocnemius vein and greater saphenous vein ou tflow are patent. The visualized portions of left common femoral vein, profunda femoral vein, femoral vein, popliteal v ein, posterior tibial veins, peroneal veins, gastrocnemius vein and greater saphenous vein outflow ar e patent. IMPRESSION: 1. No deep venous thrombosis in either lower limb. Reviewed, dictated and finalized at location B. NG ELEMENT MACHINE OPERATOR
--- OUTSIDE RECORDS SUMMARY | 2024-08-19 14:10 | XMS_ITS | Clinical Summary ---
Author Organization [facility] Address [address] [place] [address]. [place], [place] [id number] [place] [address] Care Team Providers Care Purse Framer Name Role Phone Abimael Fuentes MD Primary Care Provider [phone] Allergies Active Allergy Reactions Criticality Noted Date Comments Alendronate Joint Pain High 08/10/2020 Vitamin E Contact Dermatitis 10/30/2018 Topical vitamin e- blisters Medications vitamin B-12 100 MCG tablet Take 1,000 mcg by mouth daily. Active magnesium oxide 250 MG tablet Take 1 tablet by mouth daily. Active hydrocodone-acet aminophen (NORCO) 5-325 MG tablet Take 1 tablet by mouth every 4 (four) hours as needed. 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) Undifferentiated connective tissue disease ([facility]) 08/08/2024 Varicose veins of both lower extremities 025 Family History Medical History Relation Comments Diabetes Brother 1 Heart Disease Brother 1 pacemaker Diabetes Brother 2 Heart Disease Brother 2 Arthritis Brother 3 Diabetes Brother 3 Heart Disease Brother 3 Diabetes Daughter Cancer Mother Relation Status Comments Brother 1 Brother 2 Alive Brother 3 Daughter Father (Age 65) Mother (Age 70) Social History Tobacco Use Types Packs/Day Years Used Date Smoking Tobacco: Never Smokeless Tobacco: Never Alcohol Use Standard Drinks/Week Comments Yes 0 (1 standard drink = 0.6 oz pur e alcohol) rare Comments Unknown Sex and Gender Information Value Date Recorded Sex Assigned at Not on file Legal Sex Female 7:35 PM CDT Gender Identity Not on file Sexual Orientation Not on file Last Filed Vital Signs Vital Sign Reading Time Taken Comments Blood Pressure 135/73 11/05/2018 12:25 PM CDT Pulse 74 11/05/2018 12:07 PM CDT Temperature 36.5 ??C (97.7 ??F) 11/05/2018 11:51 AM C DT Respiratory Rate 16 11/05/2018 11:51 AM CDT Oxygen Saturation 99% 11/05/2018 12:25 PM CDT Inhaled Oxygen Concentration - - Weight 52.3 kg (115 lb 4.8 oz) 11/05/2018 9:56 A M CDT Height 152.4 cm (5') 11/05/2018 9:56 AM CDT Body Mass Index 22.52 11/05/2018 9:56 AM CDT Plan of Treatment Upcoming Encounters Date Type Department Care Team (Late st Contact Info) Description 08/22/2024 3:00 PM DESIGN LEADER Office Visit [facility] [address] [place] [address] Sherwin Palomares MD [facility]. [facility] [address] [place] [address] Health Maintenance Due Date Last Done Comments DTaP, Tdap and Td Vaccines ( 1 - Tdap) 1960 Zoster Vaccines (1 of 2) 1991 Annual Medicare Wellness Visit 2006 Dexa Scan (General) 2006 Pneumococcal Vaccine: 65+ Ye ars (1 of 1 - PCV) 2006 RSV Immunization or 60+ Years (1 - 1-dose 75+ series) 2016 COVID-19 Vaccine (2023-2 5 season) 2024 Influenza Adult (#1) 2024 Meningococcal B Vaccine Aged Out No l onger eligible based on patient's age to complete this topic Meningococcal Vaccine Aged Out No james irene eligible based on patient's age to complete this topic RSV Immunizations Under 20 Months Aged Out No longer eligible based on patient's age to complete this topic Medical Devices Implanted Type Area Corsetier Device Identifier Shelf Expiration Date Model / Serial / Lot 2 Screws Lower Back Insurance [employer] Advance Directives * Full Code (Latest Code Status on File) Date Activated Date Inactivated Comments 11/05/2018 11:54 AM 11/05/2018 2:41 PM Care Teams Purse Framer Relationship Specialty Start Date End Date Abimael Fuentes MD [address] [place] [address] PCP - General FAMILY PRACTICE 10/30/18
--- OUTSIDE RECORDS SUMMARY | 2024-08-19 14:11 | XMS_ITS | Referral Summary ---
Author Organization [facility] Address [address] [facility] [place] [address] Care Team Providers Care Motorcycle Police Officer Name Role Phone Unavailable Primary Care Provider Unavailabl e Source Comments [facility],non-owned Affiliates and Associated Physician Practices is amultiple site organization consisting of ambulatory clinics and hospital sitesin [place], [place], [place] and [place]. This disclosure is being madepursuant to the Care Everywhere program and may not contain all information available regarding this patient. Last updated 18.[facility] [employer] Social History Tobacco Use Types Packs/Day Years Used Date Smoking Tobacco: Never Assessed Sex and Gender Information Value Date Recorded Sex Assigned at Not on file Gender Identity Not on file Sexual Orientation Not on file Plan of Treatment Not on file
--- OUTSIDE RECORDS SUMMARY | 2024-08-19 14:11 | XMS_ITS | CONTINUITY OF CARE DOCUMENT ---
Author Name kat stephens Address Unknown Organization [facility] Address [address] [place] [address] [address] [place] [address] Phone [phone] Care Team Providers Care Database Developer Name Role Phone kat stephens Unavailable Unavailable
--- OUTSIDE RECORDS SUMMARY | 2024-08-19 14:11 | XMS_ITS | Clinical Summary ---
Author Organization [facility] Address [address] [place] [phone] Phone Care Team Providers Care Real Estate Transaction Coordinator Name Role Phone Amaya Murphy MD Primary Care Provider [phone] Allergies Active Allergy Reactions Criticality Noted Date Comments Lidocaine Hcl Unknown 01/25/2011 Used in bronchoscopy In 1971-?? Vitamin E (D-Alpha Tocopherol) Rash Low 03/29/2011 Medications ascorbic acid (VITAMIN C) 500 mg Oral tablet Take 500 mg by mouth daily. Active BP-5-ISB-DHA-F maria isabel Oil-Flax-E [phone] rr-tc-hi-unit Oral Cap Take by mouth. Activ e methylPREDNISo lone (MEDROL DOSPACK) 4 mg Oral DsPk Take 4 mg by mouth see administration instructions. Active cholecalcifero l, Vitamin D3, (VITAMIN D3) 1,000 unit Oral Cap Take by mouth daily. Active aspirin (EVANS) 81 mg Oral TabIndications :Instructed to stop prior to surgery Take 81 mg by mouth. Indications: Instructed to stop prior to surgery Active diazepam (VALIUM) 5 mg Oral tablet Take 1 Tab by mouth every 8 hours as needed. 90 Tab 0 1 Active oxyCODONE-acet aminophen (PERCOCET) 10-325 mg Oral Tab Take 1 Tab by mouth every 4 hours as needed. 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 Gender Identity Not on file Sexual Orientation Not on file Last Filed Vital Signs Vital Sign Reading Time Taken Comments Blood Pressure 107/66 04/02/2011 4:42 AM CDT Pulse 71 04/02/2011 4:42 AM CDT Temperature 36.1 ??C (96.9 ??F) 04/02/2011 4:42 AM CD T Respiratory Rate 18 04/02/2011 4:42 AM CDT Oxygen Saturation 98% 04/02/2011 4:42 AM CDT Inhaled Oxygen Concentration - - Weight 54.4 kg (120 lb) 03/29/2011 10:56 AM CDT Height 152.4 cm (5') 03/17/2011 10:32 AM CDT Body Mass Index 23.44 03/17/2011 10:32 AM CDT Plan of Treatment Health Maintenance Due Date Last Done Comments DTAP/TDAP/TD VACCINES (1 - Tdap) 1960 PNEUMOCOCCAL VACCINE 65+ YEARS (1 of 1 - PCV) 07/22/19 91 ZOSTER VACCINE (1 of 2) 1991 OSTEOPOROSIS SCREENING 2006 RSV VACCINE (60+ or ) (1 - 1-dose 75+ series) 2016 INFLUENZA VACCINE (#1) 2024 Medical Devices Implanted Type Area Associate Professor Of Church [employer] Device Identifier Shelf Expiration Date Model / Serial / Lot Log [id number] - Bone & Biologicals - 1 - Infuse Protein Kit [id number] Implanted:Qty: 1 on 03/29/2011 at [facility] Biological Back MEDTRONIC- SOFAMOR DANEK 11/11/2013 [id number] / / [id number] Cage Implanted:Qty: 1 on 03/29/2011 at [facility] Cage N/A: Spine Lumbar DEPUY ORTHO 11/21/2015 L-- / / [id number] Description:Loop -LIF-cage 8 mm,degree small Log [id number] - Depuy Expedium 5.5 Spine Tray - 1 - Dc Xpdm 5.5 Ti Prebnt 45mm [id number] Implanted:Qty: 2 on 03/29/2011 at [facility] Dc Spine Lumbar J&J- DEPUY SPINE INC 5 / / Description:Depuy Expedium T ray Load # 45 Mar 11 Log [id number] - Depuy Expedium 5.5 Spine Tray - 1 - Screw Set Inner Implanted:Qty: 4 on 03/29/2011 at [facility] Screw Spine Lumbar J&J- MED PROD 0-OLD / / Log [id number] - Depuy Expedium 5.5 Spine Tray - 1 - Screw Exp Poly 6x45mm Implanted:Qty: 4 on 03/29/2011 at [facility] Screw Spine Lumbar J&J- DEPUY SPINE INC 5 / / Description:Depuy Expedium t ray Load 3 45 Mar 11 Insurance MEDICARE PART A AND B [facility] Advance Directives For more information, please contact: [phone] * Full Code (Latest Code Status on File) Date Activated Date Inactivated Comments 03/30/2011 7:24 AM 04/02/2011 2:33 PM * Full Code Date Activated Date Inactivated Comments 03/29/2011 9:21 PM 03/30/2011 7:24 AM * Full Code Date Activated Date Inactivated Comments 03/29/2011 3:54 PM 03/29/2011 9:21 PM * Full Code Date Activated Date Inactivated Comments 03/29/2011 1:39 PM 03/29/2011 3:54 PM * Full Code Date Activated Date Inactivated Comments 03/29/2011 10:15 AM 03/29/2011 1:39 PM Care Teams Real Estate Transaction Coordinator Relationship Specialty Start Date End Date Amaya Murphy MD [address] [place] [address] PCP - General Family Practice 01/25/11
--- OUTSIDE RECORDS SUMMARY | 2024-08-19 14:11 | XMS_ITS | Patient Health Summary ---
Author Organization [facility] Address [address] [place] [address] Care Team Providers Care Central Office Operator Name Role Phone Unavailable Primary Care Provider Unavailabl e Note from [facility],non-owned Affiliates and Associated Physician Practices is amultiple site organization consisting of ambulatory clinics and hospital sitesin [place], [place]. This disclosure is being madepursuant to the Care Everywhere program and may not contain all information available regarding this patient. 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 FINDINGS: Right hand: There is severe hypertrophic arthritic change at the first carpometacarpal joint, third metacarpophalangeal joint, and fourth metacarpophalangeal joint. There is moderate scaphotrapeziotrapezoidal joint space narrowing. There are large degenerative subchondral cysts within the distal pole of the scaphoid and trapezoid bones. There is moderate hypertrophic arthritic change at the second through fifth distal interphalangeal joints. There is relative sparing of the proximal interphalangeal joints. There is bony demineralization. There is soft tissue swelling at the ulnar aspect of the wrist and about the metacarpophalangeal joints. Left hand: There is severe hypertrophic arthritic change at the first carpometacarpal joint, second metacarpophalangeal joint, and third metacarpophalangeal joint. There is mild to moderate scaphotrapeziotrapezoidal joint space narrowing. There is a small degenerative subchondral cyst within the distal pole of the scaphoid bone. There are mild arthritic changes within the distal interphalangeal joints of the second, fourth, and fifth fingers. There is bony demineralization. Edited by Marilyn Flores on 10/12/2016 3:53 PM Procedure Note Robyn Arizmendi MD - 10/12/2016 TWO VIEWS RIGHT HAND TWO VIEWS LEFT HAND INDICATION: Right hand pain and left hand pain. FINDINGS: Right hand: There is severe hypertrophic arthritic change at the first carpometacarpal joint, third metacarpophalangeal joint, and fourth metacarpophalangeal joint. There is moderate scaphotrapeziotrapezoidal joint space narrowing. There are large degenerative subchondral cysts within the distal pole of the scaphoid and trapezoid bones. There is moderate hypertrophic arthritic change at the second through fifth distal interphalangeal joints. There is relative sparing of the proximal interphalangeal joints. There is bony demineralization. There is soft tissue swelling at the ulnar aspect of the wrist and about the metacarpophalangeal joints. Left hand: There is severe hypertrophic arthritic change at the first carpometacarpal joint, second metacarpophalangeal joint, and third metacarpophalangeal joint. There is mild to moderate scaphotrapeziotrapezoidal joint space narrowing. There is a small degenerative subchondral cyst within the distal pole of the scaphoid bone. There are mild arthritic changes within the distal interphalangeal joints of the second, fourth, and fifth fingers. There is bony demineralization. Edited by Marilyn Flores on 10/12/2016 3:53 PM Denis Sanford MD DIAGNOSTIC IMAGING O [facility]
--- OUTSIDE RECORDS SUMMARY | 2024-08-19 14:11 | XMS_ITS | Clinical Summary ---
Author Organization [facility] Address [address] [place] [address] Care Team Providers Care Customer Service Manager Name Role Phone Unavailable Primary Care Provider Unavailabl e Source Comments [facility],non-owned Affiliates and Associated Physician Practices is amultiple site organization consisting of ambulatory clinics and hospital sitesin [place], [place], [place] and [place]. This disclosure is being madepursuant to the Care Everywhere program and may not contain all information available regarding this patient. Last updated 18.[facility] [employer] Social History Tobacco Use Types Packs/Day Years Used Date Smoking Tobacco: Never Assessed Sex and Gender Information Value Date Recorded Sex Assigned at Not on file Gender Identity Not on file Sexual Orientation Not on file Plan of Treatment Health Maintenance Due Date Last Done Comments BONE DENSITY TESTING 1941 DTAP/TDAP/TD VACCINES (1 - Tdap) 1960 PNEUMOCOCCAL VACCINE 50+ (1 of 1 - PCV) 1991 ZOSTER VACCINE (1 of 2) 1991 Respiratory Syncytial Virus (RSV) Vaccine Pt: or over 60 yrs (1 - 1-dose 75+ series) 2016 COVID-19 VACCINE ( - 2023-2 5 season) 2024 INFLUENZA VACCINE (#1) 2024 DEPRESSION SCREENING 07/24/2024 MEDICARE AWV ? CALENDAR YEAR 2024 HEPATITIS B VACCINE Aged Out No longe r eligible based on patient's age to complete this topic HIB VACCINE Aged Out No longer eligi ble based on patient's age to complete this topic HPV VACCINE Aged Out No longer eligi ble based on patient's age to complete this topic MENINGOCOCCAL (Group B) VACCINE Aged Out No longer eligible based on patient's age to complete this topic MENINGOCOCCAL VACCINE Aged Out No james irene eligible based on patient's age to complete this topic
== END 2024-08-19 13:23 | disposition home or self-care (01) ==
PROVIDERS: PCP Family Medicine; Visit Provider Nurse Practitioner Family
DX: I83.003 Varicose veins of unspecified lower extremity with ulcer of ankle (principal); I87.2 Venous insufficiency (chronic) (peripheral); L97.309 Non-pressure chronic ulcer of unspecified ankle with unspecified severity; Z86.718 Personal history of other venous thrombosis and embolism
CPT/HCPCS: 93970

== ENCOUNTER 2025-01-15 14:24 | Outpatient (CLI) | payer OTHER, SELFPAY ==
[2025-01-15 19:33] LABS: Vitamin D 25 Hydroxy 26.1 ng/mL
[2025-01-15 21:18] LABS: Hemoglobin A1C 5.7 % (<5.7)
== END 2025-01-15 14:25 | disposition home or self-care (01) ==
LOC: ANHGOSHLAB 14:26
PROVIDERS: PCP Family Medicine; Visit Provider Family Medicine
DX: R73.03 Prediabetes (principal); E55.9 Vitamin D deficiency, unspecified; R13.10 Dysphagia, unspecified; K21.9 Gastro-esophageal reflux disease without esophagitis; J31.0 Chronic rhinitis; J35.1 Hypertrophy of tonsils
CPT/HCPCS: 36415; 82306; 83036

== ENCOUNTER 2025-01-23 14:53 | Emergency (ER) | payer OTHER, SELFPAY ==
--- NOTE | ~2025-01-23 | XR_ITS ---
XR hand LT min 3V Ordering provider: Brady Alonzo History: . injury, pain to the ring finger . Comparison: None. FINDINGS: BONES: No acute fracture. Subluxation is seen in the metacarpophalangeal joints.. Osteopenia of the bones. JOINT SPACES: Narrowing of all the joints in the hand. SOFT TISSUES: Unremarkable. IMPRESSION: No definite fractures seen. Osteopenia of the bones. Subluxation in the metacarpophalangeal joints. Clinical correlation and follow-up advised. Osteoarthritic changes involving all of the joints in the hand. Reviewed, dictated and finalized at location A. IMPRESSION: No definite fractures seen. Osteopenia of the bones. Subluxation in the metacarpophalangeal joints. Clinical correlation and follow- up advised. Osteoarthritic changes involving all of the joints in the hand.
--- NOTE | ~2025-01-23 | XR_ITS ---
XR knee RT min 4V Ordering provider: Brady Alonzo MD History: . injury . Comparison: June 08, 2023 FINDINGS: BONES: No acute fracture or dislocation. JOINT SPACES: Total knee arthroplasty. SOFT TISSUES: Soft tissue swelling seen medially. IMPRESSION: No acute osseous abnormality right knee. Total knee arthroplasty. Reviewed, dictated and finalized at location A.
--- NOTE | ~2025-01-23 | CT_ITS ---
CT brain wo con Ordering provider: Brady Alonzo History: 84 years Female with . fall . Comparison: None. Technique: CT of the head without contrast. Radiation reduction technique utilized.The dose-length pr oduct was 605.33 mGy-cm. FINDINGS: BRAIN PARENCHYMA AND CSF SPACES: Mild leukoaraiosis and diffuse cortical atrophy. Mild atheromatous d isease. 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 No midline shift, mass effe ct or hemorrhage. The brain parenchyma and CSF spaces are otherwise normal. VISUALIZED PARANASAL SINUSES: Bilateral ethmoid sinus disease. Otherwise, Well aerated. MASTOIDS: Well aerated. BONES: The bones appear intact. SOFT TISSUES: Visualized nasopharynx is normal. Superficial soft tissues are normal. IMPRESSION: No acute intracranial findings. Reviewed, dictated and finalized at location A.
--- NOTE | ~2025-01-23 | XR_ITS ---
XR elbow LT min 3V Ordering provider: Brady Alonzo MD History: . PT FELL . Comparison: None. FINDINGS: BONES: No acute fracture or dislocation. Osteopenia of the bones. JOINT SPACES: Normal. SOFT TISSUES: Normal. No definite joint effusion. IMPRESSION: No acute osseous abnormality left elbow. Reviewed, dictated and finalized at location A.
--- NOTE | ~2025-01-23 | CT_ITS ---
CT cervical spine wo con Ordering provider: Brady Alonzo History: . fall . Comparison: None. Technique: CT of the cervical spine was performed without contrast. Sagittal and coronal reformatted images were also obtained and reviewed. Automated exposure control and iterative reconstruction charles hnique were employed. The dose-length product was 90.92 mGy-cm. FINDINGS: VERTEBRAE: Severe kyphosis centered at the level of C5. Minimal anterolisthesis at the level of C3-C4 and C4-C5. Otherwise, No subluxation or acute fracture. The occipital condyles are intact. Degenera tive changes of the spine. DISC SPACES: Narrowing of the disc C3-C4, C4-C5, C5-C6 and C6-C7. More severe at the level of C5-C6 a nd C6-C7. Multilevel facet joint disease. Multilevel uncovertebral joint osteoarthritic changes. Mult ilevel intervertebral foraminal narrowing. PARASPINOUS SOFT TISSUES: Normal. IMPRESSION: No definite acute osseous abnormality cervical spine. Severe kyphosis. Multilevel degenerative disc disease. Reviewed, dictated and finalized at location A.
--- OUTSIDE RECORDS SUMMARY | 2025-01-23 14:55 | XMS_ITS | Clinical Summary ---
Author Organization [facility] Address [address] [facility] [place] [address] Care Team Providers Care Property Management Supervisor Name Role Phone Unavailable Primary Care Provider Unavailabl e Source Comments [facility],non-owned Affiliates and Associated Physician Practices is amultiple site organization consisting of ambulatory clinics and hospital sitesin [place], [place], [place] and [place]. This disclosure is being madepursuant to the Care Everywhere program and may not contain all information available regarding this patient. 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 Gender Identity Not on file Sexual Orientation [...] VACCINE ( - 2023-2 5 season) 2024 DEPRESSION SCREENING 07/24/2024 INFLUENZA VACCINE (Season Ended) 2025 HEPATITIS B VACCINE Aged Out No longe r eligible based on patient's age to complete this topic HIB VACCINE Aged Out No longer eligi ble based on patient's age to complete this topic HPV VACCINE Aged Out No longer eligi ble based on patient's age to complete this topic MENINGOCOCCAL (Group B) VACC INE SHARED DECISION-MAKING Aged Out No longer eligibl e based on patient's age to complete this topic MENINGOCOCCAL GROUPS A/C/Y/W VACCINE Aged Out No longer eligible b ased on patient's age to complete this topic Insurance [facility] MEDICARE [employer]
--- OUTSIDE RECORDS SUMMARY | 2025-01-23 14:55 | XMS_ITS | Clinical Summary ---
Author Organization [facility] [address] Address [address] [place] [address] Care Team Providers Care Linoleum Layer Helper Name Role Phone Austin Rich MD Primary Care Provider Allergies Active Allergy Reactions Criticality Noted Date Comments Lidocaine Nsaids (Non-Steroidal Anti-Inflammatory Drug) Other (See comments) Low 11/25/2021 ulcers Medications aspirin (BABY ASPIRIN) 81 mg chewable tablet chew 1 tablet (81MG) by oral route every day 0 1 Active Additional Information Patient not taking.Reported on 11/06/2024 omega-3 fatty acids-fish oil 340-1,000 mg capsule take 1 by Oral route every day 0 1 Active Additional Information Patient not taking.Reported on 11/06/2024 magnesium oxide (MAG-OX) 250 mg (150.8 mg elemental) tablet Take 1 tablet (250 mg total) by mouth daily Active cyanocobalamin (Vitamin B-12) 100 mcg tablet Take 10 tablets (1,000 mcg total) by mouth daily Active Active Problems Problem Noted Date Diagnosed Date Venous insufficiency (chronic) (peripheral) 10/22 Assessment & Plan (11/07/2024 9:18 AM CDT): Reticular veins noted around the ankle and feet that are extensive. Minimal reticular veins noted to the calf area no bulky varicosities. Recommend continue daily compression use frequent elevation throughout the day and staying active throughout the day as she can tolerate. No indications for any vascular intervention at this time. 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 Overview (10/28/2016): PURE HYPERGLYCERIDEMIA Abnormal electrocardiography 02/21/2011 Overview (10/28/2016): Abnormal EKG Encounters Date Type Department Care Team Description 11/06/2024 11:00 AM CDT Office Visit [facility] at [address] [place] [id number] Tangela Mcclure NP Venous insufficiency (chronic) (peripheral) (Primary Dx); Asymptomatic varicose veins of bilateral lower extremities from Last 3 Months Surgical History Surgery Date Site/Laterality Comments OTHER SURGICAL HISTORY d & c CHOLECYSTECTOMY Cholecystectomy HYSTERECTOMY Hysterectomy CARPAL TUNNEL RELEASE Bilateral Carpal tunnel release ROTATOR CUFF REPAIR Rotator cuff repair BACK SURGERY 2010 Back surgery Medical History Medical History Date Comments Hx Other Medical prone to blood clots Anxiety disorder Anxiety Family History Medical History Relation Name Comments Cancer Other 1 Family history of Cancer; Diabetes Other 2 Family history of Diabetes mellitus; Heart disease Other 3 Family history of Heart disease; Hypertension Other 4 Family history of Hypertension; Stroke Other 5 Family history of cerebrovascular accident (CVA) - (Added by TW Conv) Relation Name Status Comments Other 1 Other 2 Other 3 Other 4 Other 5 Social History Tobacco Use Types Packs/Day Years Used Date Smoking Tobacco: Never Alcohol Use Standard Drinks/Week Comments No 0 (1 standard drink = 0.6 oz pur e alcohol) Comments Unknown Sex and Gender Information Value Date Recorded Sex Assigned at Not on file 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 Gender Identity Not on file Sexual Orientation Not on file Obstetrics History Last Filed Vital Signs Vital Sign Reading Time Taken Comments Blood Pressure 127/78 11/06/2024 11:18 AM CDT Pulse 62 11/06/2024 11:18 AM CDT Temperature 36.5 C (97.7 F) 11/25/2021 12:05 PM CDT Respiratory Rate 16 11/25/2021 12:05 PM CDT Oxygen Saturation 96% 11/06/2024 11:18 AM CDT Inhaled Oxygen Concentration - - Weight 50.8 kg (112 lb) 11/06/2024 11:18 AM CDT Height 151.1 cm (4' 11.5) 11/06/2024 11:18 AM C DT Body Mass Index 22.24 11/06/2024 11:18 AM CDT Plan of Treatment Health Maintenance Due Date Last Done Comments Depression Screening 1941 Fall Risk Assessment 1941 Osteoporosis Screening-Bone Density Scan 1941 DTaP/Tdap/Td Vaccine (1 - Tdap) 1952 Hepatitis B Screening 1959 Pneumococcal vaccine 65+ (1 of 1 - PCV) 1991 Zoster Vaccine (1 of 2) 1991 Well Visit 65+ 2006 Covid-19 Vaccine ( - season) 2024 08/30/2021, 02/19/2021, 01/22/2021 Influenza Vaccine (Season Ended) 2025 Insurance Member Subscriber Plan / Payer (Ef fective 2021-Present) Name:Rula Nix Relation to Subscriber:Self Name:NixRula Payer ID:[id number] (NAIC) Type:MEDICARE RISK OTHER Address: [place] [id number] [facility] Care Teams Linoleum Layer Helper Relationship Specialty Start Date End Date Austin Rich MD [address] [place] [address] [place] [address] PCP - General Family Practice 10/02/24
--- OUTSIDE RECORDS SUMMARY | 2025-01-23 14:55 | XMS_ITS | Referral Summary ---
Author Organization [facility] [address] Address [address] [place] [address] Care Team Providers Care Records Analyst Name Role Phone Austin Rich MD Primary Care Provider Encounters Date Type Department Care Team Description 11/06/2024 11:00 AM CDT Office Visit [facility] at [address] [place] [address] Tangela Mcclure NP Venous insufficiency (chronic) (peripheral) (Primary Dx); Asymptomatic varicose veins of bilateral lower extremities from Last 3 Months Allergies Active Allergy Reactions Criticality Noted Date [...] Abnormal electrocardiography 02/21/2011 Overview (10/28/2016): Abnormal EKG Social History Tobacco Use Types Packs/Day Years Used Date Smoking Tobacco: Never Alcohol Use Standard Drinks/Week Comments No 0 (1 standard drink = 0.6 oz pur e alcohol) Comments Unknown Sex and Gender Information Value Date Recorded Sex Assigned at Not on file 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
--- OUTSIDE RECORDS SUMMARY | 2025-01-23 14:55 | XMS_ITS | Clinical Summary ---
Author Organization [facility] Address [address] [place] [phone] Phone Care Team Providers Care Emergency Management System Director Name Role Phone Amaya Murphy MD Primary Care Provider [phone] Allergies Active Allergy Reactions Criticality Noted Date Comments Lidocaine Hcl Unknown 01/25/2011 Used in bronchoscopy In 1971-?? Vitamin E (D-Alpha Tocopherol) Rash Low 03/29/2011 Medications ascorbic acid (VITAMIN C) 500 mg Oral tablet Take 500 mg by mouth daily. Active LK-1-NUG-DHA-F maria isabel Oil-Flax-E [phone] cx-mr-pk-unit Oral Cap Take by mouth. 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 Gender Identity Not on file Sexual Orientation Not on file Last Filed Vital Signs Vital Sign Reading Time Taken Comments Blood Pressure 107/66 04/02/2011 4:42 AM CDT Pulse 71 04/02/2011 4:42 AM CDT Temperature 36.1 C (96.9 F) 04/02/2011 4:42 AM CDT Respiratory Rate 18 04/02/2011 4:42 AM CDT Oxygen Saturation 98% 04/02/2011 4:42 AM CDT Inhaled Oxygen Concentration - - Weight 54.4 kg (120 lb) 03/29/2011 10:56 AM CDT Height 152.4 cm (5') 03/17/2011 10:32 AM CDT Body Mass Index 23.44 03/17/2011 10:32 AM CDT Plan of Treatment Health Maintenance Due Date Last Done Comments DTAP/TDAP/TD VACCINES (1 - Tdap) 1960 PNEUMOCOCCAL VACCINE 50+ YEARS (1 of 1 - PCV) 07/22/19 91 ZOSTER VACCINE (1 of 2) 1991 OSTEOPOROSIS SCREENING 2006 RSV VACCINE (60+ or ) (1 - 1-dose 75+ series) 2016 INFLUENZA VACCINE (#1) 2024 Medical Devices Implanted Type Area Compound Specialist Device Identifier Shelf Expiration Date Model / Serial / Lot Log [id number] - Bone & Biologicals - 1 - Infuse Protein Kit [id number] Implanted:Qty: 1 on 03/29/2011 at [facility] Biological Back MEDTRONIC- SOFAMOR DANEK 11/11/2013 [id number] / / [id number] Cage Implanted:Qty: 1 on 03/29/2011 at [facility] Cage N/A: Spine Lumbar DEPUY ORTHO 11/21/2015 L-02-26 / / [id number] Description:Loop -LIF-cage 8 mm,degree small Log [id number] - Depuy Expedium 5.5 Spine Tray - 1 - Dc Xpdm 5.5 Ti Prebnt 45mm [id number] Implanted:Qty: 2 on 03/29/2011 at [facility] Dc Spine Lumbar J&J- DEPUY SPINE INC 5 / / Description:Depuy Expedium T ray Load # 45 Mar 11 11 Log [id number] - Depuy Expedium 5.5 Spine Tray - 1 - Screw Set Inner Implanted:Qty: 4 on 03/29/2011 at [facility] Screw Spine Lumbar J&J- MED PROD 0-OLD / / Log [id number] - Depuy Expedium 5.5 Spine Tray - 1 - Screw Exp Poly 6x45mm Implanted:Qty: 4 on 03/29/2011 at [facility] Screw Spine Lumbar J&J- DEPUY SPINE INC 5 / / Description:Depuy Expedium t ray Load 3 45 Mar 11 Insurance MEDICARE PART A AND B [facility] Advance Directives For more information, please contact: [phone] * Full Code (Latest Code Status on [...] 10:15 AM 03/29/2011 1:39 PM Care Teams Emergency Management System Director Relationship Specialty Start Date End Date Amaya Murphy MD [address] [place] [phone] PCP - General Family Practice 01/25/11
--- OUTSIDE RECORDS SUMMARY | 2025-01-23 14:55 | XMS_ITS ---
Author Name Auto Generated, Auto Generated Organization [facility] ices Address [address] [place] [address] Phone [phone] Care Team Providers Care Petroleum Inspector Supervisor Name Role Phone Grayson Bautista Unavailable MeetAlber robbins Unavailable Functional Status No Results Mental Status No Results Allergies and Intolerances Name Onset Date Reaction Severity Wheat (Allergy) MonOct 15 22:46:00 EDT 2021 alendronate sodium (Allergy) MonOct 15 22:46:00 EDT 2021 Medications Medication Directions Start Date End Date hydrOXYchloroQUINE 200 mg tablet 1 tab TABLET Oral 1 Time Daily MonOct 16 01:00:00 EDT 2021Nov 05 01:00:00 EDT 2021 TUBErsoL 5 tub. unit/0.1 mL intradermal injection solution 0.1 ml VIAL (ML) Intradermal 1 Time Weekly for 2 Weeks MonOct 16 01:00:00 EDT 2021Oct 30 00:59:00 EDT 2021 TUBErsoL 5 tub. unit/0.1 mL intradermal injection solution Read Results VIAL (ML) Other 1 Time Weekly for 2 Weeks MonOct 19 13:00:00 EDT 2021Nov 02 12:59:00 EDT 2021 Problems Active Concerns * Displaced fracture of lateral condyle of right tibia, subsequent encounter for closed fracture withroutine healing* Code: * Start Date: MonOct 15 00:00:00 EDT 2021 * End Date: * Text: * Effusion, right knee* Code: * Start Date: MonOct 15 00:00:00 EDT 2021 * End Date: * Text: * Other synovitis and tenosynovitis, other site* Code: * Start Date: MonOct 15 00:00:00 EDT 2021 * End Date: * Text: * Unilateral primary osteoarthritis, right knee* Code: * Start Date: MonOct 15 00:00:00 EDT 2021 * End Date: * Text: * Rheumatoid arthritis with rheumatoid factor, unspecified* Code: * Start Date: MonOct 15 00:00:00 EDT 2021 * End Date: * Text: * Systemic lupus erythematosus, unspecified* Code: * Start Date: MonOct 15 00:00:00 EDT 2021 * End Date: * Text: * Age-related osteoporosis without current pathological fracture* Code: * Start Date: MonOct 15 00:00:00 EDT 2021 * End Date: * Text: * Localized connective tissue disorder, unspecified* Code: * Start Date: MonOct 15 00:00:00 EDT 2021 * End Date: * Text: * Mixed hyperlipidemia* Code: * Start Date: MonOct 15 00:00:00 EDT 2021 * End Date: * Text: * Personal history of other venous thrombosis and embolism* Code: * Start Date: MonOct 15 00:00:00 EDT 2021 * End Date: * Text: * Vitamin D deficiency, unspecified* Code: * Start Date: MonOct 15 00:00:00 EDT 2021 * End Date: * Text: * Celiac disease* Code: * Start Date: MonOct 15 00:00:00 EDT 2021 * End Date: * Text: * Valgus deformity, not elsewhere classified, unspecified knee* Code: * Start Date: MonOct 15 00:00:00 EDT 2021 * End Date: * Text: * History of falling* Code: * Start Date: MonOct 15 00:00:00 EDT 2021 * End Date: * Text: Reason for Referral Past Medical History
--- OUTSIDE RECORDS SUMMARY | 2025-01-23 14:55 | XMS_ITS | Clinical Summary ---
Author Organization [facility] Address [address] [place] [address] Care Team Providers Care Labels Molder Name Role Phone Austin Rich MD Primary Care Provider Allergies Active Allergy Reactions Criticality Noted Date Comments Alendronate Joint Pain High 08/10/2020 Lidocaine Unknown 01/25/2011 Used in bronchoscopy In 1971-?? Vitamin E Contact Dermatitis 10/30/2018 Topical vitamin e- blisters Medications vitamin B-12 100 MCG tablet Take 1,000 mcg by mouth daily. Active magnesium oxide 250 MG tablet Take 1 tablet by mouth daily. Active hydrocodone-acet aminophen (NORCO) 5-325 MG tablet Take 1 tablet by mouth every 4 (four) hours as needed. 30 tablet 11/05/2018 Active vitamin D3, cholecalciferol, (D 1000) 25 mcg capsule Take by mouth daily. 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 History of appendectomy 08/08/2024 Hyperlipidemia 08/08/2024 Hypomagnesemia 08/08/2024 Intermittent claudication 08/08/2024 Osteoporosis 08/08/2024 Positive antinuclear antibody 08/08/2024 Rectal hemorrhage 08/08/2024 Rheumatoid arthritis (CMS/HCC HHS/HCC) Undifferentiated connective tissue disease (HHS/ HCC) 08/08/2024 Varicose veins of both lower extremities 025 Celiac disease ([facility]) 10/15/2021 History of falling 10/15/2021 Localized connective tissue disorder, unspecifie d 10/15/2021 Personal history of other venous thrombosis and embolism 10/15/2021 Systemic lupus erythematosus, unspecified (CMS/H CC [facility]) 10/15/2021 Valgus deformity, not elsewh ere classified, unspecified knee 10/15/2021 Vitamin D deficiency, unspecified 10/15/2021 Displaced fracture of latera l condyle of right tibia, subsequent encounter for closed fracture with routine healing 10/12/2021 Other synovitis and tenosynovitis, other site Effusion, right knee 10/12/2021 Lumbago 03/29/2011 Family History Medical History Relation Comments Diabetes [...] Information Value Date Recorded Sex Assigned at Female 08/22/2024 2:51 PM MARKETING CONTENT SPECIALIST Legal Sex Female 7:35 PM CDT Gender Identity Not on file Sexual Orientation Not on file Last Filed Vital Signs Vital Sign Reading Time Taken Comments Blood Pressure 130/60 08/22/2024 3:16 PM MARKETING CONTENT SPECIALIST Pulse 82 08/22/2024 3:16 PM MARKETING CONTENT SPECIALIST Temperature 36.5 C (97.7 F) 11/05/2018 11:51 AM CDT Respiratory Rate 16 11/05/2018 11:51 AM CDT Oxygen Saturation 99% 11/05/2018 12:25 PM CDT Inhaled Oxygen Concentration - - Weight 50.6 kg (111 lb 9.6 oz) 08/22/2024 3:16 P M MARKETING CONTENT SPECIALIST Height 152.4 cm (5') 08/22/2024 3:16 PM MARKETING CONTENT SPECIALIST Body Mass Index 21.8 08/22/2024 3:16 PM MARKETING CONTENT SPECIALIST Plan of Treatment Health Maintenance Due Date Last Done Comments DTaP, Tdap and Td Vaccines ( 1 - Tdap) 1960 Pneumococcal Vaccine: 50+ Years (1 of 1 - PCV) 1991 Zoster Vaccines (1 of 2) 1991 Annual Medicare Wellness Visit 2006 Dexa Scan (General) 2006 RSV Immunization or 60+ Years (1 - 1-dose 75+ series) 2016 COVID-19 Vaccine (4 - 2023-2 5 season) 2024 08/30/2021, 02/19/2021, 01/22/2021 Meningococcal B Vaccine Aged Out No l onger eligible based on patient's age to complete this topic Meningococcal Vaccine Aged Out No james irene eligible based on patient's age to complete this topic RSV Immunizations Under 20 Months Aged Out No longer eligible b ased on patient's age to complete this topic Medical Devices Implanted Type Area Flight Test Mechanic Device Identifier Shelf Expiration Date Model / Serial / Lot 2 Screws Lower Back Insurance [employer] Advance Directives * Full Code (Latest Code Status on File) Date Activated Date Inactivated Comments 11/05/2018 11:54 AM 11/05/2018 2:41 PM Care Teams Labels Molder Relationship Specialty Start Date End Date Austin Rich MD [address] [facility] [address] [place] [address] PCP - General FAMILY PRACTICE 08/22/24
[2025-01-23 14:57] VITALS: BP 132/71; PULSE 75; RESP 18; TEMP 36.4; O2SAT 100
[2025-01-23 19:59] VITALS: BP 138/62; PULSE 64; RESP 19; O2SAT 99
--- OUTSIDE RECORDS SUMMARY | 2025-01-23 21:31 | XMS_ITS | Clinical Summary ---
Author Organization [facility] Address [address] [place] [id number] Phone Care Team Providers Care Highway Maintenance Technician Name Role Phone Amaya Murphy MD Primary Care Provider [phone] Allergies Active Allergy Reactions Criticality Noted Date Comments Lidocaine Hcl Unknown 01/25/2011 Used in bronchoscopy In 1971-?? Vitamin E (D-Alpha Tocopherol) Rash Low 03/29/2011 Medications ascorbic acid (VITAMIN C) 500 mg Oral tablet Take 500 mg by mouth daily. Active KA-4-XHP-DHA-F maria isabel Oil-Flax-E [phone] ww-lb-xk-unit Oral Cap Take by mouth. 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 Gender Identity Not on file Sexual Orientation [...] (#1) 2024 Medical Devices Implanted Type Area Sales Floor Manager Device Identifier Shelf Expiration Date Model / Serial / Lot Log [id number] - Bone [employer] Biologicals - 1 - Infuse Protein Kit [id number] Implanted:Qty: 1 on 03/29/2011 at [facility] Biological Back [employer]- SOFAMOR DANEK 11/11/2013 [id number] / / [id number] Cage Implanted:Qty: 1 on 03/29/2011 at [facility] Cage N/A: Spine Lumbar DEPUY ORTHO 11/21/2015 L-02-26 / / [id number] Description:Loop -LIF-cage 8 mm,degree small Log [id number] - Depuy Expedium 5.5 Spine Tray - 1 - Dc Xpdm 5.5 Ti Prebnt 45mm [id number] Implanted:Qty: 2 on 03/29/2011 at [facility] Dc Spine Lumbar J[employer]J- [employer] 5 / / Description:Depuy Expedium T ray Load # 45 Mar 11 11 Log [id number] - Depuy Expedium 5.5 Spine Tray - 1 - Screw Set Inner Implanted:Qty: 4 on 03/29/2011 at [facility] Screw Spine Lumbar J&J- MED PROD 0-OLD / / Log [id number] - Depuy Expedium 5.5 Spine Tray - 1 - Screw Exp Poly 6x45mm Implanted:Qty: 4 on 03/29/2011 at [facility] Screw Spine Lumbar J&J- [employer] 5 / / Description:Depuy Expedium t ray Load 3 45 Mar 11 Insurance MEDICARE PART A AND B [facility] Advance Directives For more information, please contact: [phone] * Full Code (Latest Code Status on [...] 10:15 AM 03/29/2011 1:[address] Maintenance Technician Relationship Specialty Start Date End Date Amaya Murphy MD [address] [place] [id number] PCP - General Family Practice 01/25/11
--- OUTSIDE RECORDS SUMMARY | 2025-01-23 21:32 | XMS_ITS ---
Author Name Auto Generated, Auto Generated Organization [facility] ices Address [address] [place] [address] Phone [phone] Care Team Providers Care Drilling Assistant Name Role Phone Grayson Bautista Unavailable MeetAlber [...]
--- OUTSIDE RECORDS SUMMARY | 2025-01-23 21:32 | XMS_ITS | Clinical Summary ---
Author Organization [facility] Address [address] [facility] [place] [address] Care Team Providers Care Physical Meteorologist Name Role Phone Unavailable Primary Care Provider Unavailabl e Source Comments [facility],non-owned Affiliates and Associated Physician Practices is amultiple site organization consisting of ambulatory clinics and hospital sitesin [place], [place], [place] and [place]. This disclosure is being madepursuant to the Care Everywhere program and may not contain all information available regarding this patient. Last updated 18.[facility] Metric Medical Devices Social History Tobacco Use Types Packs/Day Years Used Date Smoking Tobacco: Never Assessed Comments Unknown Sex and Gender Information Value Date Recorded Sex Assigned at Not on file Legal Sex Female 6:15 AM PRIMARY CARE SALES REPRESENTATIVE Gender Identity Not on file Sexual Orientation [...] patient's age to complete this topic Insurance [facility] MEDICARE [employer] MED[employer]ARE
--- OUTSIDE RECORDS SUMMARY | 2025-01-23 21:32 | XMS_ITS | Referral Summary ---
Author Organization [facility] [address] Address [address] [place] [address] Care Team Providers Care Pharmaceutical Specialty Representative Name Role Phone Austin Rich MD Primary Care Provider Encounters Date Type Department Care Team Description 11/06/2024 11:00 AM CDT Office Visit [facility] at [address] [place] [address] Tangela Mcclure NP Venous insufficiency [...] on file Legal Sex Female 1:45 AM REPAIRER GENERAL Gender Identity Not on file Sexual Orientation [...] Treatment Not on file Insurance Care Teams Pharmaceutical Specialty Representative Relationship Specialty Start Date End Date Austin Rich MD [address] [facility] [address] [address] PCP - General Family Practice 10/02/24
--- OUTSIDE RECORDS SUMMARY | 2025-01-23 21:32 | XMS_ITS | Clinical Summary ---
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 Care Teams Assembler Brazer Relationship Specialty Start Date End Date Austin Rich MD [address] [place] [address] [place] [address] PCP - General Family Practice 10/02/24
--- OUTSIDE RECORDS SUMMARY | 2025-01-23 21:32 | XMS_ITS | Clinical Summary ---
Author Organization [facility] Address [address] [place] [address] Care Team Providers Care Hr Advisor Name Role Phone Austin Rich MD Primary [...] of both lower extremities 025 Celiac disease ([facility]) 10/15/2021 History of falling 10/15/2021 Localized connective tissue disorder, unspecifie d 10/15/2021 Personal history of other venous thrombosis and embolism 10/15/2021 Systemic lupus erythematosus, unspecified (CMS/H CC [facility]) 10/15/2021 Valgus deformity, not elsewh ere classified, [...] Sex Assigned at Female 08/22/2024 2:51 PM FIRE BATTALION CHIEF Legal Sex Female 7:35 PM CDT Gender Identity Not on file Sexual Orientation Not on file Last Filed Vital Signs Vital Sign Reading Time Taken Comments Blood Pressure 130/60 08/22/2024 3:16 PM FIRE BATTALION CHIEF Pulse 82 08/22/2024 3:16 PM FIRE BATTALION CHIEF Temperature 36.5 C (97.7 F) 11/05/2018 11:51 AM CDT Respiratory Rate 16 11/05/2018 11:51 AM CDT Oxygen Saturation 99% 11/05/2018 12:25 PM CDT Inhaled Oxygen Concentration - - Weight 50.6 kg (111 lb 9.6 oz) 08/22/2024 3:16 P M FIRE BATTALION CHIEF Height 152.4 cm (5') 08/22/2024 3:16 PM FIRE BATTALION CHIEF Body Mass Index 21.8 08/22/2024 3:16 PM FIRE BATTALION CHIEF Plan of Treatment Health Maintenance Due Date [...] this topic Medical Devices Implanted Type Area Check Examiner Device Identifier Shelf Expiration Date Model / Serial / Lot 2 Screws Lower Back Insurance [employer] Advance Directives * Full Code (Latest Code Status on File) Date Activated Date Inactivated Comments 11/05/2018 11:54 AM 11/05/2018 2:41 PM Care Teams Hr Advisor Relationship Specialty Start Date End Date Austin Rich MD [address] [facility] [address] [place] [address] PCP - General FAMILY PRACTICE 08/22/24
--- OUTSIDE RECORDS SUMMARY | 2025-01-23 21:32 | XMS_ITS ---
Author Name Auto Generated, Auto Generated Organization [facility] ices Address [address] [place] [address] Phone [phone] Care Team Providers Care Service Porter Name Role Phone Grayson Bautista Unavailable MeetAlber [...]
[2025-01-23] MEDS: LIDOCAINE, EPINEPHRINE, TETRACAINE VISCOUS SOLN 3 ML TOPICAL (22:07)
--- NOTE | 2025-01-23 22:11 | ED.FALL ---
HPI - Fall General Chief Complaint: Fall Stated Complaint: I fell down and went boom. Time Seen by Provider: 01/23/25 21:21 History of Present Illness HPI Narrative: 84-year-old female presenting from her home for evaluation of a ground level mechanical fall. She normally ambulates with a walker but states that she was not using when she twisted to the side and fell down. She landed on her left side including forearm and struck the right knee against the countertop. She did not hit her head or lose consciousness. No blood thinner use or anticoagulants. She has a small abrasion to her left lateral elbow as well as a laceration to her for in left side. Acting appropriately without any nausea, vomiting, headache. She is conversing in full sentences. No neurological deficits. No recent past medical history, otherwise in her normal state of health. Unknown if her tetanus is up today. Related Data Home Medications ?Medication ?Instructions ?Recorded ?Confirmed ?Last Taken ?Type cyanocobalamin (B12)-cobamamide lesley sublingual 11/27/23 06/26/24 Unknown History 5,000 mcg-100 mcg sublingual lozenge (B12) lactobacillus combination no.9 4 4,000 mmu cells PO DAILY 11/27/23 06/26/24 Unknown History billion cell capsule (Adult 50 Plus Probiotic) magnesium oxide 200 mg PO DAILY 06/26/24 06/26/24 Unknown History selenium 50 mcg tablet 50 mcg PO DAILY 06/26/24 06/26/24 Unknown History zinc acetate 50 mg (zinc) capsule 50 mg PO DAILY 06/26/24 06/26/24 Unknown History (Galzin) Allergies Allergy/AdvReac Type Severity Reaction Status Date / Time alendronate sodium Allergy Severe Severe Verified 08/07/24 09:46 joint pain wheat Allergy Mild Abdominal Verified 08/07/24 09:46 Pain acetaminophen (From Tylenol) AdvReac Mild Gastrointestinal Verified 08/07/24 09:46 Upset Topical E Allergy Intermediate Blister Uncoded 08/07/24 09:46 Review of Systems Review of Systems: As reviewed above in HPI [facility] Past Medical History Medical History Prediabetes Lymphedema of right lower extremity History of lupus Rheumatoid arthritis History of deep venous thrombosis (~1987) RLE Closed fracture of tibial plateau (~09/2021) Vitamin D deficiency Ruptured varicose vein Surgically repaired. 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 Esparza History of cholecystectomy History of repair of right rotator cuff (~1990) History of hysterectomy (1986) History of dilatation and curettage (Unknown) Approx and . Dr. Orellana and Dr. Edward repectively. History of lumbosacral spine surgery (03/2011) History of oophorectomy (Unknown) History of appendectomy (1986) History of carpal tunnel release of both wrists (1973) Family History Family History Mother Family history of malignant neoplasm of breast in first degree relative, Onset Age: 70 Family history of arthritis Sibling Family history of arthritis Acute myocardial infarction Father Pneumonia Other Carcinoma of colon Diabetes mellitus Family history of cardiovascular disease Family history of malignant neoplasm Heart disease Social History Social History Social History: Surrogate decision maker: Veronica Baig or Bella Marte, daughters. Code status: Do not resuscitate. Caffeine- none Smoking status: Never smoker Alcohol intake: never Substance use: never Substance use type: does not use Lack of Transportation: YES Lack of Food: Never True Current Housing: I Have Housing Concerned About Future Housing: No Difficulty Paying Gas/Electric Bills: No Difficulty Paying for Meds: No Currently Unemployed: No Education: High School Diploma/GED Difficulty w/ Childcare or Family Care: No Living arrangements: alone Occupation/Education: retired Gender identity (if verbalized by the patient): Female Sexual Orientation (if Verbalized by the Patient): Straight or Heterosexual Spiritual care concerns: No Exam Narrative: GENERAL: [Well-appearing, well-nourished, and in no acute distress.] HEAD: Stellate appearing laceration to the left side forehead without active bleeding, no debris or retained foreign body evident. No palpable skull defect. EYES: [PERRLA and EOMI.] ENT: Nares clear, no rhinorrhea or epistaxis. Mucous membranes moist. NECK: Supple. CHEST: [Clear to auscultation. No respiratory distress.] HEART: [Regular rate and rhythm]. No murmur heard. [Normal peripheral pulses.] ABDOMEN: [Soft, nondistended], [nontender], [No rigidity or guarding] EXTREMITIES: Normal range of motion. Rheumatoid arthritis evident in bilateral hands with subluxation of multiple fingers without any acute events of trauma. No tenderness of palpation or skin discoloration. SKIN: Abrasion to left lateral elbow but full range of motion. NEURO: [No focal deficits]. Alert and oriented [x3.] PSYCH: [Normal mood and affect.] Course Vital Signs Vital signs: Vital Signs Temperature 36.4 C 01/23/25 14:57 Pulse Rate 75 01/23/25 14:57 Respiratory Rate 18 01/23/25 14:57 Blood Pressure 132/71 01/23/25 14:57 Pulse Oximetry 100 01/23/25 14:57 Temperature 36.4 C 01/23/25 14:57 Pulse Rate 64 01/23/25 19:59 Respiratory Rate 19 01/23/25 19:59 Blood Pressure 138/62 01/23/25 19:59 Pulse Oximetry 99 01/23/25 19:59 Procedures Laceration Laceration 1: Date: 01/23/25 Time: 23:59 Site: scalp Side (If applicable): left Size (cm): 3 Description: stellate, irregular and clean Depth: simple, single layer Local Anesthetic: lidocaine 1% Amount of anesthesia used (mL): 5 Pre-repair: wound explored, irrigated extensively and deep structures intact ====== Skin Level ====== Skin layer closed with: nylon Size (cm): 5-0 Number of sutures: 5 Technique: simple, interrupted ====== Subcutaneous Layer ====== ====== Muscle Layer ====== ====== Tendon Layer ====== Dressing: Non adherent dressing MDM - Fall MDM Narrative Medical decision making narrative: 84-year-old female presenting from her home for evaluation of a ground level mechanical fall. She normally ambulates with a walker but states that she was not using when she twisted to the side and fell down. She landed on her left side including forearm and struck the right knee against the countertop. She did not hit her head or lose consciousness. No blood thinner use or anticoagulants. She has a small abrasion to her left lateral elbow as well as a laceration to her for in left side. Acting appropriately without any nausea, vomiting, headache. She is conversing in full sentences. No neurological deficits. No recent past medical history, otherwise in her normal state of health. Unknown if her tetanus is up today. Patient has a history of rheumatoid arthritis with chronic deformities of her hands without any acute findings. She does have some abrasions to left lateral elbow but no restricted range of motion or obvious deformity. Laceration to the left side forehead with no active bleeding. Patient got her tetanus updated hearing given Tylenol for analgesia. Lidocaine and let gel used for anesthesia of the wound for close approximation. CT of the head obtained to rule out intracranial pathology such as a brain bleed from her fall given her risk factors. CT of the cervical spine and x-rays of the left hand, elbow and right knee were obtained. CT of the cervical spine shows no acute osseous abnormality. CT head shows no acute intracranial abnormality. Knee x-ray showed total knee arthroplasty without any fractures or dislocation. X-rays of the hands shows chronic subluxation of the metacarpophalangeal joints clinically on examination from rheumatoid arthritis. No fractures. X-ray without any fractures. Patient's wounds were dressed in her laceration was repaired with 5 stitches. Her left elbow abrasions were wrapped and triple antibiotic ointment applied. She was given wound care instructions and return precautions as well as instructions to follow-up in 10-14 days for wound check and suture removal. She was safe for discharge home at this time her tetanus was updated. Medical Records Attestation: I reviewed the patient's medical records. Imaging Data Attestation: I personally reviewed and interpreted this imaging study as follows: My impression: Impressions Elbow X-Ray 01/23/25 15:44 IMPRESSION: No acute osseous abnormality left elbow. Hand X-Ray 01/23/25 15:45 IMPRESSION: No definite fractures seen. Osteopenia of the bones. Subluxation in the metacarpophalangeal joints. Clinical correlation and follow-up advised. Osteoarthritic changes involving all of the joints in the hand. Knee X-Ray 01/23/25 15:48 IMPRESSION: No acute osseous abnormality right knee. Total knee arthroplasty. Head CT 01/23/25 15:50 IMPRESSION: No acute intracranial findings. Cervical Spine CT 01/23/25 16:15 IMPRESSION: No definite acute osseous abnormality cervical spine. Severe kyphosis. Multilevel degenerative disc disease. Discharge Plan Discharge Clinical Impression: Complex laceration of forehead, CHI (closed head injury), Contusion of elbow, Abrasion of skin Patient Disposition: Home Condition: Stable Instructions: Antibiotic Form, Care For Your Stitches (DC), Laceration (ED), Head Injury (ED), Contusion in Adults (ED), Stitches Removal (ED) Additional Instructions: Follow-up in 10-14 days to have her skin checked and wounds re-evaluated and your sutures removed. Return with any new or worsening concerns otherwise your imaging studies do not show any acute injuries. Take Tylenol and ibuprofen for aches and pains, change the dressings at least once a day unless they soaked through and then change the more frequently. If you experience any wound infections, fevers or bleeding that does not stop return to the emergency department. Patient Language: Swedish Prescriptions: No Action magnesium oxide 200 mg magnesium tablet 200 mg PO DAILY Galzin 50 mg (zinc) capsule 50 mg PO DAILY selenium 50 mcg tablet 50 mcg PO DAILY B12 5,000-100 mcg lozenge sublingual Adult 50 Plus Probiotic 4 billion cell capsule 4,000 mmu cells PO DAILY Rx Instructions: administer with a meal omeprazole 10 mg capsule,delayed release(DR/EC) 10 mg PO DAILY Qty: 20 0RF dicyclomine 10 mg capsule 10 mg PO BID PRN (Reason: abdominal pain) Qty: 10 0RF ergocalciferol (vitamin D2) 1,250 mcg (50,000 unit) capsule 1,250 mcg PO WEEKLY Qty: 12 1RF Follow-up/Referrals: Michael Rich MD [Primary Care Provider] - Time of Disposition: 00:02
[2025-01-23] MEDS: TETANUS,DIPHTHERIA,AC PERTUSSIS ADULT (0.5 ML) BOOSTRIX IM (22:24)
[2025-01-24 00:37] VITALS: BP 134/68; PULSE 69; RESP 15; O2SAT 100
[2025-01-24 00:42] VITALS: BP 134/68; PULSE 69; RESP 15; O2SAT 100
== END 2025-01-24 00:44 | disposition home or self-care (01) ==
PROVIDERS: Emergency Provider Student in an Organized Health Care Education/Training Program; PCP Family Medicine
DX: S01.81XA Laceration without foreign body of other part of head, initial encounter (principal); S50.312A Abrasion of left elbow, initial encounter; M06.9 Rheumatoid arthritis, unspecified; E78.5 Hyperlipidemia, unspecified; Z23 Encounter for immunization; W18.30XA Fall on same level, unspecified, initial encounter
CPT/HCPCS: 12002; 70450; 72125; 73080; 73130; 73564; 90471; 90715; 99284

== ENCOUNTER 2025-04-08 13:34 | Emergency (ER) | payer OTHER, SELFPAY ==
[2025-04-08 13:40] VITALS: BP 131/67; PULSE 78; RESP 20; TEMP 36.9; O2SAT 100
--- NOTE | 2025-04-08 13:52 | ED_ITS ---
HPI - URI/Sore Throat General Chief Complaint: Upper Respiratory Infection Stated Complaint: throat/sniffles/cough Time Seen by Provider: 04/08/25 13:53 Source: patient, RN notes reviewed and old records reviewed Mode of arrival: ambulatory Limitations: no limitations History of Present Illness HPI Narrative: 84 year old female presents to [facility] care accompanied by daughter with complaints of cough, runny nose and sore throat for the past 2 weeks. Patient reports that she has not had any fevers, chills or sweats orany chest pain or shortness of breath. Patient states that she has been taking Benadryl and using Flonase nasal spray without any improvement in her symptoms. MD elicited complaint: cough and sore throat Pertinent past history: other (lupus and RA) Onset (ago): week(s) (2) Consistency: constant Severity: moderate Able to tolerate fluids by mouth: Yes Treatments prior to arrival: other (Benadryl, flonase) Related Data Allergies Allergy/AdvReac Type Severity Reaction Status Date / Time alendronate sodium Allergy Severe Severe Verified 02/28/25 11:00 joint pain wheat Allergy Mild Abdominal Verified 02/28/25 11:00 Pain acetaminophen (From Tylenol) AdvReac Mild Gastrointestinal Verified 02/28/25 11:00 Upset Topical E Allergy Intermediate Blister Uncoded 02/28/25 11:00 Review of Systems 2 Review of Systems: CONSTITUTIONAL: reports malaise, no chills, sweats, or fever. EYES: Denies visual changes, redness, or discharge. ENT: Reports rhinorrhea, congestion, sinus pain, no otalgia and positive for sore throat. CARDIOVASCULAR: Denies chest pain, palpitations, or edema. RESPIRATORY: Reports cough.? Denies dyspnea. GASTROINTESTINAL: Denies abdominal pain, nausea, vomiting, diarrhea SKIN: Denies rash or itching. MUSCULOSKELETAL: Denies myalgia. NEUROLOGIC: Denies headache. All systems reviewed & are unremarkable except as noted in HPI and below [facility] Past Medical History Medical History Prediabetes Lymphedema of right lower extremity History of lupus Rheumatoid arthritis History of deep venous thrombosis (~1987) RLE Closed fracture of tibial plateau (~09/2021) Vitamin D deficiency Ruptured varicose vein Surgically repaired. 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 History of total right knee replacement (~06/07/22) S/P total knee arthroplasty History of foot surgery Vein in R foot, approx 2018, Dr. Esparza History of cholecystectomy History of repair of right rotator cuff (~1990) History of hysterectomy (1986) History of dilatation and curettage (Unknown) Approx [address] Orellana and Dr[address] Yarbroughint repectively. History of lumbosacral spine surgery (03/2011) History of oophorectomy (Unknown) History of appendectomy (1986) History of carpal tunnel release of both wrists (1973) Family History Family History Mother Family history of malignant neoplasm of breast in first degree relative, Onset Age: 70 Family history of arthritis Sibling Family history of arthritis Acute myocardial infarction Father Pneumonia Other Carcinoma of colon Diabetes mellitus Family history of cardiovascular disease Family history of malignant neoplasm Heart disease Social History Social History Social History: Surrogate decision maker: Veronica Baig or Bella Marte, daughters. Code status: Do not resuscitate. Caffeine- none Smoking status: Never smoker Alcohol intake: never Substance use: never Substance use type: does not use Lack of Transportation: YES Lack of Food: Never True Current Housing: I Have Housing Concerned About Future Housing: No Difficulty Paying Gas/Electric Bills: No Difficulty Paying for Meds: No Currently Unemployed: No Education: High School Diploma/GED Difficulty w/ Childcare or Family Care: No Living arrangements: alone Occupation/Education: retired Gender identity (if verbalized by the patient): Female Sexual Orientation (if Verbalized by the Patient): Straight or Heterosexual Spiritual care concerns: No Comments At time of signature, agree with nursing past medical, surgical, social and family history. There is no relevant family history pertinent to the presenting complaint Exam Narrative: GENERAL: chronic ill appearing, well-nourished, and in no acute distress. HEAD: Normocephalic EYES: PERRLA, conjunctivae clear ENT: Nares clear, turbinates edematous and erythematous, clear to light yellow discharge, sinus pressure, Mucous membranes moist. TM pearly gan with dull light reflex bilaterally; no tragal tenderness. Oropharynx erythematous without lesions. Tonsils not enlarged and without exudate, no drooling, no hoarseness, no trismus, uvula midline.post nasal drainage noted NECK: Supple. No lymphadenopathy CHEST: Clear to auscultation, breath sounds equal. No wheezing, rhonchi, rales, or stridor. No respiratory distress, speaks in full sentences.cough noted SAO2 100% on room air HEART: Regular rate and rhythm. No murmur heard. SKIN: Warm, dry, no rash. NEURO: Alert and oriented x3. PSYCH: Normal mood and affect Course Course Emergency Course: Patient is aware of diagnosis, understands and agrees to treatment plan.? Anticipatory guidance given.? Patient agrees to follow-up as directed and is aware of reasons to seek care at the emergency department. Portions of this record may have been created with voice recognition software Level of Care: Express Care Visit Vital Signs Vital signs: Vital Signs Temperature 36.9 C 04/08/25 13:40 Pulse Rate 78 04/08/25 13:40 Respiratory Rate 20 04/08/25 13:40 Blood Pressure 131/67 04/08/25 13:40 Pulse Oximetry 100 04/08/25 13:40 Oxygen Delivery Room Air 04/08/25 13:40 Temperature 36.9 C 04/08/25 13:40 Pulse Rate 78 04/08/25 13:40 Respiratory Rate 04/08/25 13:40 Blood Pressure 131/67 04/08/25 13:40 Pulse Oximetry 100 04/08/25 13:40 Oxygen Delivery Room Air 04/08/25 13:40 Reviewed MDM - URI/Sore Throat MDM Narrative Medical decision making narrative: Differential diagnosis considered: Cedeno virus, strep pharyngitis, allergic rhinitis, upper respiratory tract infection, sinusitis, rhinosinusitis, nasopharyngitis. viral pharyngitis, otitis media, otitis externa, pneumonia, bronchitis, viral cough syndrome, viral syndrome, and influenza.? Exam findings show no acute concerns or changes; patient is non-toxic appearing and is in no distress.? Patient is appropriate for outpatient treatment and follow-up. Differential Diagnosis Differential diagnosis: Likely upper respiratory infection, sinusitis, viral infection, pharyngitis and other (cough and congestion) Medical Records Attestation: I reviewed the patient's medical records. Lab Data Attestation: I reviewed the patient's lab results. Critical Care Time Critical Care Time Critical Care Time: No Discharge Plan Discharge Clinical Impression: URI with cough and congestion Patient Disposition: Home Condition: Stable Instructions: Antibiotic Form, Upper Respiratory Infection (ED), Acute Cough (ED) Additional Instructions: Increase fluids especially juices and water [id number] cough and cold medicine of your choice for your symptoms Zyrtec, Claritin, Emily, or Benadryl as needed Salt water gargles, throat lozenges or throat sprays as desired Antibiotic as directed--finished the medication Follow-up with PCP 5-7 days or sooner if needed If your symptoms persist, change or worsen significantly before you can contact your personal physician then please, without delay, go to the emergency department for further evaluation. Follow-up with PCP in 7-10 days or sooner if needed Follow up with PCP soon in regards to your blood pressure which is elevated above threshold for referral. Blood pressure above 120/80 may indicate pre- hypertension.131/67 Patient Language: Sami Prescriptions: New amoxicillin 875 mg tablet 875 mg PO Q12H Qty: 20 0RF Follow-up/Referrals: Michael Rich MD [Primary Care Provider, [facility]] Time of Disposition: 14:17 Quality [place] Coma Scale Eyes: Open Verbal: Oriented and Alert Motor: Follows Commands [place] Coma Total Score: 15
--- OUTSIDE RECORDS SUMMARY | 2025-04-08 15:15 | XMS_ITS | Clinical Summary ---
Author Organization [facility] Address [address] [place] [phone] Phone Care Team Providers Care Engine Lathe Set Up Operator Name Role Phone Amaya Murphy MD Primary Care Provider [phone] Allergies Active Allergy Reactions Criticality Noted Date Comments Lidocaine Hcl Unknown 01/25/2011 Used in bronchoscopy In 1971-?? Vitamin E (D-Alpha Tocopherol) Rash Low 03/29/2011 Medications ascorbic acid (VITAMIN C) 500 mg Oral tablet Take 500 mg by mouth daily. Active UU-9-IMO-DHA-F maria isabel Oil-Flax-E [phone] sm-ax-dz-unit Oral Cap Take by mouth. Activ e [...] on file Legal Sex Female 6:02 AM CHORE TENDER Gender Identity Not on file Sexual Orientation [...] 1-dose 75+ series) 2016 INFLUENZA VACCINE (#1) 2025 Medical Devices Implanted Type Area Ict Analyst Device Identifier Shelf Expiration Date Model / Serial / Lot Log [id number] - Bone & Biologicals - 1 - Infuse Protein Kit [id number] Implanted:Qty: 1 on 03/29/2011 at [facility] Biological Back MED[employer]- SOFAMOR DANEK 11/11/2013 [id number] / / [id number] Cage Implanted:Qty: 1 on 03/29/2011 at [facility] Cage N/A: Spine Lumbar DEPUY ORTHO 11/21/2015 L-02-26 / / [id number] Description:Loop -LIF-cage 8 mm,degree small Log [id number] - Depuy Expedium 5.5 Spine Tray - 1 - Dc Xpdm 5.5 Ti Prebnt 45mm [id number] Implanted:Qty: 2 on 03/29/2011 at [facility] Dc Spine Lumbar J&J- DEPUY SPINE INC 5 / / Description:Depuy Expedium T ray Load # 45 Mar 11 11 Log [id number] - Depuy Expedium 5.5 Spine Tray - 1 - Screw Set Inner Implanted:Qty: 4 on 03/29/2011 at [facility] Screw Spine Lumbar J&J- MED PROD 0-OLD / / Log [id number] - Depuy Expedium 5.5 Spine Tray - 1 - Screw Exp Poly 6x45mm Implanted:Qty: 4 on 03/29/2011 at [facility] Screw Spine Lumbar J&J- DEPUY SPINE INC 5 / / Description:Depuy Expedium t ray Load 3 45 Mar 11 Insurance MEDICARE PART A AND B [facility] Advance Directives For more information, please contact: [phone] * Full Code (Latest Code Status on [...] 10:15 AM 03/29/2011 1:39 PM Care Teams Engine Lathe Set Up Operator Relationship Specialty Start Date End Date Amaya Murphy MD [address] [place] [id number] PCP - General Family Practice 01/25/11
--- OUTSIDE RECORDS SUMMARY | 2025-04-08 15:15 | XMS_ITS | Clinical Summary ---
Author Organization [facility] Address [address] [place] [address] Care Team Providers Care Ict Project Manager Name Role Phone Austin Rich MD Primary [...] of both lower extremities 025 Celiac disease ([facility]) 10/15/2021 History of falling 10/15/2021 Localized connective tissue disorder, unspecifie d 10/15/2021 Personal history of other venous thrombosis and embolism 10/15/2021 Systemic lupus erythematosus, unspecified (CMS/H CC [facility]) 10/15/2021 Valgus deformity, not elsewh ere classified, [...] Sex Assigned at Female 08/22/2024 2:51 PM DRAW FRAME OPERATOR Legal Sex Female 7:35 PM CDT Gender Identity Not on file Sexual Orientation Not on file Last Filed Vital Signs Vital Sign Reading Time Taken Comments Blood Pressure 130/60 08/22/2024 3:16 PM DRAW FRAME OPERATOR Pulse 82 08/22/2024 3:16 PM DRAW FRAME OPERATOR Temperature 36.5 C (97.7 F) 11/05/2018 11:51 AM CDT Respiratory Rate 16 11/05/2018 11:51 AM CDT Oxygen Saturation 99% 11/05/2018 12:25 PM CDT Inhaled Oxygen Concentration - - Weight 50.6 kg (111 lb 9.6 oz) 08/22/2024 3:16 P M DRAW FRAME OPERATOR Height 152.4 cm (5') 08/22/2024 3:16 PM DRAW FRAME OPERATOR Body Mass Index 21.8 08/22/2024 3:16 PM DRAW FRAME OPERATOR Plan of Treatment Health Maintenance Due Date Last Done Comments DTaP, Tdap and Td Vaccines ( 1 - Tdap) 1960 Pneumococcal Vaccine: 50+ Years (1 of 1 - PCV) 1991 Zoster Vaccines (1 of 2) 1991 Annual Medicare Wellness Visit 2006 Dexa Scan (General) 2006 RSV Immunization or 60+ Years (1 - 1-dose 75+ series) 2016 COVID-19 Vaccine (4 - 2024-2 6 season) 2025 08/30/2021, 02/19/2021, 01/22/2021 Meningococcal B Vaccine Aged Out No l onger eligible based on patient's age to complete this topic Meningococcal Vaccine Aged Out No james irene eligible based on patient's age to complete this topic RSV Immunizations Under 20 Months Aged Out No longer eligible b ased on patient's age to complete this topic Medical Devices Implanted Type Area Animal Chiropractor Device Identifier Shelf Expiration Date Model / Serial / Lot 2 Screws Lower Back Insurance [employer] Advance Directives * Full Code (Latest Code Status on File) Date Activated Date Inactivated Comments 11/05/2018 11:54 AM 11/05/2018 2:41 PM Care Teams Ict Project Manager Relationship Specialty Start Date End Date Austin Rich MD [address] [facility] [address] [place] [address] PCP - General FAMILY PRACTICE 08/22/24
--- OUTSIDE RECORDS SUMMARY | 2025-04-08 15:15 | XMS_ITS | Clinical Summary ---
Author Organization [facility] [address] Address [address] [place] [address] Care Team Providers Care Hand Shoes Sewer Name Role Phone Austin Rich MD Primary [...] Abnormal electrocardiography 02/21/2011 Overview (10/28/2016): Abnormal EKG Surgical History Surgery Date Site/Laterality Comments OTHER [...] on file Legal Sex Female 1:45 AM TRAFFIC SUPERVISOR Gender Identity Not on file Sexual [...] Well Visit 65+ 2006 Covid-19 Vaccine ( season) 2025 08/30/2021, 02/19/2021, 01/22/2021 Influenza Vaccine (#1) 2025 Insurance [facility] Care Teams Hand Shoes Sewer Relationship Specialty Start Date End Date Austin Rich MD [address] [facility] [address] [address] PCP - General Family Practice 10/02/24
--- OUTSIDE RECORDS SUMMARY | 2025-04-08 15:15 | XMS_ITS | Clinical Summary ---
Author Organization [facility] Address [address] [facility] [place] [address] Care Team Providers Care Oracle Soa Developer Name Role Phone Unavailable Primary Care Provider Unavailabl e Source Comments [facility],non-owned Affiliates and Associated Physician Practices is amultiple site organization consisting of ambulatory clinics and hospital sitesin [place], [place], [place] and [place]. This disclosure is being madepursuant to the Care Everywhere program and may not contain all information available regarding this patient. Last updated 18.[facility] [employer] Social History Tobacco Use Types Packs/Day Years Used Date Smoking Tobacco: Never Assessed Comments Unknown Sex and Gender Information Value Date Recorded Sex Assigned at Not on file Legal Sex Female 6:15 AM MEMBER OF CONGRESS Gender Identity Not on file Sexual Orientation Not on file Plan of Treatment Health Maintenance Due Date Last Done Comments BONE DENSITY TESTING 1941 DTAP/TDAP/TD VACCINES (1 - Tdap) 1960 PNEUMOCOCCAL VACCINE 50+ (1 of 1 - PCV) 1991 ZOSTER VACCINE (1 of 2) 1991 Respiratory Syncytial Virus (RSV) Vaccine Pt: or over 60 yrs (1 - 1-dose 75+ series) 2016 DEPRESSION SCREENING 07/24/2024 COVID-19 VACCINE (1 - 2023-2 5 season) 2025 INFLUENZA VACCINE (#1) 2025 HEPATITIS B VACCINE Aged Out No [...] patient's age to complete this topic Insurance [facility] [place] [place] [id number] [employer] MED[employer]
== END 2025-04-08 14:22 | disposition home or self-care (01) ==
PROVIDERS: Emergency Provider Registered Nurse; PCP Family Medicine
DX: J06.9 Acute upper respiratory infection, unspecified (principal); R05.9 Cough, unspecified; R73.03 Prediabetes; M06.9 Rheumatoid arthritis, unspecified; Z86.718 Personal history of other venous thrombosis and embolism; E55.9 Vitamin D deficiency, unspecified; M15.9 Polyosteoarthritis, unspecified; E78.5 Hyperlipidemia, unspecified; M81.0 Age-related osteoporosis without current pathological fracture; Z96.651 Presence of right artificial knee joint
CPT/HCPCS: 99213; G0463

== ENCOUNTER 2025-05-03 11:13 | Emergency (ER) | payer OTHER, SELFPAY ==
--- NOTE | ~2025-05-03 | XR_ITS ---
Abdominal radiograph(s) INDICATION: Low back pain, abdominal pain, constipation COMPARISON: CT abdomen and pelvis 07/24/2024 TECHNIQUE: Upright AP abdomen FINDINGS: Lung bases clear. Scattered colonic gas and stool. Mild scattered small bowel gas. No abnormal abdominal calcifications. No acute bony abnormality. Lower lumbar spine hardware. IMPRESSION: 1. No acute findings. Reviewed, dictated and finalized at location R. IMPRESSION: 1. No acute findings.
--- NOTE | 2025-05-03 11:16 | ED_ITS ---
HPI - Female Genitourinary General Chief complaint: Urogenital-Female Stated complaint: Urinary Problem Time Seen by Provider: 05/03/25 11:16 Source: patient Mode of arrival: ambulatory Limitations: no limitations History of Present Illness HPI Narrative: Rula is an 84 year old female patient presenting to the clinic today with c/o possible UTI x2 days. She reports she is having suprapubic pain, cloudy urine, urinary urgency, and possible blood in her urine. No fever, chills, or body aches. Denies any back pain, nausea, or vomiting. Related Data Home Medications ?Medication ?Instructions ?Recorded ?Confirmed ?Last Taken ?Type ergocalciferol (vitamin D2) 1,250 05/03/25 Unknown H istory mcg (50,000 unit) capsule fluticasone propionate 50 intranasal 05/03/25 Unknown History mcg/actuation nasal spray,suspension Allergies Allergy/AdvReac Type Severity Reaction Status Date / Time alendronate sodium AdvReac Severe Severe Verified 05/03/25 11:20 joint pain acetaminophen (From Tylenol) AdvReac Mild Gastrointestinal Verified 05/03/25 11:20 Upset wheat AdvReac Mild Abdominal Verified 05/03/25 11:20 Pain NSAIDS (Non-Steroidal AdvReac Ulcers Verified 05/03/25 11:20 Anti-Inflamma vitamin E (d-alpha AdvReac Rash Verified 05/03/25 11:48 tocopherol) Review of Systems Review of Systems: Pertinent positives per HPI. Patient denies any fever, chills, rash, headache, visual changes, dizziness, cough, runny nose, sore throat, shortness of breath, chest pain, palpitations, nausea, vomiting, diarrhea, constipation, PMFSH Past Medical History Medical History Prediabetes Lymphedema of right lower extremity History of lupus Rheumatoid arthritis History of deep venous thrombosis (~1987) RLE Closed fracture of tibial plateau (~09/2021) Vitamin D deficiency Ruptured varicose vein Surgically repaired. 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 History of total right knee replacement (~06/07/22) S/P total knee arthroplasty History of foot surgery Vein in R foot, approx 2018, Dr. Esparza History of cholecystectomy History of repair of right rotator cuff (~1990) History of hysterectomy (1986) History of dilatation and curettage (Unknown) Approx '[address] Orellana and Dr. Edward repectively. History of lumbosacral spine surgery (03/2011) History of oophorectomy (Unknown) History of appendectomy (1986) History of carpal tunnel release of both wrists (1973) Family History Family History Mother Family history of malignant neoplasm of breast in first degree relative, Onset Age: 70 Family history of arthritis Sibling Family history of arthritis Acute myocardial infarction Father Pneumonia Other Carcinoma of colon Diabetes mellitus Family history of cardiovascular disease Family history of malignant neoplasm Heart disease Social History Social History Social History: Surrogate decision maker: Veronica Baig or Bella Marte, daughters. Code status: Do not resuscitate. Caffeine- none Smoking status: Never smoker Alcohol intake: never Substance use: never Substance use type: does not use Lack of Transportation: YES Lack of Food: Never True Current Housing: I Have Housing Concerned About Future Housing: No Difficulty Paying Gas/Electric Bills: No Difficulty Paying for Meds: No Currently Unemployed: No Education: High School Diploma/GED Difficulty w/ Childcare or Family Care: No Living arrangements: alone Occupation/Education: retired Gender identity (if verbalized by the patient): Female Sexual Orientation (if Verbalized by the Patient): Straight or Heterosexual Spiritual care concerns: No Comments At the time of my signature, I reviewed and agree with the nursing past medical, surgical, social, and family history. There is no relevant family history pertinent to the patient complaint. Exam Narrative: General: Well-developed, well nourished, in no apparent distress. Head: Normocephalic, atraumatic. Cardio: Regular rate and rhythm, s1 and s2 normal, no murmur appreciated. Resp: Clear to auscultation bilaterally, no rhonchi, rales, wheezing or rubs. Abdomen: Soft, pliable, bowel sounds present in all quadrants, suprapubic- tender, lower abdomen tender to palpation, low back pain, no organomegly, no CVAT tenderness. Course Course Emergency Course: Portions of this record may have been created with voice recognition software. Level of Care: Express Care Visit Vital Signs Vital signs: Vital Signs Temperature 36.6 C 05/03/25 11:19 Pulse Rate 62 05/03/25 11:19 Respiratory Rate 18 05/03/25 11:19 Blood Pressure 130/65 05/03/25 11:19 Pulse Oximetry 100 05/03/25 11:19 Oxygen Delivery Room Air 05/03/25 11:19 Temperature 36.6 C 05/03/25 11:19 Pulse Rate 62 05/03/25 11:19 Respiratory Rate 18 05/03/25 11:19 Blood Pressure 130/65 05/03/25 11:19 Pulse Oximetry 100 05/03/25 11:19 Oxygen Delivery Room Air 05/03/25 11:19 Vital signs reviewed MDM - Female Genitourinary MDM Narrative Medical decision making narrative: At the time of visit patient is resting comfortably on the exam table. Patient appears to be nontoxic. C/o possible UTI x2 days. She reports she is having suprapubic pain, cloudy urine, urinary urgency, and possible blood in her urine. No fever, chills, or body aches. Denies any back pain, nausea, or vomiting. On exam patient has some suprapubic tenderness, lower abdominal tenderness, and low back pain. Urinalysis and KUB x-ray was ordered Labs: Urinalysis shows 1+ blood and 1+ ketone. No glucose. No nitrates or leukocytes. Urine culture was ordered Diagnostics: KUB x-rays negative for any acute abdomen pathology. Plan: Patient has hematuria with 1+ ketone. Recommend follow-up with her PCP this week for further evaluation-may need labs and further diagnostic testing. Supportive measures were discussed with the patient and they voiced understanding discharge instructions and agrees to treatment plan. Return precautions reviewed Differential Diagnosis Differential diagnosis: Likely urinary tract infection and cystitis Lab Data Labs: Lab Results 05/03/25 Range/Units 11:38 POC Urine Color Yellow POC Urine Clarity Clear POC Urine pH 5.5 POC Ur Specif [place] 1.000 POC Urine Protein Negative (Negative) POC Ur Glucose (UA) Negative (Negative) POC Urine Ketones 1+ (Negative) POC Urine Blood 1+ (Negative) POC Urine Nitrite Negative (Negative) POC Urine Bilirubin Negative (Negative) POC Urine Urobilinogen 0.2 POC U Leukocyte Esteras Negative (Negative) Imaging Data Radiologist's impression: ITS Impressions Abdomen X-Ray 05/03/25 12:44 IMPRESSION: 1. No acute findings. Discharge Plan Discharge Clinical Impression: Hematuria Qualifiers: Hematuria type: unspecified type Qualified Code(s): R31.9 - Hematuria, unspecified Patient Disposition: Home Condition: Stable Instructions: Antibiotic Form, Hematuria (ED) Additional Instructions: KUB x-ray was completedand shows no acute abdominal findings Urinalysis shows 1+ ketone and 1+ blood Increase fluids and stay well hydrated Wipe front to back. May use wet wipes. Avoid tub baths Wear cotton panties Avoid tight clothing up against the genitals Follow up with your PCP in 2-3 days if symptoms persist-will likely need labs and further diagnostic testing if symptoms persist. If your symptoms worsen recommend going to the emergency room for further evaluation-fever, weakness, lethargy, confusion, shortness of breath, chest pain, or worsening abdominal pain Patient Language: German Prescriptions: No Action ergocalciferol (vitamin D2) 1,250 mcg (50,000 unit) capsule fluticasone propionate 50 mcg/actuation spray,suspension INTRANASAL cetirizine [Zyrtec] 10 mg tablet 10 mg PO DAILY Qty: 90 0RF Follow-up/Referrals: Michael Rich MD [Primary Care Provider, Family Practice] Time of Disposition: 12:58 Quality NIHSS Nursing Documentation ED NIHSS nursing documentation: reviewed/agree
--- OUTSIDE RECORDS SUMMARY | 2025-05-03 11:16 | XMS_ITS | Clinical Summary ---
Author Organization [facility] Address [address] [place] [phone] Phone Care Team Providers Care Coping Machine Operator Name Role Phone Amaya Murphy MD Primary Care Provider [phone] Allergies Active Allergy Reactions Criticality Noted Date Comments Lidocaine Hcl Unknown 01/25/2011 Used in bronchoscopy In 1971-?? Vitamin E (D-Alpha Tocopherol) Rash Low 03/29/2011 Medications ascorbic acid (VITAMIN C) 500 mg Oral tablet Take 500 mg by mouth daily. Active RJ-8-ZAI-DHA-F maria isabel Oil-Flax-E [phone] vf-tx-se-unit Oral Cap Take by mouth. Activ e [...] on file Legal Sex Female 6:02 AM RESORT KEEPER Gender Identity Not on file Sexual Orientation [...] (#1) 2025 Medical Devices Implanted Type Area Health Care Assistant Device Identifier Shelf Expiration Date Model / Serial / Lot Log [id number] - Bone & Biologicals - 1 - Infuse Protein Kit [id number] Implanted:Qty: 1 on 03/29/[address] [facility] Biological Back [employer]- SOFAMOR DANEK 11/11/2013 [id number] / / [id number] Cage Implanted:Qty: 1 on 03/29/[address] [facility] Cage N/A: Spine Lumbar DEPUY ORTHO 11/21/2015 L-02-26 / / [id number] Description:Loop -LIF-cage 8 mm,degree small Log [id number] - Depuy Expedium 5.5 Spine Tray - 1 - Dc Xpdm 5.5 Ti Prebnt 45mm [id number] Implanted:Qty: 2 on 03/29/[address] [facility] Dc Spine Lumbar J&J- DEPUY SPINE INC 5 / / Description:Depuy Expedium T ray Load # 45 Mar 11 11 Log [id number] - Depuy Expedium 5.5 Spine Tray - 1 - Screw Set Inner Implanted:Qty: 4 on 03/29/[address] [facility] Screw Spine Lumbar J&J- MED PROD 0-OLD / / Log [id number] - Depuy Expedium 5.5 Spine Tray - 1 - Screw Exp Poly 6x45mm Implanted:Qty: 4 on 03/29/[address] [facility] Screw Spine Lumbar J&J- DEPUY SPINE INC 5 / / Description:Depuy Expedium t ray Load 3 45 Mar 11 Insurance MEDICARE PART A AND B [facility] Advance Directives For more information, please contact: [phone] * Full Code (Latest Code Status on [...] 10:15 AM 03/29/2011 1:39 PM Care Teams Coping Machine Operator Relationship Specialty Start Date End Date Amaya Murphy MD [address] [place] [id number] PCP - General Family Practice 01/25/11
--- OUTSIDE RECORDS SUMMARY | 2025-05-03 11:16 | XMS_ITS | Clinical Summary ---
Author Organization [facility] Address [address] [facility] [place] [address] Care Team Providers Care Soft Hat Binder Name Role Phone Unavailable Primary Care Provider Unavailabl e Source Comments [facility],non-owned Affiliates and Associated Physician Practices is amultiple site organization consisting of ambulatory clinics and hospital sitesin [place], [place], [place]. This disclosure is being madepursuant to the Care Everywhere program and may not contain all information available regarding this patient. Last updated 18.[facility] [employer] Social History Tobacco Use Types Packs/Day Years Used Date Smoking Tobacco: Never Assessed Comments Unknown Sex and Gender Information Value Date Recorded Sex Assigned at Not on file Legal Sex Female 6:15 AM ROOFER HELPER VINYL COATING Gender Identity Not on file Sexual Orientation [...] patient's age to complete this topic Insurance [facility] [place] [address] [place] [id number] [employer]
--- OUTSIDE RECORDS SUMMARY | 2025-05-03 11:16 | XMS_ITS | Clinical Summary ---
Author Organization [facility] [address] Address [address] [place] [address] Care Team Providers Care Machine Operator General Name Role Phone Austin Rich MD Primary [...] on file Legal Sex Female 1:45 AM DIRECTOR ONLINE MARKETING Gender Identity Not on file Sexual Orientation [...] 02/19/2021, 01/22/2021 Influenza Vaccine (#1) 2025 Insurance [facility] Care Teams Machine Operator General Relationship Specialty Start Date End Date Austin Rich MD [address] [facility] [address] [address] PCP - General Family Practice 10/02/24
--- OUTSIDE RECORDS SUMMARY | 2025-05-03 11:16 | XMS_ITS | Clinical Summary ---
Author Organization [facility] Address [address] [place] [address] Care Team Providers Care Assistant Sales Director Name Role Phone Austin Rich MD Primary [...] of both lower extremities 025 Celiac disease ([facility]) 10/15/2021 History of falling 10/15/2021 Localized connective tissue disorder, unspecifie d 10/15/2021 Personal history of other venous thrombosis and embolism 10/15/2021 Systemic lupus erythematosus, unspecified (CMS/H CC [facility]) 10/15/2021 Valgus deformity, not elsewh ere [...] Sex Assigned at Female 08/22/2024 2:51 PM RADIOLOGIC ELECTRONIC SPECIALIST Legal Sex Female 7:35 PM CDT Gender Identity Not on file Sexual Orientation Not on file Last Filed Vital Signs Vital Sign Reading Time Taken Comments Blood Pressure 130/60 08/22/2024 3:16 PM RADIOLOGIC ELECTRONIC SPECIALIST Pulse 82 08/22/2024 3:16 PM RADIOLOGIC ELECTRONIC SPECIALIST Temperature 36.5 C (97.7 F) 11/05/2018 11:51 AM CDT Respiratory Rate 16 11/05/2018 11:51 AM CDT Oxygen Saturation 99% 11/05/2018 12:25 PM CDT Inhaled Oxygen Concentration - - Weight 50.6 kg (111 lb 9.6 oz) 08/22/2024 3:16 P M RADIOLOGIC ELECTRONIC SPECIALIST Height 152.4 cm (5') 08/22/2024 3:16 PM RADIOLOGIC ELECTRONIC SPECIALIST Body Mass Index 21.8 08/22/2024 3:16 PM RADIOLOGIC ELECTRONIC SPECIALIST Plan of Treatment Health Maintenance Due [...] 2024-2 6 season) 2025 08/30/2021, 02/19/2021, 01/22/2021 Influenza Adult (#1) 2025 Meningococcal B Vaccine Aged Out No l onger eligible based on patient's age to complete this topic Meningococcal Vaccine Aged Out No james irene eligible based on patient's age to complete this topic RSV Immunizations Under 20 Months Aged Out No longer eligible b ased on patient's age to complete this topic Medical Devices Implanted Type Area Tour Sales Representative Device Identifier Shelf Expiration Date Model / Serial / Lot 2 Screws Lower Back Insurance [employer] Advance Directives * Full Code (Latest Code Status on File) Date Activated Date Inactivated Comments 11/05/2018 11:54 AM 11/05/2018 2:41 PM Care Teams Assistant Sales Director Relationship Specialty Start Date End Date Austin Rich MD [address] [facility] [address] [place] [address] PCP - General FAMILY PRACTICE 08/22/24
[2025-05-03 11:19] VITALS: BP 130/65; PULSE 62; RESP 18; TEMP 36.6; O2SAT 100
[2025-05-03 11:40] LABS: EDUAAPPEAR Clear; EDUABILI Negative (Negative); EDUABLOOD 1+ (Negative); EDUACOLOR1 Yellow; EDUAGLUCOSE Negative (Negative); EDUAKETONE 1+ (Negative); EDUALEUKO Negative (Negative); EDUANITRATE Negative (Negative); EDUAPH 5.5; EDUAPROTEIN Negative (Negative); EDUASPGRAVITY 1.000; EDUAUROBILI 0.2
== END 2025-05-03 13:11 | disposition home or self-care (01) ==
PROVIDERS: Emergency Provider Nurse Practitioner Family; PCP Family Medicine
DX: R31.9 Hematuria, unspecified (principal); E78.5 Hyperlipidemia, unspecified; M81.0 Age-related osteoporosis without current pathological fracture; M15.9 Polyosteoarthritis, unspecified; E55.9 Vitamin D deficiency, unspecified; M06.9 Rheumatoid arthritis, unspecified; R73.03 Prediabetes; Z96.651 Presence of right artificial knee joint
CPT/HCPCS: 74018; 81003; 87086; 99213; G0463

== ENCOUNTER 2025-05-06 12:33 | Outpatient (CLI) | payer OTHER, SELFPAY ==
--- NOTE | ~2025-05-06 | US_ITS ---
EXAMINATION: US soft tissue groin RT DATE: 05/06/2025 13:00 INDICATION: Right lower quadrant abdominal swelling and mass at the right groin TECHNIQUE: Multiple grayscale and Doppler ultrasound images of the region of concern at the right groin were obtained. COMPARISON: CT abdomen and pelvis dated 07/24/2024 and 03/02/2017 FINDINGS: Normal-sized 1.9 x 0.8 x 0.5 similar right inguinal lymph node with normal central echogenic fatty hilum. There are a couple small anechoic fluid collections measuring 10 x 5 mm and 1.5 x 0.7 cm at the right groin. A similar 2.2 x 1.2 cm small fluid collection is seen in the right groin on the prior CT which appears to represent extension of a minimal amount of free intraperitoneal fluid within a small right femoral hernia which also contains some fat and which along with the small fluid collections measures 3.2 x 1.1 x 2.0 cm. IMPRESSION: 1. Fat and minimal amount of fluid within a small right femoral hernia, minimally changed since prior CT studies dating back to 03/02/2017. Reviewed, dictated and finalized at location A. IMPRESSION: 1. Fat and minimal amount of fluid within a small right femoral hernia, minimal ly changed since prior CT studies dating back to 03/02/2017.
== END 2025-05-06 12:34 | disposition home or self-care (01) ==
LOC: GOSHIMG 12:33
PROVIDERS: PCP Nurse Practitioner Family; Visit Provider Nurse Practitioner Family
DX: K41.90 Unilateral femoral hernia, without obstruction or gangrene, not specified as recurrent (principal)
CPT/HCPCS: 76882

== ENCOUNTER 2025-05-06 14:29 | Outpatient (NON) | payer OTHER, SELFPAY ==
--- OUTSIDE RECORDS SUMMARY | 2025-05-06 16:25 | XMS_ITS | Clinical Summary ---
Author Organization [facility] Address [address] [place] [address] Care Team Providers Care Glass Maker Name Role Phone Austin Rich MD Primary [...] multiple sites Hematuria 08/08/2024 Histoplasmosis with pneumonia 08/08/2024 History of appendectomy 08/08/2024 Hyperlipidemia 08/08/2024 Hypomagnesemia 08/08/2024 Intermittent claudication 08/08/2024 Osteoporosis 08/08/2024 Positive antinuclear antibody 08/08/2024 Rectal hemorrhage 08/08/2024 Rheumatoid arthritis 08/08/2024 Undifferentiated connective tissue disease 08/08 Varicose veins of both lower extremities 025 Celiac disease 10/15/2021 History of falling 10/15/2021 Localized connective tissue disorder, unspecifie d 10/15/2021 Personal history of other venous thrombosis and embolism 10/15/2021 Systemic lupus erythematosus, unspecified 2021 Valgus deformity, not elsewh ere classified, unspecified [...] Sex Assigned at Female 08/22/2024 2:51 PM FLAT BED KNITTER Legal Sex Female 7:35 PM CDT Gender Identity Not on file Sexual Orientation Not on file Last Filed Vital Signs Vital Sign Reading Time Taken Comments Blood Pressure 130/60 08/22/2024 3:16 PM FLAT BED KNITTER Pulse 82 08/22/2024 3:16 PM FLAT BED KNITTER Temperature 36.5 C (97.7 F) 11/05/2018 11:51 AM CDT Respiratory Rate 16 11/05/2018 11:51 AM CDT Oxygen Saturation 99% 11/05/2018 12:25 PM CDT Inhaled Oxygen Concentration - - Weight 50.6 kg (111 lb 9.6 oz) 08/22/2024 3:16 P M FLAT BED KNITTER Height 152.4 cm (5') 08/22/2024 3:16 PM FLAT BED KNITTER Body Mass Index 21.8 08/22/2024 3:16 PM FLAT BED KNITTER Plan of Treatment Health Maintenance Due Date [...] this topic Medical Devices Implanted Type Area Sheet Folder Device Identifier Shelf Expiration Date Model / Serial / Lot 2 Screws Lower Back Insurance [employer] Advance Directives * Full Code (Latest Code Status on File) Date Activated Date Inactivated Comments 11/05/2018 11:54 AM 11/05/2018 2:41 PM Care Teams Glass Maker Relationship Specialty Start Date End Date Austin Rich MD [address] [facility] [address] [place] [address] PCP - General FAMILY PRACTICE 08/22/24
--- OUTSIDE RECORDS SUMMARY | 2025-05-06 16:25 | XMS_ITS | Clinical Summary ---
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
--- OUTSIDE RECORDS SUMMARY | 2025-05-06 16:25 | XMS_ITS | Clinical Summary ---
Author Organization [facility] Address [address] [facility] [place] [address] Care Team Providers Care Poultry Farmer Name Role Phone Unavailable Primary Care Provider Unavailabl e Source Comments [facility],non-owned Affiliates and Associated Physician Practices is amultiple site organization consisting of ambulatory clinics and hospital sitesin [place], [place], [place] and [place]. This disclosure is being madepursuant to the Care Everywhere program and may not contain all information available regarding this patient. 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
--- OUTSIDE RECORDS SUMMARY | 2025-05-06 16:25 | XMS_ITS | Clinical Summary ---
Author Organization [facility] Address [address] [place] [id number] Phone Care Team Providers Care Buttermaker Name Role Phone Amaya Murphy MD Primary Care Provider [phone] Allergies Active Allergy Reactions Criticality Noted Date Comments Lidocaine Hcl Unknown 01/25/2011 Used in bronchoscopy In 1971-?? Vitamin E (D-Alpha Tocopherol) Rash Low 03/29/2011 Medications ascorbic acid (VITAMIN C) 500 mg Oral tablet Take 500 mg by mouth daily. Active CI-2-TWY-DHA-F maria isabel Oil-Flax-E [phone] sr-lk-yx-unit Oral Cap Take by mouth. 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 Gender Identity Not on file Sexual Orientation [...] (#1) 2025 Medical Devices Implanted Type Area Hide Dropper Device Identifier Shelf Expiration Date Model / Serial / Lot Log [id number] - [employer] - 1 - Infuse Protein Kit [id number] Implanted:Qty: 1 on 03/29/2011 at [facility] Biological Back [employer]- SOFAMOR DANEK 11/11/2013 [id number] / / [id number] Cage Implanted:Qty: 1 on 03/29/2011 at [facility] Cage N/A: Spine Lumbar DEPUY ORTHO 11/21/2015 L-02-26 / / [id number] Description:Loop -LIF-cage 8 mm,degree small Log [id number] - Depuy Expedium 5.5 Spine Tray - 1 - Dc Xpdm 5.5 Ti Prebnt 45mm [id number] Implanted:Qty: 2 on 03/29/2011 at [facility] Dc Spine Lumbar [employer]- [employer] 5 / / Description:Depuy Expedium T ray Load # 45 Mar 11 11 Log [id number] - Depuy Expedium 5.5 Spine Tray - 1 - Screw Set Inner Implanted:Qty: 4 on 03/29/2011 at [facility] Screw Spine Lumbar J&J- MED PROD 0-OLD / / Log [id number] - Depuy Expedium 5.5 Spine Tray - 1 - Screw Exp Poly 6x45mm Implanted:Qty: 4 on 03/29/2011 at [facility] Screw Spine Lumbar J[employer]- [employer] 5 / / Description:Depuy Expedium t ray Load 3 45 Mar 11 Insurance MEDICARE PART A AND B [facility] Advance Directives For more information, please contact: [phone] * Full Code (Latest Code Status on [...] 10:15 AM 03/29/2011 1:39 PM Care Teams Buttermaker Relationship Specialty Start Date End Date Amaya Murphy MD [address] [place] [id number] PCP - General Family Practice 01/25/11
[2025-05-06 17:33] LABS: Add Urine Microscopic? YES; Appearance Urine Clear (Clear); Glucose Urine UA Negative (Negative); Leukocyte Esterase Ur Negative LEU/UL (Negative); Nitrate Urine Negative (Negative); Non Pathogenic Casts 0-2; Specific Grav Ur 1.018 (1.001-1.035)
== END 2025-05-06 14:30 | disposition home or self-care (01) ==
LOC: ANHGOSHLAB 14:30
PROVIDERS: PCP Nurse Practitioner Family; Visit Provider Nurse Practitioner Family
DX: R30.0 Dysuria (principal); R31.9 Hematuria, unspecified
CPT/HCPCS: 81001; 87086

== ENCOUNTER 2025-06-30 12:36 | Outpatient (CLI) | payer OTHER, SELFPAY ==
--- NOTE | ~2025-06-30 | DEXA_ITS ---
Bone Density Report Name: KATY MORAN Age: 84 Sex: Female Ethnicity: White Date of : 1940 Indication: osteopenia; height loss; hysterectomy; rheumatoid arthritis; Referring Provider: ERICKSON HANEY Study: Bone densitometry was performed. Exam Date: June 30, 2025 Accession number: [id number] Bone Density: Region BMD T-score Z-score Classification Femoral Neck (Left) 0.552 -2.7 -0.2 Osteoporosis Total Hip (Left) 0.647 -2.4 -0.1 Osteopenia Femoral Neck (Right) 0.472 -3.4 -0.9 Osteoporosis Total Hip (Right) 0.584 -2.9 -0.7 Osteoporosis Total Hip Mean 0.616 -2.7 -0.4 Osteoporosis World Health Organization criteria for BMD impression classify patients as: Normal (T-score at or above -1.0), Osteopenia (T-score between -1.0 and -2.5), or Osteoporosis (T-score at or below -2.5). 10-year Fracture Risk: FRAX not reported because: Some T-score for Spine Total or Hip Total or Femoral Neck at or below -2.5 Previous Exams: Region Exam Age BMD T-score BMD Change BMD Change Date g/cm2 vs Baseline vs Previous Total Hip(Left) 06/30/2025 84 0.647 -2.4 -0.050 (-7.1%) -0.050 (-7.1%) 08/05/2019 79 0.697 -2.0 Total Hip(Right) 06/30/2025 84 0.584 -2.9 -0.098 (-14.3% -0.098 (-14.3% 08/05/2019 79 0.682 -2.1 *Denotes significance at 95% confidence level, LSC for Total Hip = 0.027 g/cm2 # Denotes dissimilar scan types or analysis methods Clinical Information Provided by Patient: Has rheumatoid arthritis Has the following medical conditions: Hysterectomy Patient maximum height was 63.0 Menopause Age: 49 No regular weight bearing exercise Drinks caffeinated beverages Onset of menses at age 13 Number of children 3 Impression: The patient has osteoporosis, based on the Right Femoral Neck T-score. No significant bone loss was observed. Discussion: INCREASED RISK OF FRACTURE. BONE DENSITY IS UNDESIRABLY LOW AT ONE OR MORE SKELETAL SITES, CONSISTENT WITH POSTMENOPAUSAL OSTEOPOROSIS. This patient's lowest T-score meets the World Health Organization's (WHO) criteria for osteoporosis at one or more sites (T-score -2.5 or below). In untreated patients, the risk of osteoporotic fracture increases approximately two-fold for each 1.0 SD decrease in T-score. Low bone density is not the only risk factor for fracture; also consider factors such as patient's age, frailty or poor health, risk of falling, risk of injury, previous osteoporotic fracture, family history of osteoporosis, cigarette smoking, low body weight, etc. Not everyone with low bone mineral density has osteoporosis; osteomalacia and other metabolic bone disorders should also be considered. Patients who have osteoporosis should be evaluated for specific diseases and conditions (secondary causes) that may cause or contribute to bone loss. The [place] Association of Clinical Endocrinologists (AACE) and National Osteoporosis Foundation (NOF) recommend pharmacologic intervention for all postmenopausal women whose T-score is in this range. The patient should follow a healthful lifestyle (good nutrition with adequate calcium and vitamin D, and appropriate weight-bearing exercise). Follow-Up: Consider a repeat BMD and Vertebral Fracture Assessment (VFA) exam in 2 years or sooner if medically necessary, to reassess this patient's status. Reported by: ANTON on 06/30/2025 2:09:00 PM. Reviewed, dictated and finalized at location A.
== END 2025-06-30 12:37 | disposition home or self-care (01) ==
PROVIDERS: PCP Family Medicine; Visit Provider Family Medicine
DX: Z78.0 Asymptomatic menopausal state (principal); M81.0 Age-related osteoporosis without current pathological fracture; M85.852 Other specified disorders of bone density and structure, left thigh
CPT/HCPCS: 77080

== ENCOUNTER 2025-06-30 13:37 | Outpatient (CLI) | payer OTHER, SELFPAY ==
[2025-06-30 18:53] LABS: Hemoglobin A1C 5.7 % (<5.7)
[2025-06-30 18:57] LABS: Hematocrit 40.0 % (37.0-47.0); Hemoglobin 12.7 g/dL (12.0-15.0); Immature Granulocyte Percent A 0.3 % (0-0.5); Lymphocytes Absolute Auto 1.87 K/mm3 (0.9-3.2); Mean Corpuscular HGB Conc 31.8 g/dl (32-36); Mean Corpuscular Hemoglobin 29.2 pg (26-34); Mean Corpuscular Volume 92.0 fl (80-100); Nucleated Red Blood Cells Absolute Auto 0.000 K/mm3 (0.0-0.012); Nucleated Red Blood Cells Perc 0.0 % (0.0-0.2); Platelet Count Result 223 k/mm3 (150-375); Red Blood Count 4.35 M/mm3 (4.2-5.4); White Blood Count 6.3 K/mm3 (4.5-10.0)
[2025-06-30 19:02] LABS: Alanine Aminotransferase 17 U/L (6-35); Albumin Level 4.5 g/dL (3.5-5.1); Alkaline Phosphatase 96 U/L (38-126); Anion Gap 4 mmol/L (4-12); Aspartate Amino Transferase 42 U/L (14-36); Bilirubin,Total 0.9 mg/dL (0.2-1.3); Blood Urea Nitrogen 21 mg/dL (7-17); Calcium 10.2 mg/dL (8.4-10.2); Carbon Dioxide 29 mmol/L (22-30); Chloride 104 mmol/L (98-107); Cholesterol 208 mg/dL (0-200); Estimated Glomerular Filt Rate > 60; Glucose 87 mg/dL (65-110); HDL Direct 79 mg/dL; Potassium 3.9 mmol/L (3.4-5.0); Sodium 137 mmol/L (137-145); Total Protein 8.2 g/dL (6.3-8.2); Triglycerides 69 mg/dL (<150)
[2025-06-30 19:10] LABS: Parathyroid Intact 105.8 pg/mL (14.5-75.2)
[2025-06-30 19:53] LABS: Thyroid Stimulating Hormone Reflex 1.210 uIU/mL (0.465-4.68)
[2025-06-30 19:59] LABS: Vitamin B12 473.0 pg/mL (239-931)
[2025-07-01 14:08] LABS: Calcium, Ionized 5.5 mg/dL (4.5-5.6)
== END 2025-06-30 13:38 | disposition home or self-care (01) ==
LOC: ANHGOSHLAB 13:37
PROVIDERS: PCP Family Medicine; Visit Provider Family Medicine
DX: E78.5 Hyperlipidemia, unspecified (principal); I10 Essential (primary) hypertension; D64.9 Anemia, unspecified; Z00.00 Encounter for general adult medical examination without abnormal findings; R73.03 Prediabetes; E53.8 Deficiency of other specified B group vitamins; E55.9 Vitamin D deficiency, unspecified
CPT/HCPCS: 36415; 80053; 80061; 82306; 82330; 82607; 83036; 83970; 84443; 85025